=== PATIENT | female | born 1940 | race Caucasian/White ===

== ENCOUNTER 2019-11-13 06:34 | Outpatient (CLI) | payer MEDICARE, SELFPAY ==
[2019-11-13 07:29] LABS: Alanine Aminotransferase 13 U/L (4-35); Albumin Level 3.6 g/dL (3.5-5.1); Alkaline Phosphatase 154 U/L (38-126); Aspartate Amino Transferase 27 U/L (14-36); Bilirubin,Total 0.2 mg/dL (0.2-1.3); Blood Urea Nitrogen 11 mg/dL (7-17); Calcium 8.8 mg/dL (8.4-10.2); Carbon Dioxide 31 mmol/L (22-30); Chloride 101 mmol/L (98-107); Estimated Glomerular Filt Rate > 60; Glucose 96 mg/dL (65-105); Potassium 4.6 mmol/L (3.4-5.0); Sodium 137 mmol/L (137-145)
== END 2019-11-13 06:35 | disposition home or self-care (01) ==
PROVIDERS: PCP Family Medicine; Visit Provider Nurse Practitioner
DX: R82.90 Unspecified abnormal findings in urine (principal); E87.5 Hyperkalemia
CPT/HCPCS: 36415; 80053; 87077; 87086; 87088; 87186

== ENCOUNTER 2020-08-28 07:02 | Outpatient (NON) | payer MEDICARE, SELFPAY ==
[2020-08-28 23:00] LABS: SARS-CoV-2 RNA PCR Negative
== END 2020-08-28 07:03 ==
LOC: ANHCOVIDDT 07:05
PROVIDERS: Visit Provider Nurse Practitioner Family
DX: Z20.828 Contact with and (suspected) exposure to other viral communicable diseases (principal)
CPT/HCPCS: 87635; C9803; U0003

== ENCOUNTER 2020-10-13 07:32 | Outpatient (CLI) | payer MEDICARE, SELFPAY ==
--- NOTE | ~2020-10-13 | XR_ITS ---
EXAMINATION: XR chest 2V DATE: 10/13/2020 08:24 INDICATION: Acute upper respiratory tract infection. TECHNIQUE: PA and lateral views of the chest were obtained. COMPARISON: Chest radiograph dated 12/26/2017 FINDINGS: Hyperexpansion of lungs with increased lucency and architectural distortion in the upper lung zones c onsistent with emphysema better appreciated on CT dated 08/21/2017. Small nodular opacity in the left midlung zone in the region of prior more extensive airspace disease which could represent residual sc arring although differential includes malignancy. Mild increased interstitial pattern in the bilatera l lower lung zones with a few peripheral Joe B-lines consistent with minimal pulmonary edema. No p leural effusion or pneumothorax. The cardiomediastinal silhouette is normal. L1 vertebroplasty. IMPRESSION: 1. Increased interstitial pattern in the lower lung zones consistent with minimal pulmonary edema. 2. More discrete nodular opacity in the left midlung zone which could be related to scarring related to prior pneumonia although differential includes malignancy. Would recommend repeat chest CT for fur ther evaluation. Reviewed, dictated and finalized at location B. ET RUNNER IMPRESSION: 1. Increased interstitial pattern in the lower lung zones consistent with minim al pulmonary edema. 2. More discrete nodular opacity in the left midlung zone which could be relate d to scarring related to prior pneumonia although differential includes maligna ncy. Would recommend repeat chest CT for further evaluation.
[2020-10-13 08:24] LABS: Basophils Absolute Auto 0.1 K/mm3 (0.0-0.1); Basophils Percent Auto 0.6 % (0.2-1.2); Eosinophils Absolute Auto 0.3 K/mm3 (0-0.3); Eosinophils Percent Auto 3.3 % (0-4.4); Hematocrit 33.6 % (37.0-47.0); Hemoglobin 10.3 g/dL (12.0-15.0); Immature Granulocyte Absolute 0.02 K/mm3 (0.00-0.031); Immature Granulocyte Percent A 0.2 % (0-0.5); Lymphocytes Absolute Auto 2.15 K/mm3 (0.9-3.2); Lymphocytes Percent Auto 24.8 % (18.3-44.2); Mean Corpuscular HGB Conc 30.7 g/dl (32-36); Mean Corpuscular Volume 78.3 fl (80-100); Mean Platelet Volume 9.8 fl (7.4-10.4); Monocytes Absolute Auto 0.6 K/mm3 (0.1-0.6); Monocytes Percent Auto 6.9 % (2.6-8.5); Neutrophils Absolute Auto 5.6 K/mm3 (1.3-6.7); Neutrophils Percent Auto 64.2 % (45.5-73.1); Platelet Count Result 399 k/mm3 (150-375); Red Blood Count 4.29 M/mm3 (4.2-5.4); Red Cell Distribution Width 18.4 % (11.5-14.5); White Blood Count 8.7 K/mm3 (4.5-10.0)
[2020-10-13 08:34] LABS: Hemoglobin A1C 5.7 % (<5.7)
[2020-10-13 08:38] LABS: Alanine Aminotransferase 16 U/L (4-35); Albumin Level 3.4 g/dL (3.5-5.1); Alkaline Phosphatase 112 U/L (38-126); Anion Gap 2 mmol/L (8-16); Aspartate Amino Transferase 29 U/L (14-36); Bilirubin,Total 0.2 mg/dL (0.2-1.3); Blood Urea Nitrogen 16 mg/dL (7-17); Calcium 8.5 mg/dL (8.4-10.2); Carbon Dioxide 31 mmol/L (22-30); Chloride 103 mmol/L (98-107); Estimated Glomerular Filt Rate > 60; Glucose 108 mg/dL (65-105); Potassium 3.8 mmol/L (3.4-5.0); Sodium 136 mmol/L (137-145)
[2020-10-13 08:57] LABS: Creatinine Urine 63.2 mg/dL
[2020-10-13 09:01] LABS: MALB Creatinine Ratio 58.9 mg/g (0-30); Microalbumin Urine Random 37.2 mg/L (0-16.7)
== END 2020-10-13 07:33 | disposition home or self-care (01) ==
LOC: ANHLAB 07:34
PROVIDERS: PCP Nurse Practitioner Family; Visit Provider Nurse Practitioner Family
DX: J06.9 Acute upper respiratory infection, unspecified (principal); R05 Cough; J44.9 Chronic obstructive pulmonary disease, unspecified; E11.9 Type 2 diabetes mellitus without complications; F33.41 Major depressive disorder, recurrent, in partial remission; F51.01 Primary insomnia; I10 Essential (primary) hypertension
CPT/HCPCS: 36415; 71046; 80053; 82043; 83036; 84443; 85025

== ENCOUNTER 2020-11-09 09:14 | Outpatient (CLI) | payer MEDICARE, SELFPAY ==
--- NOTE | ~2020-11-09 | CT_ITS ---
EXAMINATION: CT chest abdomen pelvis w con EXAM DATE: 11/09/2020 10:00 INDICATION: Left lower lobe 9 mm nodule. Chest pain, shortness of breath, cough. Diffuse abdominal pa in. Weight loss. TECHNIQUE: Spiral CT of the chest, abdomen and pelvis was performed following intravenous injection o f 100 mL Omnipaque 350. Axial, coronal and sagittal images were reviewed. Coronal maximum intensity pixel images of chest reviewed. The dose-length product (DLP) for this examination was 271.63 mGy-c m. The exposure was tailored according to patient size (auto mA exposure control), and iterative rec onstruction (ASIR) was used as additional dose reduction technique. Comparison made to abdomen pelvi s CT 10/06/2018, chest CT 08/21/2017 FINDINGS: CHEST: There is moderate emphysema and moderate to severe hyperinflation. No interval change in the scattered spiculated perihilar opacities, consistent with postinfectious residua given long interval stability. Small amount of new postinfectious residua in the right middle lobe. There are no pleural or pericardial effusions. Tracheobronchial tree is patent. Precarinal 2.0 cm lymph node or nodes with calcifications, measured 1.8 cm in 2017. There is no pneumothorax. There is mild cardiomegal y. There is mild to moderate coronary arterial calcification, arterial sclerosis. ABDOMEN PELVIS: There is no change in the chronic left lower abdominal subcutaneous masslike density with region of calcification measuring 3 cm diameter by 1.2 cm in thickness, probably region of scarr ing, location of previous pain pump. The liver, spleen, adrenal glands and pancreas are unremarkable. Gallbladder not identified, patient likely has had cholecystectomy. There is mild biliary dilation, which is common finding following ch olecystectomy. There are small renal lesions in the left kidney consistent with cysts. Portal and sp lenic veins are patent. Kidneys enhance symmetrically. There is no hydronephrosis. The uterus is not identified and has likely been surgically resected. The bladder is unremarkable, although subopt imally evaluated due to metallic artifact from right hip replacement and left hip gamma nail.. There is no retroperitoneal or pelvic lymphadenopathy. There is extensive scattered arterial sclerotic d isease. The appendix is not positively visualized. There is no pericecal inflammatory change to suggest appe ndicitis. There is extensive sigmoid predominant colonic diverticulosis. There is no adjacent infla mmatory change to suggest diverticulitis. The stomach and small bowel are unremarkable. There is mod erate amount of colonic stool. No free intraperitoneal gas. There are no osteoblastic or osteolyt ic lesions identified. There are old right rib fractures. Mild thoracolumbar dextroscoliosis. Treated L1 vertebroplasty. Pain pump leads in the inferior aspect of the spinal canal. IMPRESSION: 1. Chronic spiculated lung opacities and mediastinal lymphadenopathy, likely prior granulomatous pro cess. 2. Chronic soft tissue density with calcification left lower anterior abdominal subcutaneous tissue, probably scarring. 3. Chronic emphysema and hyperinflation. 4. Colonic diverticulosis. Reviewed, dictated and finalized at location B. O STATION MANAGER IMPRESSION: 1. Chronic spiculated lung opacities and mediastinal lymphadenopathy, likely p rior granulomatous process. 2. Chronic soft tissue density with calcification left lower anterior abdomina l subcutaneous tissue, probably scarring. 3. Chronic emphysema and hyperinflation. 4. Colonic diverticulosis.
== END 2020-11-09 09:15 | disposition home or self-care (01) ==
PROVIDERS: PCP Nurse Practitioner Family; Visit Provider Nurse Practitioner Family
DX: R19.04 Left lower quadrant abdominal swelling, mass and lump (principal); K57.30 Diverticulosis of large intestine without perforation or abscess without bleeding; J43.9 Emphysema, unspecified
CPT/HCPCS: 71260; 74177; Q9967

== ENCOUNTER 2020-11-25 02:45 | Inpatient (IN) | payer MEDICARE, SELFPAY ==
[2020-11-25] VITALS (14 sets, daily range): BP systolic 100–149; BP diastolic 40–125; PULSE 58–79; RESP 16–28; TEMP 36.2–36.9; O2SAT 87–100; BMI 17.2
--- NOTE | ~2020-11-25 | XR_ITS ---
EXAMINATION: XR chest 1V portable DATE: 11/25/2020 03:08 INDICATION: Shortness of breath. Cough. TECHNIQUE: A single frontal view of the chest was obtained. COMPARISON: Chest 2 views 10/13/2020, chest CT 11/09/2020 FINDINGS: The lungs are hyperexpanded with lucencies, consistent with emphysema. There is a diffuse i nterstitial pattern in the lungs. There are patchy airspace opacities in the mid and lower lung zones . There is a small right pleural effusion. No pneumothorax. The heart size is normal. There are palma es of vertebroplasty in L1. IMPRESSION: 1. Diffuse lung disease, consistent with pulmonary edema versus pneumonia superimposed on emphysema. 2. Small right pleural effusion. Reviewed, dictated and finalized at location A. CULTURE FARMER IMPRESSION: 1. Diffuse lung disease, consistent with pulmonary edema versus pneumonia super imposed on emphysema. 2. Small right pleural effusion.
--- NOTE | ~2020-11-25 | XR_ITS ---
EXAMINATION: XR chest 2V DATE: 11/28/2020 12:51 INDICATION: Hypoxia. TECHNIQUE: Frontal and lateral views of the chest were obtained. COMPARISON: Chest single view 11/25/2020, chest CT 11/09/2020, chest 2 views 10/13/2020 FINDINGS: The lungs are hyperexpanded with lucencies, consistent with emphysema. There are mild airsp kieran opacities in right lower lung zone and left mid and lower lung zones. There are small pleural eff usions. No pneumothorax. The heart size is normal. There are changes of vertebroplasty at L1. There i s mild chronic anterior wedging of multiple thoracic vertebral bodies. IMPRESSION: 1. Mild airspace opacities in right lower lung zone and left mid and lower lung zones, consistent wit h pneumonia. 2. Emphysema. 3. Small pleural effusions. Reviewed, dictated and finalized at location A. IMPRESSION: 1. Mild airspace opacities in right lower lung zone and left mid and lower lung zones, consistent with pneumonia. 2. Emphysema. 3. Small pleural effusions.
--- NOTE | 2020-11-25 02:49 | ECG_ITS ---
Measurements Intervals [place] Rate: 72 P: 254 LA: 241 QRS: 30 QRSD: 98 T: 57 QT: 404 QTc: 444 Interpretive Statements SINUS RHYTHM BASELINE ARTIFACT- I, II, III, AVR, AVL, AVF, V1-V6 NORMAL ECG Electronically Signed On 11-25-2020 7:36:54 [employer]PUTY CITY CLERK by Buck Friend D.O.
[2020-11-25] MEDS: ALBUTEROL SULFATE (*SP) INHALER 2 PUFF INHALATION (03:07)
--- NOTE | 2020-11-25 03:09 | ED.GENADULT ---
HPI - General Adult General Chief complaint: Shortness of Breath/Dyspnea Stated complaint: DIFFICULTY BREATHING Time Seen by Provider: 11/25/20 02:51 History of Present Illness HPI narrative: Patient is a 80-year-old female that presents the emergency department with chief complaint of shortness of breath. Patient reports she has history of COPD and over the last several days she has been having increasing shortness of breath. The patient reports has been wheezing more at some tightness in her chest as well. Patient denies productive cough. Patient also incidentally reports that she has had some increasing swelling in her left lower extremity and right lower extremity. The patient does report that she is on chronic anticoagulation. Related Data Home Medications Medication Instructions Recorded Confirmed morphine 15 mg tablet,oral ONLY 15 mg PO Q8H tablet 10/20/19 10/12/20 (not feeding tubes) alendronate 70 mg tablet mg PO WEEKLY tablet 07/10/20 10/12/20 Allergies Allergy/AdvReac Type Severity Reaction Status Date / Time metoclopramide Allergy Severe TONGUE Verified 11/25/20 03:24 SWELLING Penicillins Allergy Mild Pruritic Verified 11/25/20 03:24 rash codeine Allergy Unknown Unknown Verified 11/25/20 03:24 duloxetine Allergy Unknown Unknown Verified 11/25/20 03:24 ibuprofen Allergy Unknown Unknown Verified 11/25/20 03:24 meperidine Allergy Unknown Unknown Verified 11/25/20 03:24 rosuvastatin Allergy Unknown Unknown Verified 11/25/20 03:24 Sulfa (Sulfonamide Allergy Unknown Unknown Verified 11/25/20 03:24 Antibiotics) sulfanilamide Allergy Unknown unknown Verified 11/25/20 03:24 Review of Systems Review of Systems: Narrative: A 10 system review of systems was completed on the patient and is negative except for what is stated in the HPI. Nursing and ancillary documentation was reviewed. 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) Essential hypertension History of cerebrovascular accident with current residual effects Multiple lung nodules Non-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 Other osteoporosis without current pathological fracture Other specified depressive episodes Peripheral artery disease Personal history of (healed) traumatic fracture Post traumatic stress disorder (PTSD) Post-traumatic stress disorder, chronic Presence of pancreatic duct stent (~1995) Primary insomnia Recurrent major depressive disorder, 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 Unspecified chronic gastritis without bleeding Upper respiratory infection, acute Surgical History Surgical History H/O: hysterectomy (~1970) Removal of tumors, cysts and adhesions History of angioplasty of peripheral vessel 01/31: stent left pop/SFA History of appendectomy (~1962) History of cholecystectomy (~1962) History of hip replacement 2017 - Right History of laparoscopy 1997 - for adhesionolysis History of laparotomy 1966, 1968 - tumor excision 1972 - hysterectomy History of lumbosacral spine surgery 1977, 1978, 1992, 1993, Hx of sinus surgery 1984, 1985 Family History Family History Father Hypertension Cerebrovascular accident Family history of diabetes mellitus in first degree relative Family history of coronary artery disease Patient's father is Mother Hypertension Cerebrovascular accident Family history of coronary artery disease Patient's mother is Sibling Hypertension Family history of coronary artery disease Grandparent Diabetes mellitus Other Family history of arthritis Family history of cardi
[2020-11-25] MEDS: MORPHINE SULFATE (*CRX) 4 MG/ML INJ IV PUSH (03:11)
[2020-11-25] MEDS: methylPREDNISolone SOD SUCC 125 MG VIAL IV PUSH (03:11)
[2020-11-25 03:20] LABS: Basophils Absolute Auto 0.1 K/mm3 (0.0-0.1); Basophils Percent Auto 0.3 % (0.2-1.2); Eosinophils Absolute Auto 0.2 K/mm3 (0-0.3); Eosinophils Percent Auto 1.1 % (0-4.4); Hematocrit 32.2 % (37.0-47.0); Hemoglobin 10.1 g/dL (12.0-15.0); Immature Granulocyte Absolute 0.09 K/mm3 (0.00-0.031); Immature Granulocyte Percent A 0.5 % (0-0.5); Lymphocytes Absolute Auto 1.24 K/mm3 (0.9-3.2); Lymphocytes Percent Auto 6.8 % (18.3-44.2); Mean Corpuscular HGB Conc 31.4 g/dl (32-36); Mean Corpuscular Hemoglobin 23.8 pg (26-34); Mean Corpuscular Volume 75.9 fl (80-100); Mean Platelet Volume 9.8 fl (7.4-10.4); Monocytes Absolute Auto 0.7 K/mm3 (0.1-0.6); Monocytes Percent Auto 3.9 % (2.6-8.5); Neutrophils Absolute Auto 15.9 K/mm3 (1.3-6.7); Neutrophils Percent Auto 87.4 % (45.5-73.1); Platelet Count Result 334 k/mm3 (150-375); Red Blood Count 4.24 M/mm3 (4.2-5.4); Red Cell Distribution Width 17.6 % (11.5-14.5); White Blood Count 18.2 K/mm3 (4.5-10.0)
[2020-11-25 03:31] LABS: Anion Gap 2 mmol/L (8-16); Blood Urea Nitrogen 17 mg/dL (7-17); Calcium 8.6 mg/dL (8.4-10.2); Carbon Dioxide 28 mmol/L (22-30); Chloride 104 mmol/L (98-107); Estimated Glomerular Filt Rate > 60; Glucose 110 mg/dL (65-105); Potassium 4.5 mmol/L (3.4-5.0); Prothrombin Time 13.9 Seconds (11.1-14.7); Sodium 134 mmol/L (137-145)
[2020-11-25 03:32] LABS: Alanine Aminotransferase 28 U/L (4-35); Albumin Level 3.6 g/dL (3.5-5.1); Alkaline Phosphatase 141 U/L (38-126); Aspartate Amino Transferase 56 U/L (14-36); Bilirubin,Total 0.2 mg/dL (0.2-1.3); Partial Thromboplastin Time 32.4 SECONDS (22.3-36.8)
[2020-11-25 03:43] LABS: NT Pro B Type Natriuretic Pept 5430 PG/ML (5-100); Troponin I 0.013 ng/mL (0.000-0.034)
[2020-11-25] MEDS: FUROSEMIDE INJ 40 MG/4 ML VIAL IV PUSH (04:33)
--- NOTE | 2020-11-25 05:15 | ADMGEN ---
This patient, Mariam Pérez, was admitted to [facility] Surg Room 316-01. Patient/family oriented to hospital policies and general routines including ID bracelet, bed and alarms, visiting hours, pain management, procedures, bathroom and other care routines, personal items, smoking policy, room service/diet, and visiting hours. Information on how to activate the Rapid Response Team has been discussed. Patient/Family are encouraged to report perceived risks to care and to ask questions if they do not understand what they are told or what they should do.
[2020-11-25] MEDS: IPRATROPIUM BR 0.02% INH SOLN 0.5 MG/2.5 ML VIAL INHALATION (08:41)
[2020-11-25] MEDS: ALBUTEROL SULFATE NEB 2.5 MG/0.5 ML INH 5 MG INHALATION (08:41)
[2020-11-25] MEDS: ACETAMINOPHEN 325 MG TABLET 650 MG PO ×2 (11:44→17:58)
[2020-11-25] MEDS: methylPREDNISolone SOD SUCC 125 MG VIAL 60 MG IV PUSH ×3 (11:45→21:10)
[2020-11-25 12:25] LABS: Glucose Point of Care 207 (65-105)
[2020-11-25] MEDS: MORPHINE SULFATE (*CRX) 15 MG TABCR PO ×2 (15:37→21:10)
[2020-11-25] MEDS: AMIODARONE HCL 200 MG TABLET BY MOUTH (15:38)
[2020-11-25] MEDS: METOPROLOL SUCCINATE EXT REL 50 MG TABCR BY MOUTH (15:38)
--- NOTE | 2020-11-25 16:31 | PM.IMHP ---
H&P: HPI History of Present Illness Date/Time: 11/25/20 16:31 Pt admitted with SOB Pt has history of hypertension, dyslipidemia, diabetes, COPD, atrial fibrillation, peripheral arterial disease, GERD, seizures, history of stroke, chronic back pain and osteoporosis he is here complaining of worsening shortness of breath with exertion with chest tightness and wheezing. Pt has known history of COPD but has symptoms of cough and wheeze so covid is being checked. pt has multiple medical problems listed above. And has not been well for few days. 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) Essential hypertension History of cerebrovascular accident with current residual effects Multiple lung nodules Non-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 Other osteoporosis without current pathological fracture Other specified depressive episodes Peripheral artery disease Personal history of (healed) traumatic fracture Post traumatic stress disorder (PTSD) Post-traumatic stress disorder, chronic Presence of pancreatic duct stent (~1995) Primary insomnia Recurrent major depressive disorder, 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 Unspecified chronic gastritis without bleeding Upper respiratory infection, acute Surgical History Surgical History H/O: hysterectomy (~1970) Removal of tumors, cysts and adhesions History of angioplasty of peripheral vessel 01/31: stent left pop/SFA History of appendectomy (~1962) History of cholecystectomy (~1962) History of hip replacement 2018 - Right History of laparoscopy 1997 - for adhesionolysis History of laparotomy 1966, 1968 - tumor excision 1972 - hysterectomy History of lumbosacral spine surgery 1977, 1978, 1992, 1994, Hx of sinus surgery 1984, 1986 Family History Family History Father Hypertension Cerebrovascular accident Family history of diabetes mellitus in first degree relative Family history of coronary artery disease Patient's father is Mother Hypertension Cerebrovascular accident Family history of coronary artery disease Patient's mother is Sibling Hypertension Family history of coronary artery disease Grandparent Diabetes mellitus Other Family history of arthritis Family history of cardiovascular disease Family history of lung cancer Family history of lupus erythematosus Social History Social History Years smoked: 50 Smoking status: Current some day smoker Tobacco type: cigarettes Second hand tobacco smoke exposure: No Smoking end date: 09/15/08 Alcohol intake: current Drinks per week: 1 Substance use: never Substance use type: does not use Gender identity (if verbalized by the patient): Female Sexual Orientation (if Verbalized by the Patient): Straight or Heterosexual Spiritual care concerns: Yes ( Praying to God that I wasn't going to . I have so much still to do. ) Meds Home Medications and Allergies Home Medications Medication Instructions Recorded Confirmed Type morphine 15 mg tablet,oral ONLY 15 mg PO Q8H tablet 10/20/19 11/25/20 History (not feeding tubes) gabapentin 600 mg tablet See Rx Instructions .ROUTE 03/20/20 11/25/20 Rx .COMPLEX #360 tablet atorvastatin 40 mg tablet See Rx Instructions .ROUTE 04/26/20 11/25/20 Rx .COMPLEX #90 tablet nitroglycerin 0.4 mg sublingual 0.4 mg SUBLINGUAL Q5M P
[2020-11-25 17:09] LABS: Glucose Point of Care 138 (65-105)
[2020-11-25] MEDS: APIXABAN 2.5 MG TABLET PO (17:59)
[2020-11-25] MEDS: FAMOTIDINE 20 MG TABLET PO (17:59)
[2020-11-25] MEDS: GABAPENTIN 300 MG CAPSULE BY MOUTH ×2 (17:59→21:10)
[2020-11-25 18:54] LABS: SARS-CoV-2 RNA PCR Negative
[2020-11-25] MEDS: levETIRAcetam 500 MG TABLET BY MOUTH (21:10)
[2020-11-25 22:17] LABS: Glucose Point of Care 153 (65-105)
[2020-11-26] VITALS (7 sets, daily range): BP systolic 142–158; BP diastolic 45–77; PULSE 56–68; RESP 18–20; TEMP 36.3–36.7; O2SAT 96–100
[2020-11-26] MEDS: ACETAMINOPHEN 325 MG TABLET 650 MG PO (03:40)
[2020-11-26] MEDS: methylPREDNISolone SOD SUCC 125 MG VIAL 60 MG IV PUSH ×4 (03:40→22:06)
--- NOTE | 2020-11-26 05:21 | PC.NURSE ---
Daylight Savings Time For Daylight Savings Time Ending in the Fall - Clocks are moved back. For Daylight Savings Time Beginning in the Spring - Clocks are moved ahead. For [facility], the time of change occurs at 0200 hrs. Time is taken from the buffet server. This entry on the patient's chart recognizes the change in time reflected during documentation. Example: 2 entries for vital signs may be charted for 0200 hrs.
[2020-11-26] MEDS: MORPHINE SULFATE (*CRX) 15 MG TABCR PO ×3 (06:08→23:53)
[2020-11-26 06:27] LABS: Anion Gap 2 mmol/L (8-16); Blood Urea Nitrogen 22 mg/dL (7-17); Calcium 8.7 mg/dL (8.4-10.2); Carbon Dioxide 33 mmol/L (22-30); Chloride 100 mmol/L (98-107); Estimated CRCL calculation 40 ml/min; Estimated Glomerular Filt Rate > 60; Glucose 134 mg/dL (65-105); Potassium 4.3 mmol/L (3.4-5.0); Sodium 135 mmol/L (137-145)
[2020-11-26 06:52] LABS: Hematocrit 32.2 % (37.0-47.0); Mean Corpuscular HGB Conc 31.1 g/dl (32-36); Mean Corpuscular Hemoglobin 23.3 pg (26-34); Mean Corpuscular Volume 75.1 fl (80-100); Mean Platelet Volume 10.5 fl (7.4-10.4); Platelet Count Result 330 k/mm3 (150-375); Red Blood Count 4.29 M/mm3 (4.2-5.4); Red Cell Distribution Width 17.3 % (11.5-14.5); White Blood Count 14.5 K/mm3 (4.5-10.0)
[2020-11-26 08:13] LABS: Glucose Point of Care 120 (65-105)
[2020-11-26] MEDS: GABAPENTIN 300 MG CAPSULE BY MOUTH ×3 (08:52→17:10)
[2020-11-26] MEDS: SOLIFENACIN 5 MG TABLET PO (08:52)
[2020-11-26] MEDS: FAMOTIDINE 20 MG TABLET PO ×2 (08:52→17:09)
[2020-11-26] MEDS: levETIRAcetam 500 MG TABLET BY MOUTH (08:52)
[2020-11-26] MEDS: metFORMIN HCL 500 MG TABLET PO (08:52)
[2020-11-26] MEDS: METOPROLOL SUCCINATE EXT REL 50 MG TABCR BY MOUTH (08:53)
[2020-11-26] MEDS: AMIODARONE HCL 200 MG TABLET BY MOUTH (08:53)
[2020-11-26] MEDS: APIXABAN 2.5 MG TABLET PO ×2 (08:53→17:10)
--- NOTE | 2020-11-26 12:18 | PM.IMPN ---
Progress Note: A&P Assessment and Plan (1) Acute exacerbation of chronic obstructive pulmonary disease: Code(s): J44.1 - Chronic obstructive pulmonary disease with (acute) exacerbation Status: Acute Assessment and Plan: Bronchodilators, steroid inhaler, iv steroids, oral levaquin D/w patient that she may need home oxygen at discharge (2) A-fib: Qualifiers: Atrial fibrillation type: unspecified Qualified Code(s): I48.91 - Unspecified atrial fibrillation Code(s): I48.91 - Unspecified atrial fibrillation Status: Chronic Assessment and Plan: Continue pts betablocker and amiodarone (3) Tobacco use: Code(s): Z72.0 - Tobacco use Status: Acute Assessment and Plan: Advised to quit (4) GERD (gastroesophageal reflux disease): Qualifiers: Esophagitis presence: esophagitis presence not specified Qualified Code(s): K21.9 - Gastro-esophageal reflux disease without esophagitis Code(s): K21.9 - Gastro-esophageal reflux disease without esophagitis Status: Acute Assessment and Plan: On pepcid (5) Type 2 diabetes mellitus with other circulatory complications: Code(s): E11.59 - Type 2 diabetes mellitus with other circulatory complications Status: Acute Assessment and Plan: Accuchecks, SSI, continue metformin (6) Peripheral artery disease: Code(s): I73.9 - Peripheral vascular disease, unspecified Status: Acute Assessment and Plan: On gabapentin and iv morphine for chronic pain Subjective Date/time seen: 11/26/20 12:18 Interval history: 11/26: Here for COPD exacerbation. Still sob with conversation. Does not wear home oxygen. C/o chronic LUQ to LLQ abdominal pain, moderate, aching/cramping, after eating. Persists for minutes to hours. No change in stool or urine. No n/v. No sure about weight change. Hx pain pump removed and pocket infection in past. CT Abd here 11/09 showed chronic scarring in suerficial LLQ, chronic lung granulomas, diverticulosis, COPD. Review of Systems Review of Systems: All systems reviewed & are unremarkable except as noted in HPI and below Exam Narrative: Exam Narrative: HEENT: PERRL, sclerae nonicteric, pharyngeal mucosa pink and intact NECK: No JVD, adenopathy, or thyromegaly CHEST: Mildly tachypneic. Increased APD. Coarse BS. HEART: NL S1/S2, regular, no murmur ABDOMEN: BS+, soft, nontender, no mass, no bruits EXTREMITIES: No cyanosis, edema, or clubbing NEUROLOGIC: CN intact and symmetric to inspection. MUSCULOSKELETAL: Tone and strength symmetric. PSYCH: Alert. Oriented to person, place, and time. Anxious. Objective Data Vital Signs Vital Signs: Vital Signs - 24 hr 11/25/20 12:00 11/25/20 16:00 11/25/20 20:22 Temperature 97.3 F L 97.5 F L Pulse Rate 59 L 62 Respiratory Rate 18 20 Blood Pressure 120/55 L 118/53 L Pulse Oximetry 99 98 96 11/25/20 21:20 11/25/20 21:24 11/26/20 06:00 Temperature 98.3 F 98.0 F Pulse Rate 62 58 L 59 L Respiratory Rate 20 20 18 Blood Pressure 125/40 L 158/53 H Pulse Oximetry 96 98 100 11/26/20 08:00 11/26/20 08:44 Temperature Pulse Rate Respiratory Rate Blood Pressure Pulse Oximetry 96 96 Intake/Output Intake/Output: Intake & Output 11/23/20 11/24/20 11/25/20 11/27/20 23:59 23:59 23:59 00:59 Intake Total 2760 570 Output Total 3750 800 Balance -990 -230 Meds/Results Medications: Active Medications Generic Name Dose Route Start Last Admin Trade Name Freq PRN Reason Stop Dose Admin Acetaminophen 650 mg 11/25/20 11:27 11/26/20 03:40 Acetaminophen 325 Mg Tablet PO 650 mg Q8H PRN Administration Mild Pain (1-3) or Fever Amiodarone HCl 200 mg 11/25/20 14:25 11/26/20 08:53 Amiodarone Hcl 200 Mg Tablet BY MOUTH 200 mg DAILY CHAY Administration Apixaban 2.5 mg 11/25/20 17:00 11/26/20 08:53 Apixaban 2.5 Mg Tablet PO 2.5 mg BID CHAY Admin
[2020-11-26 12:19] LABS: Glucose Point of Care 140 (65-105)
[2020-11-26] MEDS: LORazepam (*CRX) 0.5 MG TABLET PO (14:43)
[2020-11-26 17:13] LABS: Glucose Point of Care 136 (65-105)
[2020-11-26] MEDS: ONDANSETRON INJ 4 MG/2 ML VIAL IV PUSH (22:03)
[2020-11-26 22:45] LABS: Glucose Point of Care 126 (65-105)
[2020-11-27] VITALS (8 sets, daily range): BP systolic 131–161; BP diastolic 36–63; PULSE 66–109; RESP 18–20; TEMP 36.4–36.8; O2SAT 91–96; BMI 17.2
[2020-11-27] MEDS: LORazepam (*CRX) 0.5 MG TABLET PO ×2 (02:09→09:52)
[2020-11-27] MEDS: ACETAMINOPHEN 325 MG TABLET 650 MG PO ×2 (02:09→09:52)
[2020-11-27] MEDS: methylPREDNISolone SOD SUCC 125 MG VIAL 60 MG IV PUSH ×4 (02:09→23:18)
[2020-11-27] MEDS: MORPHINE SULFATE (*CRX) 15 MG TABCR PO ×2 (06:01→13:50)
[2020-11-27 06:02] LABS: Hematocrit 38.2 % (37.0-47.0); Hemoglobin 11.7 g/dL (12.0-15.0); Mean Corpuscular HGB Conc 30.6 g/dl (32-36); Mean Corpuscular Hemoglobin 23.5 pg (26-34); Mean Corpuscular Volume 76.9 fl (80-100); Mean Platelet Volume 10.2 fl (7.4-10.4); Platelet Count Result 523 k/mm3 (150-375); Red Blood Count 4.97 M/mm3 (4.2-5.4); Red Cell Distribution Width 17.7 % (11.5-14.5)
[2020-11-27 06:55] LABS: Anion Gap 4 mmol/L (8-16); Blood Urea Nitrogen 27 mg/dL (7-17); Calcium 8.8 mg/dL (8.4-10.2); Carbon Dioxide 31 mmol/L (22-30); Chloride 101 mmol/L (98-107); Estimated CRCL calculation 40 ml/min; Estimated Glomerular Filt Rate > 60; Glucose 133 mg/dL (65-105); Potassium 4.2 mmol/L (3.4-5.0); Sodium 136 mmol/L (137-145)
[2020-11-27 07:52] LABS: Glucose Point of Care 144 (65-105)
[2020-11-27] MEDS: metFORMIN HCL 500 MG TABLET PO (08:26)
[2020-11-27] MEDS: AMIODARONE HCL 200 MG TABLET BY MOUTH (08:27)
[2020-11-27] MEDS: levETIRAcetam 500 MG TABLET BY MOUTH (08:28)
[2020-11-27] MEDS: APIXABAN 2.5 MG TABLET PO ×2 (08:28→17:29)
[2020-11-27] MEDS: GABAPENTIN 300 MG CAPSULE BY MOUTH ×3 (08:28→17:30)
[2020-11-27] MEDS: FAMOTIDINE 20 MG TABLET PO ×2 (08:28→17:30)
[2020-11-27] MEDS: METOPROLOL SUCCINATE EXT REL 50 MG TABCR BY MOUTH (08:29)
[2020-11-27] MEDS: SOLIFENACIN 5 MG TABLET PO (08:29)
--- NOTE | 2020-11-27 11:39 | PCNSR ---
On 11/27/20, the student, Phuong Cam, provided care and completed [facility] documentation on this patient. I have reviewed the student's documentation and agree with the findings.
[2020-11-27 12:09] LABS: Glucose Point of Care 125 (65-105)
--- NOTE | 2020-11-27 13:57 | PM.IMPN ---
Progress Note: A&P Assessment and Plan (1) Acute exacerbation of chronic obstructive pulmonary disease: Code(s): J44.1 - Chronic obstructive pulmonary disease with (acute) exacerbation Status: Acute Assessment and Plan: Pt is on breathing treatment, steroid inhaler, iv steroids, oral levaquin, Cxr shows emphysema changes. (2) Cough: Code(s): R05 - Cough Status: Acute Assessment and Plan: Covid is negative, pt is a smoker (3) A-fib: Qualifiers: Atrial fibrillation type: unspecified Qualified Code(s): I48.91 - Unspecified atrial fibrillation Code(s): I48.91 - Unspecified atrial fibrillation Status: Chronic Assessment and Plan: Continue pts betablocker and amiodarone (4) Tobacco use: Code(s): Z72.0 - Tobacco use Status: Acute Assessment and Plan: Adviced to quit (5) GERD (gastroesophageal reflux disease): Qualifiers: Esophagitis presence: esophagitis presence not specified Qualified Code(s): K21.9 - Gastro-esophageal reflux disease without esophagitis Code(s): K21.9 - Gastro-esophageal reflux disease without esophagitis Status: Acute Assessment and Plan: On pepcid (6) Type 2 diabetes mellitus with other circulatory complications: Code(s): E11.59 - Type 2 diabetes mellitus with other circulatory complications Status: Acute Assessment and Plan: Accuchecks, SSI, continue metformin (7) Peripheral artery disease: Code(s): I73.9 - Peripheral vascular disease, unspecified Status: Acute Assessment and Plan: On gabapentin and iv morphine for severe pain Subjective Date/time seen: 11/27/20 13:57 Interval history: 11/26: Here for COPD exacerbation. Multiple medical problems, hypertension, dyslipidemia, diabetes, COPD, atrial fibrillation, peripheral arterial disease, GERD, seizures, history of stroke, chronic back pain and osteoporosis, has pain pump in situ complains of leg pains today. Review of Systems Review of Systems: All systems reviewed & are unremarkable except as noted in HPI and below Exam Narrative: Exam Narrative: Tired appearing HENMT: Head: other (frail elderly cachexic ) Eyes: Pupils: Equal, round and reactive pupils present Resp: Effort & Inspection: Actively coughing Auscultation: diminished lung sounds Cardio: Heart sounds: S1 normal heart sound present and S2 normal heart sound present GI: Inspection: normal to inspection Auscultation: normal bowel sounds Skin: General skin exam: normal color and dry skin Neuro: Cranial nerves: Yes CN's II-XII intact bilaterally and Yes Equal, round and reactive pupils present Cognition (Neuro): normal cognition Speech: normal speech Motor exam (neuro): 5/5 motor strength present throughout Extrem: General: normal to inspection and other (Pain in her bilateral feet ) Psych: Appearance: grossly normal Mental Status: mental status grossly normal Objective Data Vital Signs Vital Signs: Vital Signs - 24 hr 11/26/20 14:00 11/26/20 20:00 11/26/20 20:55 Temperature 36.7 C Pulse Rate 56 L 68 Respiratory Rate 20 20 Blood Pressure 142/45 H Pulse Oximetry 99 97 97 11/26/20 22:00 11/27/20 06:00 11/27/20 07:35 Temperature 36.3 C L 36.5 C Pulse Rate 68 71 Respiratory Rate 20 18 Blood Pressure 145/77 H 154/63 H Pulse Oximetry 97 94 96 11/27/20 08:27 11/27/20 08:29 11/27/20 08:56 Temperature Pulse Rate 68 68 Respiratory Rate Blood Pressure Pulse Oximetry 93 Intake/Output Intake/Output: Intake & Output 11/24/20 11/25/20 11/26/20 11/27/20 22:59 22:59 23:59 23:59 Intake Total 340 Output Total Balance 340 Meds/Results Medications: Active Medications Generic Name Dose Route Start Last Admin Trade Name Freq PRN Reason Stop Dose Admin Acetaminophen 650 mg 11/25/20 11:27 11/27/20 09:52 Acetaminophen 325 Mg Tablet PO 65
[2020-11-27 17:33] LABS: Glucose Point of Care 133 (65-105)
[2020-11-28] VITALS (7 sets, daily range): BP systolic 121–175; BP diastolic 46–54; PULSE 52–102; RESP 16–18; TEMP 36.2–36.4; O2SAT 95–100
[2020-11-28] MEDS: methylPREDNISolone SOD SUCC 125 MG VIAL 60 MG IV PUSH ×3 (04:00→13:33)
[2020-11-28 07:50] LABS: Glucose Point of Care 104 (65-105)
[2020-11-28] MEDS: MORPHINE SULFATE (*CRX) 15 MG TABCR PO ×3 (08:25→22:02)
[2020-11-28] MEDS: metFORMIN HCL 500 MG TABLET PO (08:26)
[2020-11-28] MEDS: FAMOTIDINE 20 MG TABLET PO ×2 (08:27→17:03)
[2020-11-28] MEDS: AMIODARONE HCL 200 MG TABLET BY MOUTH (08:27)
[2020-11-28] MEDS: APIXABAN 2.5 MG TABLET PO ×2 (08:27→17:03)
[2020-11-28] MEDS: levETIRAcetam 500 MG TABLET BY MOUTH ×2 (08:28→20:13)
[2020-11-28] MEDS: GABAPENTIN 300 MG CAPSULE BY MOUTH ×4 (08:28→20:12)
[2020-11-28] MEDS: METOPROLOL SUCCINATE EXT REL 50 MG TABCR BY MOUTH (08:28)
[2020-11-28] MEDS: SOLIFENACIN 5 MG TABLET PO (08:29)
[2020-11-28 11:56] LABS: Glucose Point of Care 182 (65-105)
[2020-11-28 17:35] LABS: Glucose Point of Care 144 (65-105)
--- NOTE | 2020-11-28 17:48 | PM.IMPN ---
Progress Note: A&P Assessment and Plan (1) Acute exacerbation of chronic obstructive pulmonary disease: Code(s): J44.1 - Chronic obstructive pulmonary disease with (acute) exacerbation Status: Acute Assessment and Plan: Patient having clinical improvement with Solu-Medrol. Minimal wheezing at this time. Continue Symbicort. She is not on inhalers but currently on room air so will hold off on adding this. Switch to prednisone. (2) Cough: Code(s): R05 - Cough Status: Acute Assessment and Plan: Chest x-ray on admission showing diffuse lung disease. Covid is negative. BNP was 5430. Echocardiogram in 2018 showing normal EF with grade 1 diastolic dysfunction. Repeat chest x-ray more consistent with pneumonia. Patietn with multiple allergies. Will give Lasix x 1 and start azithromycin. monitor QTc. (3) A-fib: Qualifiers: Atrial fibrillation type: unspecified Qualified Code(s): I48.91 - Unspecified atrial fibrillation Code(s): I48.91 - Unspecified atrial fibrillation Status: Chronic Assessment and Plan: Patient was in normal sinus rhythm on admission by EKG. Heart rate well controlled. Continue amiodarone and Toprol XL. Continue Eliquis. (4) Type 2 diabetes mellitus with other circulatory complications: Code(s): E11.59 - Type 2 diabetes mellitus with other circulatory complications Status: Acute Assessment and Plan: A1c 5.7 in September. The patient's blood glucose was reviewed on 11/28 Glucose remains well controlled. Continue AccuCheks covering with sliding scale. Hypoglycemia protocol available as needed. Continue current medications. (5) Tobacco use: Code(s): Z72.0 - Tobacco use Status: Acute Assessment and Plan: Patient has been educated about the benefits of smoking cessation. (6) DVT prophylaxis: Code(s): Z29.9 - Encounter for prophylactic measures, unspecified Status: Acute Assessment and Plan: Eliquis Subjective Date/time seen: 11/28/20 17:48 Interval history: 80yo female with pAFib, COPD and DM here for SOB. Patient eating well. Walking to the bathroom. Pedal edema is much better. Wheezing is improved. Still has a cough productive of yellowish sputum. Also complains of sinus drainage. No chest pain. No shortness of breath Exam Narrative: Exam Narrative: AF 97.5 121/50 102 16 100% ra Gen -thin female no acute distress. Chest -left lower lobe inspiratory crackles otherwise few scattered expiratory wheezes. Normal respiratory rate. No conversational dyspnea CV - RRR S1/S2. Abd - Soft, NT/ND, Positive BS. left mid-abd non tender mass (chronic without change) Ext - trace pedal edema Psych - Nml mood and affect Skin - Warm and dry Objective Data Vital Signs Vital Signs: Vital Signs - 24 hr 11/27/20 20:00 11/27/20 21:52 11/28/20 06:00 Temperature 98.3 F 97.6 F Pulse Rate 109 H 55 L Respiratory Rate 18 18 Blood Pressure 131/36 L 164/46 H Pulse Oximetry 94 96 99 11/28/20 07:35 11/28/20 08:27 11/28/20 08:28 Temperature Pulse Rate 60 60 Respiratory Rate Blood Pressure Pulse Oximetry 100 11/28/20 08:48 11/28/20 14:00 Temperature 97.5 F L Pulse Rate 52 L 102 H Respiratory Rate 16 16 Blood Pressure 121/50 L Pulse Oximetry 95 100 Intake/Output Intake/Output: Intake & Output 11/25/20 11/26/20 11/27/20 11/28/20 22:59 23:59 23:59 23:59 Intake Total 340 640 Output Total 0 400 Balance 340 240 Meds/Results Medications: Active Medications Generic Name Dose Route Start Last Admin Trade Name Freq PRN Reason Stop Dose Admin Acetaminophen 650 mg 11/25/20 11:27 11/27/20 09:52 Acetaminophen 325 Mg Tablet PO 650 mg Q8H PRN Administration Mild Pain (1-3) or Fever Amiodarone HCl 200 mg 11/25/20 14:25 11/28/20 08:27 Amiodarone Hcl 200 Mg Tablet BY MOUTH 200 mg DAILY [facility] Ad
[2020-11-28] MEDS: AZITHROMYCIN 250 MG TABLET 500 MG PO (18:48)
[2020-11-28] MEDS: ACETAMINOPHEN 325 MG TABLET 650 MG PO (20:20)
[2020-11-28] MEDS: LORazepam (*CRX) 0.5 MG TABLET PO (20:21)
[2020-11-29] MEDS: MORPHINE SULFATE (*CRX) 15 MG TABCR PO (05:18)
[2020-11-29 05:56] VITALS: BP 164/58; PULSE 50; RESP 18; TEMP 36.4; O2SAT 96
[2020-11-29 06:14] LABS: Hematocrit 32.6 % (37.0-47.0); Hemoglobin 9.8 g/dL (12.0-15.0); Mean Corpuscular HGB Conc 30.1 g/dl (32-36); Mean Corpuscular Hemoglobin 23.1 pg (26-34); Mean Corpuscular Volume 76.9 fl (80-100); Mean Platelet Volume 10.3 fl (7.4-10.4); Platelet Count Result 329 k/mm3 (150-375); Red Blood Count 4.24 M/mm3 (4.2-5.4); Red Cell Distribution Width 17.2 % (11.5-14.5); White Blood Count 10.2 K/mm3 (4.5-10.0)
[2020-11-29 06:24] LABS: Anion Gap 2 mmol/L (8-16); Blood Urea Nitrogen 22 mg/dL (7-17); Carbon Dioxide 30 mmol/L (22-30); Chloride 103 mmol/L (98-107); Estimated CRCL calculation 47 ml/min; Estimated Glomerular Filt Rate > 60; Glucose 98 mg/dL (65-105); Magnesium 1.8 mg/dL (1.6-2.3); Phosphorus 2.8 mg/dL (2.5-4.5); Potassium 4.4 mmol/L (3.4-5.0); Sodium 135 mmol/L (137-145)
--- NOTE | 2020-11-29 07:00 | ECG_ITS ---
Measurements Intervals [place] Rate: 55 P: 87 RI: 165 QRS: 6 QRSD: 96 T: 32 QT: 487 QTc: 470 Interpretive Statements SINUS BRADYCARDIA PROLONGED QT INTERVAL BASELINE ARTIFACT- I, II, III, AVR, AVL, AVF, V1 ABNORMAL ECG Electronically Signed On 11-29-2020 9:04:27 CDT by Buck Friend D.O.
--- NOTE | 2020-11-29 07:32 | PC.NURSE ---
Patient stated that she did not get a lorazepam as requested and that the white pill was a Eloquis. She was shown the pill with it's identifiers on [employer]. After taking her pills she appeared to rest quietly through the night and woke suddenly in the AM getting out of bed w/o assistance and running to the BR.
[2020-11-29] MEDS: predniSONE 20 MG TABLET 40 MG PO (07:50)
[2020-11-29] MEDS: GABAPENTIN 300 MG CAPSULE BY MOUTH ×2 (07:50→12:34)
[2020-11-29] MEDS: metFORMIN HCL 500 MG TABLET PO (07:50)
[2020-11-29] MEDS: AMIODARONE HCL 200 MG TABLET BY MOUTH (07:51)
[2020-11-29] MEDS: AZITHROMYCIN 250 MG TABLET PO (07:51)
[2020-11-29] MEDS: FAMOTIDINE 20 MG TABLET PO (07:51)
[2020-11-29] MEDS: APIXABAN 2.5 MG TABLET PO (07:51)
[2020-11-29 07:52] LABS: Glucose Point of Care 103 (65-105)
[2020-11-29] MEDS: FUROSEMIDE INJ 40 MG/4 ML VIAL 20 MG IV PUSH (07:52)
[2020-11-29] MEDS: METOPROLOL SUCCINATE EXT REL 50 MG TABCR BY MOUTH (07:53)
[2020-11-29] MEDS: SOLIFENACIN 5 MG TABLET PO (07:53)
[2020-11-29] MEDS: levETIRAcetam 500 MG TABLET BY MOUTH (07:55)
[2020-11-29 08:00] VITALS: PULSE 60; RESP 18; O2SAT 96
[2020-11-29 08:15] LABS: Iron 26 ug/dL (37-170)
[2020-11-29 08:27] LABS: Percent Iron Saturation 7 % (20-50)
[2020-11-29 12:12] LABS: Glucose Point of Care 227 (65-105)
[2020-11-29] MEDS: INSULIN ASPART (*BKC) 100 UNITS/ML SUB-Q (12:46)
[2020-11-29 14:00] VITALS: BP 138/47; PULSE 60; RESP 18; TEMP 36.3; O2SAT 94
--- NOTE | 2020-11-29 14:04 | PM.DS ---
DS: Admitting Diagnosis Admitting Diagnosis Admitting Diagnosis: SOB DS: Discharge Diagnosis Discharge Diagnosis (1) Acute exacerbation of chronic obstructive pulmonary disease: Code(s): J44.1 - Chronic obstructive pulmonary disease with (acute) exacerbation Status: Acute Assessment and Plan: Patient felt to have a COPD exacerbation. She was started on Solu-Medrol and had clinical improvement. Wheezing resolved. We continued her Symbicort. She was able to be transitioned to prednisone. She was able to be weaned to room air. (2) Cough: Code(s): R05 - Cough Status: Acute Assessment and Plan: Chest x-ray on admission showing diffuse lung disease. Covid is negative. BNP was 5430. Echocardiogram in 2018 showing normal EF with grade 1 diastolic dysfunction. Repeat chest x-ray showing mild airspace opacities in right lower lung zone and left mid and lower lung zones. Patient with multiple allergies. She was given Lasix x 1 and started on azithromycin. Her QTc increased to 470. Decided not to continue abx since no fever. WBC was elevated but on steroids on admission. And she had good results with the Lasix. (3) A-fib: Qualifiers: Atrial fibrillation type: unspecified Qualified Code(s): I48.91 - Unspecified atrial fibrillation Code(s): I48.91 - Unspecified atrial fibrillation Status: Chronic Assessment and Plan: Patient was in normal sinus rhythm on admission by EKG. Heart rate well controlled. We continued her amiodarone and Toprol XL. We continued her Eliquis. (4) Type 2 diabetes mellitus with other circulatory complications: Code(s): E11.59 - Type 2 diabetes mellitus with other circulatory complications Status: Acute Assessment and Plan: A1c 5.7 in September. The patient's blood glucose was monitored closely and it remained well controlled. Continue AccuCheks covering with sliding scale. Hypoglycemia protocol available as needed. (5) Tobacco use: Code(s): Z72.0 - Tobacco use Status: Acute Assessment and Plan: Patient was educated about the benefits of smoking cessation. DS: Summary Hospital Course Reason for hospitalization: 80yo female with pAFib, COPD and DM here for SOB. Please see H&P for details Hospital Course: Please see above for details of hospital course. Status at Discharge Cognitive/behavioral status at discharge: Stable Functional status at discharge: independent ambulation Overall status at discharge: patient is back to baseline Time Spent with Patient Time attestation: Total time spent providing and/or coordinating discharge services: 35 minutes Time spent: Greater than 30 minutes Exam Narrative: Exam Narrative: Cough is better. No chest pain or shortness of breath. Slight wheezing. She states ?I am 100% better compared to when I came in . AF 97.4 138/47 60 18 94% ra Gen -thin female no acute distress. Chest - CTA bilaterally, distant BS, nml air exchange, no wheezing CV - RRR S1/S2. Abd - Soft, NT/ND, Positive BS. Ext - no pedal edema Psych - Nml mood and affect Skin - Warm and dry DS: Data Data Completed and Pending Labs on day of discharge: Labs from last 24 hours 11/29/20 11/29/20 11/29/20 12:02 07:37 06:00 WBC RBC Hgb Hct MCV MCH MCHC RDW Plt Count MPV Sodium Potassium Chloride Carbon Dioxide Anion Gap BUN Creatinine Estim Creat Clear Calc Estimated GFR Glucose POC Capillary Glucose 227 H 103 Calcium Phosphorus Magnesium Iron 26 L TIBC 382 % Saturation 7 L Ferritin 21.80 Albumin 11/29/20 11/29/20 11/28/20 06:00 06:00 17:07 WBC 10.2 H RBC 4.24 Hgb 9.8 L Hct 32.6 L MCV 76.9 L MCH 23.1 L MCHC 30.1 L RDW 17.2 H Plt Count 329 MPV 10.3 Sodium 135 L Potassium 4.4 Chloride 103 Carbon Dioxide 30
== END 2020-11-29 15:40 | disposition home or self-care (01) | DRG 192 ==
LOC: ANHED 04:24 → ANH3MEDSUR 04:46
PROVIDERS: Family Medicine; Internal Medicine; Admitting Provider Family Medicine; Emergency Provider Emergency Medicine; PCP Family Medicine; Visit Provider Internal Medicine
DX: J44.1 Chronic obstructive pulmonary disease with (acute) exacerbation (principal); Z20.822 Contact with and (suspected) exposure to COVID-19; R05 Cough; F17.210 Nicotine dependence, cigarettes, uncomplicated; I10 Essential (primary) hypertension; I48.91 Unspecified atrial fibrillation; E11.51 Type 2 diabetes mellitus with diabetic peripheral angiopathy without gangrene; E78.5 Hyperlipidemia, unspecified; F43.12 Post-traumatic stress disorder, chronic; K21.9 Gastro-esophageal reflux disease without esophagitis; Z28.21 Immunization not carried out because of patient refusal; Z79.01 Long term (current) use of anticoagulants; Z79.84 Long term (current) use of oral hypoglycemic drugs; Z79.899 Other long term (current) drug therapy; Z86.73 Personal history of transient ischemic attack (TIA), and cerebral infarction without residual deficits
CPT/HCPCS: 36415; 71045; 71046; 80048; 80069; 80076; 82728; 82948; 83540; 83550; 83735; 83880; 84484; 85025; 85027; 85610; 85730; 87040; 93005; 94640; 96374; 96375; 96376; 99285; A9270; C9803; G0378; J1815; J1940; J2270; J2405; J2930; J7512; U0003; U0005

== ENCOUNTER 2020-12-19 15:06 | Emergency (ER) | payer MEDICARE, SELFPAY ==
--- NOTE | ~2020-12-19 | XR_ITS ---
EXAMINATION: XR foot LT min 3V, XR ankle LT min 3V EXAM DATE: 12/19/2020 15:58 (accession [id number]), 12/19/2020 15:59 (accession [id number]) INDICATION: Ulcerations lat Lt ankle, post Lt heel; type 2 diabetic. TECHNIQUE: Left foot dorsoplantar, lateral and oblique projections obtained and reviewed. Left ankle frontal, lateral and oblique projections obtained and reviewed. Comparison is made to prior examinat ion from 10/02/2018. FINDINGS: There is severe edema over the left ankle and foot. Some ulcerations identified along the l ateral aspect of the ankle. There are no bony erosions identified. There are no acute fractures ident ified. No radiopaque foreign bodies identified. IMPRESSION: 1. No acute osseous findings. 2. Severe subcutaneous edema with soft tissue ulceration. Reviewed, dictated and finalized at location A. IMPRESSION: 1. No acute osseous findings. 2. Severe subcutaneous edema with soft tissue ulceration.
[2020-12-19 15:14] VITALS: BP 137/70; PULSE 61; RESP 16; TEMP 36.9; O2SAT 98
--- NOTE | 2020-12-19 15:27 | ED.GENADULT ---
HPI - General Adult General Chief complaint: Wound/Laceration Stated complaint: L FOOT BED SORES Time Seen by Provider: 12/19/20 15:27 Source: patient and RN notes reviewed Mode of arrival: ambulatory (with walker) Limitations: no limitations History of Present Illness HPI narrative: 80-year-old female presents with wounds to left ankle, heel, with swelling to left lower extremity for 2.5-3 weeks. Mariam reports sores to LT ankle and heel with increasing redness and swelling for the past 7 days. Elevates leg no other treatment. History of LT ankle wound, swelling, and PAD. No drainage. Mild tenderness. No streaking. Denies fever or chills. Denies nausea, vomiting, and abdominal pain. Tolerating po intake well. Remains active. The patient reports she have not been diagnosed with COVID-19. The patient reports she received 2 Moderna COVID-19 vaccines. The patient reports she is not waiting for the results of a COVID-19 lab test. The patient reports she do not have weakness or fatigue. The patient reports she do not have a new or worsening cough or shortness of breath. Denies chest pain. The patient reports she do not have any rhinorrhea, congestion, sore throat, loss of taste or smell, and diarrhea. Denies recent traveling. Denies concerns for COVID-19 or exposures been home with limited outdoor exposure except for essential household needs and return home. At this time, patient is not suspected of having COVID-19. Some parts of this dictation were generated by voice recognition software and may contain typographical and/or grammatical inaccuracies. Related Data Home Medications Medication Instructions Recorded Confirmed morphine 15 mg tablet,oral ONLY 15 mg PO Q8H tablet 10/20/19 12/21/20 (not feeding tubes) Allergies Allergy/AdvReac Type Severity Reaction Status Date / Time metoclopramide Allergy Severe TONGUE Verified 12/21/20 15:07 SWELLING Penicillins Allergy Mild Pruritic Verified 12/21/20 15:07 rash codeine Allergy Unknown Unknown Verified 12/21/20 15:07 duloxetine Allergy Unknown Unknown Verified 12/21/20 15:07 ibuprofen Allergy Unknown Unknown Verified 12/21/20 15:07 meperidine Allergy Unknown Unknown Verified 12/21/20 15:07 rosuvastatin Allergy Unknown Unknown Verified 12/21/20 15:07 Sulfa (Sulfonamide Allergy Unknown Unknown Verified 12/21/20 15:07 Antibiotics) sulfanilamide Allergy Unknown unknown Verified 12/21/20 15:07 Review of Systems Review of Systems: Narrative: CONSTITUTIONAL: Denies fever, chills, sweats. EYES: Denies visual changes, redness, discharge. ENT: Denies rhinorrhea, congestion, sore throat, otalgia. CARDIOVASCULAR: Denies chest pain, palpitations, edema. RESPIRATORY: Denies dyspnea, wheezing, cough. GASTROINTESTINAL: Denies abdominal pain, nausea, vomiting, diarrhea. GENITOURINARY: Denies dysuria, hematuria, abnormal discharge. SKIN: Complains of wound to LT ankle and heel with swelling to LT lower extremity, erythema, and tenderness. Denies drainage. MUSCULOSKELETAL: Denies acute back pain, joint pain, or myalgia. NEUROLOGIC: Denies numbness or focal weakness. PSYCHIATRIC: Denies anxiety or depression. All other systems reviewed are negative, except as documented in HPI and below. 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
== END 2020-12-19 16:32 | disposition home or self-care (01) ==
PROVIDERS: Emergency Provider Nurse Practitioner Family; PCP Family Medicine
DX: L03.116 Cellulitis of left lower limb (principal); S91.302A Unspecified open wound, left foot, initial encounter; X58.XXXA Exposure to other specified factors, initial encounter; I48.91 Unspecified atrial fibrillation; J44.9 Chronic obstructive pulmonary disease, unspecified; E78.5 Hyperlipidemia, unspecified; G40.909 Epilepsy, unspecified, not intractable, without status epilepticus; I10 Essential (primary) hypertension; E11.51 Type 2 diabetes mellitus with diabetic peripheral angiopathy without gangrene; Z86.73 Personal history of transient ischemic attack (TIA), and cerebral infarction without residual deficits
CPT/HCPCS: 73610; 73630; 99213; G0463

== ENCOUNTER 2020-12-27 13:19 | Inpatient (IN) | payer MEDICARE, SELFPAY ==
[2020-12-27] VITALS (15 sets, daily range): BP systolic 141–180; BP diastolic 53–102; PULSE 58–84; RESP 16–22; TEMP 36.3–36.6; O2SAT 93–96; BMI 16.5
--- NOTE | ~2020-12-27 | US_ITS ---
EXAMINATION: US venous doppler [facility] DATE: 12/27/2020 14:21 INDICATION: Left lower limb swelling. TECHNIQUE: Grayscale ultrasound images without and with compression and Doppler ultrasound images of the left lower extremity veins were obtained. COMPARISON: Ultrasound 02/15/2015 FINDINGS: The visualized portions of left common femoral vein, profunda (deep) femoral vein, femoral vein, popl iteal vein, peroneal veins, posterior tibial veins, and greater saphenous vein outflow are patent. IMPRESSION: 1. No deep venous thrombosis. Reviewed, dictated and finalized at location A.
--- NOTE | ~2020-12-27 | XR_ITS ---
EXAMINATION: XR chest 1V portable DATE: 12/27/2020 14:17 INDICATION: Shortness of breath. TECHNIQUE: A single frontal view of the chest was obtained. COMPARISON: Chest 2 views 11/28/2020, chest CT 11/09/2020, chest CT 08/21/17 FINDINGS: There are lucencies in the lungs, consistent with emphysema. There are chronic mild airspac e opacities in right lower lung zone and left mid and lower lung zones. No pleural effusion or pneumo thorax. The heart size is normal. There are changes of vertebroplasty in lumbar spine. IMPRESSION: 1. Emphysema. 2. Chronic mild airspace opacities in right lower lung zone and left mid and lower lung zones, likely granulomatous disease. Reviewed, dictated and finalized at location A. IMPRESSION: 1. Emphysema. 2. Chronic mild airspace opacities in right lower lung zone and left mid and lo wer lung zones, likely granulomatous disease.
--- NOTE | ~2020-12-27 | XR_ITS ---
EXAMINATION: XR ankle LT min 3V DATE: 12/27/2020 14:18 INDICATION: Left ankle swelling TECHNIQUE: Anteroposterior, lateral, mortise, and additional oblique view of the ankle were obtained. COMPARISON: 12/19/2020 FINDINGS: Bone alignment is normal. There is no fracture. There soft tissue swelling surrounding the ankle persists but has improved. There is a questionable persistent soft tissue ulceration near the l ateral malleolus. IMPRESSION: 1. Persistent but improved soft tissue swelling surrounding the ankle without evidence of acute osseo us abnormality. Reviewed, dictated and finalized at location [facility]. IMPRESSION: 1. Persistent but improved soft tissue swelling surrounding the ankle without e vidence of acute osseous abnormality.
--- NOTE | ~2020-12-27 | CT_ITS ---
EXAMINATION: CT abdomen pelvis wo con DATE: 12/27/2020 18:10 INDICATION: Kidney stone TECHNIQUE: Computed tomography (CT) of the abdomen and pelvis was performed without intravenous contr ast. Automated exposure control and iterative reconstruction technique were employed. Exam dose: 167 .34 mGy-cm total exam DLP. COMPARISON: 11/09/2020 CT chest abdomen pelvis with IV contrast material FINDINGS: Emphysematous changes and scarring in the lung bases. Old pulmonary granulomatous disease i ncluding calcified right lower lobe pulmonary granulomas. No hepatic, splenic, pancreatic, adrenal space-occupying mass lesion is evident on this limited nonco ntrast examination. Approximately 1.3 cm left renal cyst. Smaller left renal cysts were demonstrated to better advantage on the CT examination with IV contrast material. No right renal mass lesion is evident. No urinary tract calculus or hydroureteronephrosis is evident. The urinary bladder and pelvic structures are extensively obscured by prominent streak artifact from bilateral hip hardware, including right total hip arthroplasty and left compression screw and gamma n ail.. There are numerous diverticula of the sigmoid and to a lesser extent descending colon; no CT evidence of diverticulitis. No bowel obstruction is evident. There is extensive calcification of the abdominal aorta but no aneurysm. No intraperitoneal or retroperitoneal or pelvic mass lesion or adenopathy or ascites. Stable focal soft tissue thickening with some calcification along the left lower anterior abdominal w all, unchanged since 11/09/2020. Diffuse osteopenia. Compression fracture and vertebroplasty at L1 again noted. Diffuse osteopenia. Grade 1 anterolisthesi s and prominent degenerative disease at L2-3 and severe degenerative disc disease at L3-4, L4-5, L5-S 1. Transitional fifth lumbar vertebra with sacralization pseudoarthrosis on the left. No suspicious osteolytic or osteoblastic lesions. IMPRESSION: No urinary tract stones or hydronephrosis are evident Left renal cysts Emphysema and scarring in the lower lung zones Diverticulosis of the left colon; no CT evidence of diverticulitis Reviewed, dictated and finalized at [facility]. Reviewed, dictated and finalized at location A.
--- NOTE | 2020-12-27 13:20 | ECG_ITS ---
Measurements Intervals [place] Rate: 58 P: 87 NC: 170 QRS: -23 QRSD: 93 T: 37 QT: 468 QTc: 461 Interpretive Statements SINUS BRADYCARDIA PEAKED T WAVEDS- CONSIDER HYPERKALEMIA OR ISCHEMIA BASELINE ARTIFACT- I, II, III, AVR, AVL, AVF, V1-V6 ABNORMAL ECG Electronically Signed On 12-27-2020 13:51:51 CDT by Buck Friend D.O.
--- NOTE | 2020-12-27 13:29 | ED.GENADULT ---
HPI - General Adult General Chief complaint: Upper Respiratory Infection Stated complaint: DIFFICULTY BREATHING Source: patient, EMS and old records reviewed Mode of arrival: EMS Limitations: no limitations History of Present Illness HPI narrative: Patient is a 80-year-old female who presents to emergency department noting cough productive of clear phlegm shortness of breath and dyspnea over the last 3 days patient had recent similar occurrence and was admitted for COPD exacerbation and pneumonia. . Patient also notes that she has developed a wound to the lateral aspect of the left ankle and just finished her last dose of doxycycline today which was prescribed by urgent care. Patient notes fatigue. Patient denies any fever chills nausea vomiting. Patient denies any current tobacco abuse or secondhand exposure. Patient has been using her breathing nebulizer and inhaler with minimal improvement. Patient had a breathing treatment in route with some improvement. Patient denies chest pain Related Data Home Medications Medication Instructions Recorded Confirmed morphine 15 mg tablet,oral ONLY 15 mg PO Q8H tablet 10/20/19 12/21/20 (not feeding tubes) Allergies Allergy/AdvReac Type Severity Reaction Status Date / Time metoclopramide Allergy Severe TONGUE Verified 12/21/20 15:07 SWELLING Penicillins Allergy Mild Pruritic Verified 12/21/20 15:07 rash codeine Allergy Unknown Unknown Verified 12/21/20 15:07 duloxetine Allergy Unknown Unknown Verified 12/21/20 15:07 ibuprofen Allergy Unknown Unknown Verified 12/21/20 15:07 meperidine Allergy Unknown Unknown Verified 12/21/20 15:07 rosuvastatin Allergy Unknown Unknown Verified 12/21/20 15:07 Sulfa (Sulfonamide Allergy Unknown Unknown Verified 12/21/20 15:07 Antibiotics) sulfanilamide Allergy Unknown unknown Verified 12/21/20 15:07 Review of Systems Review of Systems: All systems reviewed & are unremarkable except as noted in HPI and below PMFSH Past Medical History Medical History A-fib COPD (chronic obstructive pulmonary disease) Dyslipidemia 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) Essential hypertension History of cerebrovascular accident with current residual effects Multiple lung nodules Non-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 Other osteoporosis without current pathological fracture Other specified depressive episodes Peripheral artery disease Personal history of (healed) traumatic fracture Post traumatic stress disorder (PTSD) Post-traumatic stress disorder, chronic Presence of pancreatic duct stent (~1995) Primary insomnia Recurrent major depressive disorder, 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 Unspecified chronic gastritis without bleeding Upper respiratory infection, acute Surgical History Surgical History H/O: hysterectomy (~1970) Removal of tumors, cysts and adhesions History of angioplasty of peripheral vessel 01/31: stent left pop/SFA History of appendectomy (~1962) History of cholecystectomy (~1962) History of hip replacement 2017 - Right History of laparoscopy 1997 - for adhesionolysis History of laparotomy 1966, 1968 - tumor excision 1972 - hysterectomy History of lumbosacral spine surgery 1977, 1978, 1992, 1993, Hx of sinus surgery 1984, 1985 Family History Family History Father Hypertension Cerebrovascular accident Family history of diabetes mellitus in first degree relative Family history of coronary artery disease Patient's father is Mother Hypertension Cerebrovascular accident Family history of coronary artery disease Patient's mother is Sibling Hypertension Family history of coronary artery disease Grandpar
--- NOTE | 2020-12-27 13:35 | PC.NURSE ---
Respiratory at bedside
--- NOTE | 2020-12-27 13:45 | PC.NURSE ---
Radiology at bedside
[2020-12-27 13:47] LABS: Alveolar/Arterial O2 Gradient 35.9 mmHg; Base Excess ABG 0.4 mEq/l (+/-2.0); Fractional Inspired Oxygen 21 %; HCO3 ABG 25.2 mEq/l (22.0-26.0); Oxygen Content ABG 14.9 %vol (16.0-22.0); Oxygen Saturation ABG 92.6 % (95.0-100.0); Oxyhemoglobin 89.6 % THb (90.0-100.0); PCO2 ABG 41.4 mmHg (35.0-45.0); PO2 ABG 64.3 mmHg (80.0-100.0); PO2 FiO2 Ratio Arterial Blood 3.06 %; Total Hemoglobin 11.8 g/dL (12.0-18.0); pH ABG 7.403 (7.350-7.450)
[2020-12-27 13:48] LABS: Device ROOM AIR; Modified Allen's Test Pass; Site Drawn RIGHT RADIAL
--- NOTE | 2020-12-27 13:55 | PC.NURSE ---
Pt taken to US
--- NOTE | 2020-12-27 14:15 | PC.NURSE ---
Pt returned from US
[2020-12-27 14:46] LABS: Add Urine Microscopic? YES; Appearance Urine Clear (Clear); Bilirubin Urine Negative (Negative); Blood Urine Negative (Negative); Color Urine Yellow (Yellow); Glucose Urine UA Negative (Negative); Ketones Urine Negative (Negative); Leukocyte Esterase Ur Negative LEU/UL (Negative); Nitrate Urine Negative (Negative); Protein Urine 1+ mg/dL (Negative); RBC Urine 0-2 /hpf (0-2); Specific Grav Ur 1.012 (1.001-1.035); Urobilinogen Urine Negative mg/dL (<2.0); WBC Urine 0-3 /hpf
[2020-12-27 15:13] LABS: Basophils Percent Auto 0.6 % (0.2-1.2); Eosinophils Absolute Auto 0.1 K/mm3 (0-0.3); Eosinophils Percent Auto 1.7 % (0-4.4); Hematocrit 39.1 % (37.0-47.0); Hemoglobin 11.8 g/dL (12.0-15.0); Immature Granulocyte Absolute 0.02 K/mm3 (0.00-0.031); Immature Granulocyte Percent A 0.3 % (0-0.5); Lymphocytes Absolute Auto 1.29 K/mm3 (0.9-3.2); Lymphocytes Percent Auto 17.9 % (18.3-44.2); Mean Corpuscular HGB Conc 30.2 g/dl (32-36); Mean Corpuscular Hemoglobin 24.5 pg (26-34); Mean Corpuscular Volume 81.3 fl (80-100); Mean Platelet Volume 9.4 fl (7.4-10.4); Monocytes Absolute Auto 0.4 K/mm3 (0.1-0.6); Neutrophils Absolute Auto 5.3 K/mm3 (1.3-6.7); Neutrophils Percent Auto 73.5 % (45.5-73.1); Platelet Count Result 377 k/mm3 (150-375); Red Blood Count 4.81 M/mm3 (4.2-5.4); Red Cell Distribution Width 21.9 % (11.5-14.5); White Blood Count 7.2 K/mm3 (4.5-10.0)
[2020-12-27 15:23] LABS: Alanine Aminotransferase 19 U/L (4-35); Albumin Level 3.9 g/dL (3.5-5.1); Alkaline Phosphatase 139 U/L (38-126); Anion Gap 6 mmol/L (8-16); Aspartate Amino Transferase 34 U/L (14-36); Bilirubin,Total 0.3 mg/dL (0.2-1.3); Blood Urea Nitrogen 17 mg/dL (7-17); Calcium 8.6 mg/dL (8.4-10.2); Carbon Dioxide 27 mmol/L (22-30); Chloride 105 mmol/L (98-107); Estimated CRCL calculation 40 ml/min; Estimated Glomerular Filt Rate > 60; Glucose 84 mg/dL (65-105); Magnesium 1.7 mg/dL (1.6-2.3); Potassium 4.3 mmol/L (3.4-5.0); Sodium 138 mmol/L (137-145)
[2020-12-27 15:25] LABS: Partial Thromboplastin Time 38.2 SECONDS (22.3-36.8); Prothrombin Time 14.1 Seconds (11.1-14.7)
[2020-12-27 15:32] LABS: NT Pro B Type Natriuretic Pept 9050 PG/ML (5-100)
[2020-12-27 16:03] LABS: Lactic Acid Reflex 0.7 mmol/L (0.7-2.1)
[2020-12-27] MEDS: methylPREDNISolone SOD SUCC 125 MG VIAL 80 MG IV PUSH (16:20)
--- NOTE | 2020-12-27 16:30 | PC.NURSE ---
Pt states she did not bring her medication list with her. Pt unable to verify medication dosages at this time.
--- NOTE | 2020-12-27 17:20 | PC.NURSE ---
Report given to LUNA Boateng
--- NOTE | 2020-12-27 17:48 | PC.NURSE ---
Food tray ordered for pt.
--- NOTE | 2020-12-27 18:18 | ADMGEN ---
This patient, Mariam Pérez, was admitted to [facility] Surg Room 329-01 @ 1815. Patient/family oriented to hospital policies and general routines including ID bracelet, bed and alarms, visiting hours, pain management, procedures, bathroom and other care routines, personal items, smoking policy, room service/diet, and visiting hours. Information on how to activate the Rapid Response Team has been discussed. Patient/Family are encouraged to report perceived risks to care and to ask questions if they do not understand what they are told or what they should do.
[2020-12-27 18:36] LABS: Glucose Point of Care 102 (65-105)
[2020-12-27] MEDS: LACTATED RINGERS 1,000 ML 75 ML IV CONT (18:48)
[2020-12-27] MEDS: ALBUTEROL SULFATE NEB 2.5 MG/0.5 ML INH 5 MG INHALATION (21:12)
[2020-12-27] MEDS: IPRATROPIUM BR 0.02% INH SOLN 0.5 MG/2.5 ML VIAL INHALATION (21:12)
[2020-12-27] MEDS: FAMOTIDINE 20 MG/2 ML VIAL IV PUSH (22:42)
--- NOTE | 2020-12-27 23:51 | PM.IMHP ---
H&P: HPI History of Present Illness Date/Time: 12/27/20 23:51 this is a 80-year-old female patient who has a history of COPD. She also has a chronic wound to her left ankle. The patient came to the emergency room with a productive cough of clear sputum and dyspnea on exertion for the last 3 days. The patient stated that she quit smoking 1 year ago. She also has a lateral ankle wound that she was on doxycycline for the was prescribed an urgent care. The patient states she believes a took a wound culture at the time because a lady he took a long Q-tip and swollen around inside of that wound. The patient denies any fever chills. Patient has been using her nebulizer machine at home with minimal improvement. The patient had a breathing treatment EN route with some improvement. No chest pain or palpitations. She is afebrile. Heart rates in the 50s and 60s. Blood pressure was elevated to 161/60. Her white count was normal. Influenza was negative. BNP 9050 the left foot is swollen and a venous Doppler was performed it was read as no deep vein thrombosis. Ankle x-ray persistent but improved soft tissue swelling surrounding the ankle without evidence of acute osseous abnormality. The left ankle has green drainage. Chest x-ray was read as emphysema chronic mild airspace opacities and right lower lung zone and left mid and lower lung zones likely granulomatosis disease. On Primaxin and vancomycin. She was also started on Solu-Medrol. The patient has chronic back pain is on chronic pain medication and she is requesting her pain medications. Patient is being admitted to observation on the date of service of 12/27/2020. Chief Complaint: Shortness of breath Review of Systems Review of Systems: All systems reviewed & are unremarkable except as noted in HPI and below Constitutional: Constitutional: Reports as per HPI and Reports no additional constitutional complaints Eyes: Eyes: Reports as per HPI and Reports no additional eye complaints ENT: Reports system reviewed and no additional complaints, except as documented and Reports Normal hearing present Cardiovascular: Cardiovascular: Reports no additional cardiovascular complaints Respiratory: Respiratory: Reports no additional respiratory complaints and Reports no additional respiratory complaints Gastrointestinal: Gastrointestinal: Reports as per HPI and Reports no additional gastrointestinal complaints Musculoskeletal: Musculoskeletal: Reports no additional musculoskeletal complaints Integumentary/Breasts: Skin/Breast: Reports system reviewed and no additional complaints, except as docu and Reports as per HPI Neurologic: Reports system reviewed and no additional complaints, except as documented, Reports as per HPI and Reports Normal hearing present Psychiatric: Psychiatric: Reports no additional psychiatric complaints and Reports as per HPI Endocrine: Endocrine: Reports no additional endocrine complaints Hematologic/Lymphatic: Hematologic/Lymphatic: Reports no additional hematologic/lymphatic complaints Allergic/Immunologic: Allergic/Immunologic: Reports no additional allergic/immunologic complaints PMFSH Past Medical History Medical History A-fib COPD (chronic obstructive pulmonary disease) Dyslipidemia 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) Essential hypertension History of cerebrovascular accident with current residual effects Multiple lung nodules Non-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
[2020-12-28] VITALS (14 sets, daily range): BP systolic 132–168; BP diastolic 48–83; PULSE 57–72; RESP 16–20; TEMP 36.4–36.6; O2SAT 92–98; BMI 16.5
[2020-12-28] MEDS: GABAPENTIN 300 MG CAPSULE BY MOUTH ×5 (00:45→20:22)
[2020-12-28] MEDS: levETIRAcetam 500 MG TABLET BY MOUTH ×3 (00:45→20:22)
[2020-12-28] MEDS: MORPHINE SULFATE (*CRX) 15 MG TABCR PO ×2 (00:52→04:57)
[2020-12-28] MEDS: methylPREDNISolone SOD SUCC 40 MG VIAL IV PUSH ×4 (01:34→18:54)
[2020-12-28 01:48] LABS: Glucose Point of Care 172 (65-105)
[2020-12-28] MEDS: ALBUTEROL SULFATE NEB 2.5 MG/0.5 ML INH 5 MG INHALATION ×4 (02:41→22:15)
[2020-12-28] MEDS: IPRATROPIUM BR 0.02% INH SOLN 0.5 MG/2.5 ML VIAL INHALATION ×4 (02:42→22:15)
[2020-12-28 06:24] LABS: Basophils Percent Auto 0.2 % (0.2-1.2); Hematocrit 36.9 % (37.0-47.0); Hemoglobin 11.8 g/dL (12.0-15.0); Immature Granulocyte Absolute 0.02 K/mm3 (0.00-0.031); Immature Granulocyte Percent A 0.4 % (0-0.5); Lymphocytes Percent Auto 10.2 % (18.3-44.2); Mean Corpuscular Hemoglobin 25.2 pg (26-34); Mean Corpuscular Volume 78.7 fl (80-100); Mean Platelet Volume 9.7 fl (7.4-10.4); Monocytes Percent Auto 0.6 % (2.6-8.5); Neutrophils Absolute Auto 4.3 K/mm3 (1.3-6.7); Neutrophils Percent Auto 88.6 % (45.5-73.1); Platelet Count Result 396 k/mm3 (150-375); Red Blood Count 4.69 M/mm3 (4.2-5.4); Red Cell Distribution Width 21.5 % (11.5-14.5); White Blood Count 4.9 K/mm3 (4.5-10.0)
[2020-12-28 06:48] LABS: Anion Gap 4 mmol/L (8-16); Blood Urea Nitrogen 13 mg/dL (7-17); Calcium 8.3 mg/dL (8.4-10.2); Carbon Dioxide 27 mmol/L (22-30); Chloride 105 mmol/L (98-107); Estimated CRCL calculation 54 ml/min; Estimated Glomerular Filt Rate > 60; Glucose 151 mg/dL (65-105); Sodium 136 mmol/L (137-145)
[2020-12-28 08:14] LABS: Glucose Point of Care 129 (65-105)
[2020-12-28] MEDS: APIXABAN 2.5 MG TABLET PO ×2 (08:51→17:08)
[2020-12-28] MEDS: FERROUS SULFATE 324 MG TABLET PO ×2 (08:51→17:07)
[2020-12-28] MEDS: metFORMIN HCL 500 MG TABLET PO ×2 (08:51→17:07)
--- NOTE | 2020-12-28 10:00 | PC.NURSE ---
BP 132/48, HR 62. Attempted to contact provider and left a message to return my call.
[2020-12-28] MEDS: METOPROLOL SUCCINATE EXT REL 50 MG TABCR BY MOUTH (10:07)
[2020-12-28] MEDS: AMIODARONE HCL 200 MG TABLET BY MOUTH (10:08)
[2020-12-28] MEDS: FAMOTIDINE 20 MG/2 ML VIAL IV PUSH ×2 (10:08→20:22)
[2020-12-28 11:41] LABS: Glucose Point of Care 150 (65-105)
[2020-12-28] MEDS: ONDANSETRON INJ 4 MG/2 ML VIAL IV PUSH (14:03)
[2020-12-28] MEDS: SILVERGEL (ELTA) 45 ML 1 APPLIC TOPICAL (14:08)
--- NOTE | 2020-12-28 14:35 | PM.IMPN ---
Progress Note: A&P Assessment and Plan (1) Acute exacerbation of chronic obstructive pulmonary disease: Code(s): J44.1 - Chronic obstructive pulmonary disease with (acute) exacerbation Status: Acute Assessment and Plan: Diffuse wheezing noted on exam. Emphysema noted on CXR. She is maintaining adequate O2 saturations on room air. Continue IV Solu-Medrol q.6 hours with taper Albuterol and Atrovent nebs Q [address] evaluation Continue home Symbicort Supportive care to include expectorants, incentive spirometry, and PEP therapy (2) Diabetic foot ulcer: Code(s): E11.621 - Type 2 diabetes mellitus with foot ulcer; L97.509 - Non-pressure chronic ulcer of other part of unspecified foot with unspecified severity Status: Acute Assessment and Plan: Patient has a small, healing diabetic foot ulcer on left lateral malleolus. There is no signs or symptoms to suggest infection at this time. No purulence or drainage. She was evaluated at urgent care for this wound on 12/19/2020 with negative foot and ankle x-rays. She completed a course of doxycycline on 12/27. On 12/27 showed persistent but improved soft tissue swelling around the ankle with no osseous abnormality Blood cultures pending Wound culture pending Continue IV vancomycin and Primaxin at this time. Plan to discontinue if preliminary blood cultures and wound cultures are negative. Appreciate wound care evaluation. Continue daily silver gel and dressing. Monitor clinically (3) Type 2 diabetes mellitus with other circulatory complications: Code(s): E11.59 - Type 2 diabetes mellitus with other circulatory complications Status: Acute Assessment and Plan: Last A1c 10/13/2020 was 5.7. Blood sugars reviewed have been fairly well controlled. Last blood sugar 150. Accu-Cheks, sliding scale insulin, and hypoglycemic protocol Continue home metformin Check A1c Tight glycemic control is imperative for wound healing (4) A-fib: Qualifiers: Atrial fibrillation type: unspecified Qualified Code(s): I48.91 - Unspecified atrial fibrillation Code(s): I48.91 - Unspecified atrial fibrillation Status: Chronic Assessment and Plan: Rate is controlled. She is asymptomatic. Continue Eliquis and amiodarone (5) Protein calorie malnutrition: Code(s): E46 - Unspecified protein-calorie malnutrition Status: Acute Assessment and Plan: Patient is frail and malnourished. BMI is 16.6. She reports poor p.o. intake. Protein and albumin levels are within normal limits on CMP. Electrolytes are stable. Continue dietary supplements TID. Encourage p.o. intake Appreciate RD evaluation (6) Elevated blood pressure reading: Code(s): R03.0 - Elevated blood-pressure reading, without diagnosis of hypertension Status: Acute Assessment and Plan: Blood pressure reviewed and is elevated above target, mostly in the 160s-170 systolic. May be elevated due to pain. It is noted that she also had an elevated blood pressure reading at her visit to urgent care and was instructed to follow-up with PCP. Suspect patient has underlying essential hypertension. Last BP 168/50 Monitor BP daily and follow trends Will likely initiate her on an antihypertensive agent if BP remains elevated tomorrow Initiate p.r.n. hydralazine for SBP >170 Subjective Date/time seen: 12/28/20 14:35 Interval history: Date of service: 12/28/2020 Marima Pérez is a 80-year-old female with a history of COPD, atrial fibrillation, hyperlipidemia, CVA, osteoporosis, [id number] type 2 diabetes mellitus, and several other comorbidities who is seen in follow-up for COPD exacerbation. She is feeling better today. Her shortness of breath has improved significantly, although she still endorses mild shortness of breath at rest and dyspnea with exertion. She no longer fe
[2020-12-28 16:10] LABS: Glucose Point of Care 113 (65-105)
[2020-12-28] MEDS: guaiFENesin 12 HR 600 MG TABCR PO (20:22)
[2020-12-29] VITALS (13 sets, daily range): BP systolic 145–162; BP diastolic 54–60; PULSE 60–76; RESP 16–20; TEMP 36.3–36.9; O2SAT 94–97
[2020-12-29] MEDS: methylPREDNISolone SOD SUCC 40 MG VIAL IV PUSH ×4 (00:05→20:18)
[2020-12-29] MEDS: HYDROcodone/acetaminophen (*CRX) 5-325 MG TABLET 1 TAB PO ×2 (02:32→08:40)
[2020-12-29] MEDS: ACETAMINOPHEN 325 MG TABLET 650 MG PO ×3 (04:01→20:15)
[2020-12-29 06:29] LABS: Hematocrit 34.2 % (37.0-47.0); Hemoglobin 10.5 g/dL (12.0-15.0); Mean Corpuscular HGB Conc 30.7 g/dl (32-36); Mean Corpuscular Hemoglobin 24.6 pg (26-34); Mean Corpuscular Volume 80.3 fl (80-100); Mean Platelet Volume 9.3 fl (7.4-10.4); Platelet Count Result 343 k/mm3 (150-375); Red Blood Count 4.26 M/mm3 (4.2-5.4); Red Cell Distribution Width 21.7 % (11.5-14.5); White Blood Count 12.5 K/mm3 (4.5-10.0)
[2020-12-29 06:46] LABS: Anion Gap 5 mmol/L (8-16); Blood Urea Nitrogen 16 mg/dL (7-17); CRP < 0.5 mg/dL (<1.0); Calcium 7.9 mg/dL (8.4-10.2); Carbon Dioxide 25 mmol/L (22-30); Chloride 106 mmol/L (98-107); Estimated CRCL calculation 46 ml/min; Estimated Glomerular Filt Rate > 60; Glucose 128 mg/dL (65-105); Magnesium 1.8 mg/dL (1.6-2.3); Potassium 4.3 mmol/L (3.4-5.0); Sodium 136 mmol/L (137-145)
[2020-12-29 06:52] LABS: Hemoglobin A1C 5.5 % (<5.7)
[2020-12-29 08:26] LABS: Glucose Point of Care 129 (65-105)
[2020-12-29] MEDS: APIXABAN 2.5 MG TABLET PO ×2 (08:41→17:09)
[2020-12-29] MEDS: guaiFENesin 12 HR 600 MG TABCR PO ×2 (08:41→20:16)
[2020-12-29] MEDS: AMIODARONE HCL 200 MG TABLET BY MOUTH (08:41)
[2020-12-29] MEDS: levETIRAcetam 500 MG TABLET BY MOUTH ×2 (08:42→20:16)
[2020-12-29] MEDS: metFORMIN HCL 500 MG TABLET PO ×2 (08:42→17:10)
[2020-12-29] MEDS: FAMOTIDINE 20 MG/2 ML VIAL IV PUSH ×2 (08:42→20:17)
[2020-12-29] MEDS: FERROUS SULFATE 324 MG TABLET PO ×2 (08:42→17:09)
[2020-12-29] MEDS: GABAPENTIN 300 MG CAPSULE BY MOUTH ×4 (08:42→20:16)
[2020-12-29] MEDS: METOPROLOL SUCCINATE EXT REL 50 MG TABCR BY MOUTH (08:42)
[2020-12-29] MEDS: SILVERGEL (ELTA) 45 ML 1 APPLIC TOPICAL (08:45)
[2020-12-29] MEDS: ALBUTEROL SULFATE NEB 2.5 MG/0.5 ML INH 5 MG INHALATION ×3 (08:49→19:41)
[2020-12-29] MEDS: IPRATROPIUM BR 0.02% INH SOLN 0.5 MG/2.5 ML VIAL INHALATION ×3 (08:50→19:41)
[2020-12-29 11:59] LABS: Glucose Point of Care 108 (65-105)
--- NOTE | 2020-12-29 14:17 | PM.IMPN ---
Progress Note: A&P Assessment and Plan (1) Acute exacerbation of chronic obstructive pulmonary disease: Code(s): J44.1 - Chronic obstructive pulmonary disease with (acute) exacerbation Status: Acute Assessment and Plan: Diffuse wheezing noted on exam. Emphysema noted on CXR. She is maintaining adequate O2 saturations on room air. Continue IV Solu-Medrol q8 hours with taper Albuterol and Atrovent nebs q6h scheduled Appreciate RT evaluation Continue home Symbicort Supportive care to include expectorants, incentive spirometry, and PEP therapy (2) Diabetic foot ulcer: Code(s): E11.621 - Type 2 diabetes mellitus with foot ulcer; L97.509 - Non-pressure chronic ulcer of other part of unspecified foot with unspecified severity Status: Acute Assessment and Plan: Patient has a small diabetic foot ulcer on left lateral malleolus. Upon my initial eval the wound appeared dry without purulence, drainage, or other signs of infection. Today she has yellowish green purulent discharge. She was evaluated at urgent care for this wound on 12/19/2020 with negative foot and ankle x-rays. She completed a course of doxycycline on 12/27. Ankle x-ray 12/27 showed persistent but improved soft tissue swelling around the ankle with no osseous abnormality Wound culture shows scant growth of Staphylococcus aureus in the aerobic culture. Susceptibility test pending. Await results and tailor antibiotics accordingly. Preliminary blood cultures with no growth to date IV vancomycin and Primaxin discontinued as IV access was lost. Started on PO Levaquin today. Appreciate wound care evaluation. Continue daily silver gel and dressing. (3) Type 2 diabetes mellitus with other circulatory complications: Code(s): E11.59 - Type 2 diabetes mellitus with other circulatory complications Status: Acute Assessment and Plan: A1c is 5.5 (12/29/20). Blood sugars reviewed and have been fairly well controlled. Last blood sugar 108 Accu-Cheks, sliding scale insulin, and hypoglycemic protocol Continue home metformin Tight glycemic control is imperative for wound healing (4) A-fib: Qualifiers: Atrial fibrillation type: unspecified Qualified Code(s): I48.91 - Unspecified atrial fibrillation Code(s): I48.91 - Unspecified atrial fibrillation Status: Chronic Assessment and Plan: Rate is controlled. She is asymptomatic. Continue Eliquis and amiodarone (5) Protein calorie malnutrition: Code(s): E46 - Unspecified protein-calorie malnutrition Status: Acute Assessment and Plan: Patient is frail and malnourished. BMI is 16.6. She reports poor p.o. intake. Protein and albumin levels are within normal limits on CMP. Electrolytes are stable. Continue dietary supplements TID. Encourage p.o. intake Appreciate RD evaluation (6) Elevated blood pressure reading: Code(s): R03.0 - Elevated blood-pressure reading, without diagnosis of hypertension Status: Acute Assessment and Plan: Blood pressure reviewed and is elevated above target, mostly in the 160s-170 systolic. May be elevated due to pain. Improving today. Last BP 145/54. Monitor BP daily and follow trends PRN hydralazine for SBP >170 Subjective Date/time seen: 12/29/20 14:17 Interval history: Date of service: 12/29/2020 Mariam Pérez is a 80-year-old female with a history of COPD, atrial fibrillation, hyperlipidemia, CVA, osteoporosis, [id number] type 2 diabetes mellitus, and several other comorbidities who is seen in follow-up for COPD exacerbation. She is doing okay today. She does complain of a headache behind her eyes that has been ongoing for about 2 days. She thinks this is related to sinus congestion. She feels that her shortness of breath is better and she denies wheezing. She is coughing occasionally but she thinks this is due to postnasal drip.
[2020-12-29 17:04] LABS: Glucose Point of Care 116 (65-105)
[2020-12-29 20:15] LABS: Glucose Point of Care 144 (65-105)
[2020-12-29] MEDS: FLUTICASONE PROPIONATE 0.05% NA SPR 16 GM BTL (*BKC) 1 SPRAY NASAL (20:17)
[2020-12-29] MEDS: MELATONIN 3 MG TABLET PO (23:22)
[2020-12-30] VITALS (16 sets, daily range): BP systolic 150–189; BP diastolic 59–70; PULSE 70–83; RESP 18–20; TEMP 36.6–37.1; O2SAT 96–98
[2020-12-30] MEDS: IPRATROPIUM BR 0.02% INH SOLN 0.5 MG/2.5 ML VIAL INHALATION ×4 (01:35→21:43)
[2020-12-30] MEDS: ALBUTEROL SULFATE NEB 2.5 MG/0.5 ML INH 5 MG INHALATION ×4 (01:35→21:43)
[2020-12-30] MEDS: HYDROcodone/acetaminophen (*CRX) 5-325 MG TABLET 1 TAB PO ×4 (02:10→23:33)
[2020-12-30] MEDS: methylPREDNISolone SOD SUCC 40 MG VIAL IV PUSH ×3 (06:08→20:05)
[2020-12-30 06:28] LABS: Hematocrit 34.9 % (37.0-47.0); Hemoglobin 10.9 g/dL (12.0-15.0); Mean Corpuscular HGB Conc 31.2 g/dl (32-36); Mean Corpuscular Hemoglobin 24.9 pg (26-34); Mean Corpuscular Volume 79.9 fl (80-100); Mean Platelet Volume 9.4 fl (7.4-10.4); Platelet Count Result 357 k/mm3 (150-375); Red Blood Count 4.37 M/mm3 (4.2-5.4); Red Cell Distribution Width 21.9 % (11.5-14.5); White Blood Count 15.8 K/mm3 (4.5-10.0)
[2020-12-30 06:51] LABS: Alanine Aminotransferase 18 U/L (4-35); Albumin Level 3.4 g/dL (3.5-5.1); Alkaline Phosphatase 95 U/L (38-126); Anion Gap 1 mmol/L (8-16); Aspartate Amino Transferase 25 U/L (14-36); Bilirubin,Total 0.1 mg/dL (0.2-1.3); Blood Urea Nitrogen 15 mg/dL (7-17); Calcium 8.2 mg/dL (8.4-10.2); Carbon Dioxide 30 mmol/L (22-30); Chloride 105 mmol/L (98-107); Estimated CRCL calculation 46 ml/min; Estimated Glomerular Filt Rate > 60; Glucose 133 mg/dL (65-105); Potassium 4.2 mmol/L (3.4-5.0); Sodium 136 mmol/L (137-145)
[2020-12-30 08:08] LABS: Glucose Point of Care 141 (65-105)
[2020-12-30] MEDS: GABAPENTIN 300 MG CAPSULE BY MOUTH ×4 (08:26→20:03)
[2020-12-30] MEDS: metFORMIN HCL 500 MG TABLET PO ×2 (08:26→17:02)
[2020-12-30] MEDS: FAMOTIDINE 20 MG/2 ML VIAL IV PUSH ×2 (08:26→20:04)
[2020-12-30] MEDS: METOPROLOL SUCCINATE EXT REL 50 MG TABCR BY MOUTH (08:26)
[2020-12-30] MEDS: FERROUS SULFATE 324 MG TABLET PO ×2 (08:27→17:02)
[2020-12-30] MEDS: levETIRAcetam 500 MG TABLET BY MOUTH ×2 (08:27→20:03)
[2020-12-30] MEDS: AMIODARONE HCL 200 MG TABLET BY MOUTH (08:27)
[2020-12-30] MEDS: LORATADINE 5 MG TABLET PO (08:27)
[2020-12-30] MEDS: FLUTICASONE PROPIONATE 0.05% NA SPR 16 GM BTL (*BKC) 1 SPRAY NASAL ×2 (08:28→20:04)
[2020-12-30] MEDS: guaiFENesin 12 HR 600 MG TABCR PO ×2 (08:28→20:02)
[2020-12-30] MEDS: APIXABAN 2.5 MG TABLET PO ×2 (08:28→17:02)
[2020-12-30] MEDS: SILVERGEL (ELTA) 45 ML 1 APPLIC TOPICAL (08:28)
--- NOTE | 2020-12-30 11:26 | PM.IMPN ---
Progress Note: A&P Assessment and Plan (1) Acute exacerbation of chronic obstructive pulmonary disease: Code(s): J44.1 - Chronic obstructive pulmonary disease with (acute) exacerbation Status: Acute Assessment and Plan: Diffuse wheezing noted on exam. Emphysema noted on CXR. She is maintaining adequate O2 saturations on room air. Continue IV Solu-Medrol q8 hours with taper. Leukocytosis secondary to steroids noted. Albuterol and Atrovent nebs q6h scheduled Do not feel antibiotics are warranted at this time as she is not having sputum production. Appreciate RT evaluation Continue home Symbicort Supportive care to include expectorants, incentive spirometry, and PEP therapy (2) Diabetic foot ulcer: Code(s): E11.621 - Type 2 diabetes mellitus with foot ulcer; L97.509 - Non-pressure chronic ulcer of other part of unspecified foot with unspecified severity Status: Acute Assessment and Plan: Patient has a small diabetic foot ulcer on left lateral malleolus with yellowish green purulent discharge. She was evaluated at urgent care for this wound on 12/19/2020 with negative foot and ankle x-rays. She completed a course of doxycycline on 12/27. Ankle x-ray 12/27 showed persistent but improved soft tissue swelling around the ankle with no osseous abnormality Continue PO Levaquin. Aerobic wound culture shows scant growth of Staphylococcus aureus. Susceptibility test pending. Await results and tailor antibiotics accordingly. Preliminary blood cultures with no growth to date IV vancomycin and Primaxin discontinued on 12/28 as IV access was lost. Appreciate wound care evaluation. Continue daily silver gel and dressing. (3) Type 2 diabetes mellitus with other circulatory complications: Code(s): E11.59 - Type 2 diabetes mellitus with other circulatory complications Status: Acute Assessment and Plan: A1c is 5.5 (12/29/20). Blood sugars reviewed and have been fairly well controlled. Seem to be increasing slightly with steroids. Last blood sugar 141 Accu-Cheks, sliding scale insulin, and hypoglycemic protocol Continue home metformin Tight glycemic control is imperative for wound healing (4) A-fib: Qualifiers: Atrial fibrillation type: unspecified Qualified Code(s): I48.91 - Unspecified atrial fibrillation Code(s): I48.91 - Unspecified atrial fibrillation Status: Chronic Assessment and Plan: Rate is controlled. She is asymptomatic. Continue Eliquis and amiodarone (5) Protein calorie malnutrition: Code(s): E46 - Unspecified protein-calorie malnutrition Status: Acute Assessment and Plan: Patient is frail and malnourished. BMI is 16.6. She reports poor p.o. intake. Protein and albumin levels are slightly decreased. Electrolytes are stable. Continue dietary supplements TID. Encourage p.o. intake Appreciate RD evaluation (6) Elevated blood pressure reading: Code(s): R03.0 - Elevated blood-pressure reading, without diagnosis of hypertension Status: Acute Assessment and Plan: Blood pressure reviewed and is elevated above target, mostly in the 160s-170 systolic. Initially felt to be elevated due to pain, however pain has improved and blood pressure remains persistently elevated. Given persistently elevated readings, will start her on amlodipine 5 mg daily Monitor BP daily and follow trends PRN hydralazine for SBP >170 Subjective Date/time seen: 12/30/20 11:26 Interval history: Date of service: 12/30/2020 Mariam Pérez is a 80-year-old female with a history of COPD, atrial fibrillation, hyperlipidemia, CVA, osteoporosis, [id number] type 2 diabetes mellitus, and several other comorbidities who is seen in follow-up for COPD exacerbation and a left foot wound. She is feeling fairly well today. She still has a headache but thinks that it is improving a bit. She still h
[2020-12-30 12:19] LABS: Glucose Point of Care 129 (65-105)
[2020-12-30 17:23] LABS: Glucose Point of Care 118 (65-105)
[2020-12-30 20:50] LABS: Glucose Point of Care 133 (65-105)
[2020-12-30] MEDS: hydrALAZINE HCL 20 MG/ML VIAL 10 MG IV PUSH (21:00)
[2020-12-31] VITALS (13 sets, daily range): BP systolic 149–185; BP diastolic 51–90; PULSE 68–80; RESP 16–20; TEMP 36.4–36.9; O2SAT 96–98
[2020-12-31] MEDS: methylPREDNISolone SOD SUCC 40 MG VIAL IV PUSH ×2 (05:07→18:14)
[2020-12-31] MEDS: HYDROcodone/acetaminophen (*CRX) 5-325 MG TABLET 1 TAB PO ×3 (05:07→18:12)
[2020-12-31] MEDS: hydrALAZINE HCL 20 MG/ML VIAL 10 MG IV PUSH ×2 (05:08→20:59)
[2020-12-31 06:23] LABS: Hematocrit 37.1 % (37.0-47.0); Hemoglobin 11.6 g/dL (12.0-15.0); Mean Corpuscular HGB Conc 31.3 g/dl (32-36); Mean Corpuscular Hemoglobin 24.8 pg (26-34); Mean Corpuscular Volume 79.4 fl (80-100); Mean Platelet Volume 9.8 fl (7.4-10.4); Platelet Count Result 344 k/mm3 (150-375); Red Blood Count 4.67 M/mm3 (4.2-5.4); Red Cell Distribution Width 22.3 % (11.5-14.5); White Blood Count 12.2 K/mm3 (4.5-10.0)
[2020-12-31 06:37] LABS: Anion Gap 4 mmol/L (8-16); Blood Urea Nitrogen 14 mg/dL (7-17); Calcium 8.6 mg/dL (8.4-10.2); Carbon Dioxide 28 mmol/L (22-30); Chloride 103 mmol/L (98-107); Estimated CRCL calculation 54 ml/min; Estimated Glomerular Filt Rate > 60; Glucose 114 mg/dL (65-105); Potassium 4.2 mmol/L (3.4-5.0); Sodium 135 mmol/L (137-145)
[2020-12-31] MEDS: LORATADINE 5 MG TABLET PO (08:03)
[2020-12-31] MEDS: metFORMIN HCL 500 MG TABLET PO ×2 (08:03→18:11)
[2020-12-31] MEDS: FLUTICASONE PROPIONATE 0.05% NA SPR 16 GM BTL (*BKC) 1 SPRAY NASAL ×2 (08:03→20:08)
[2020-12-31] MEDS: guaiFENesin 12 HR 600 MG TABCR PO ×2 (08:04→20:08)
[2020-12-31] MEDS: GABAPENTIN 300 MG CAPSULE BY MOUTH ×4 (08:04→20:08)
[2020-12-31] MEDS: levETIRAcetam 500 MG TABLET BY MOUTH ×2 (08:05→20:08)
[2020-12-31] MEDS: METOPROLOL SUCCINATE EXT REL 50 MG TABCR BY MOUTH (08:05)
[2020-12-31] MEDS: AMIODARONE HCL 200 MG TABLET BY MOUTH (08:06)
[2020-12-31] MEDS: amLODIPine BESYLATE 5 MG TABLET PO (08:06)
[2020-12-31] MEDS: APIXABAN 2.5 MG TABLET PO ×2 (08:06→18:12)
[2020-12-31] MEDS: SILVERGEL (ELTA) 45 ML 1 APPLIC TOPICAL (08:07)
[2020-12-31] MEDS: FAMOTIDINE 20 MG/2 ML VIAL IV PUSH ×2 (08:07→20:07)
[2020-12-31 08:32] LABS: Glucose Point of Care 124 (65-105)
[2020-12-31] MEDS: ALBUTEROL SULFATE NEB 2.5 MG/0.5 ML INH 5 MG INHALATION ×3 (08:48→21:01)
[2020-12-31] MEDS: IPRATROPIUM BR 0.02% INH SOLN 0.5 MG/2.5 ML VIAL INHALATION ×3 (08:48→21:01)
[2020-12-31] MEDS: FERROUS SULFATE 324 MG TABLET PO ×2 (11:10→18:12)
--- NOTE | 2020-12-31 11:54 | PM.IMPN ---
Progress Note: A&P Assessment and Plan (1) Acute exacerbation of chronic obstructive pulmonary disease: Code(s): J44.1 - Chronic obstructive pulmonary disease with (acute) exacerbation Status: Acute Assessment and Plan: Diffuse wheezing noted on exam is slowly improving. Emphysema noted on CXR. She is maintaining adequate O2 saturations on room air. Continue IV Solu-Medrol. Decrease to q12H. Plan to transition to PO prednisone with taper tomorrow if continued improvement. Leukocytosis secondary to steroids noted. Albuterol and Atrovent nebs q6h scheduled Do not feel antibiotics are warranted at this time as she is not having sputum production, however she is on Levaquin for infected foot ulcer. Appreciate RT evaluation Continue home Symbicort Supportive care to include expectorants, incentive spirometry, and PEP therapy (2) Diabetic foot ulcer: Code(s): E11.621 - Type 2 diabetes mellitus with foot ulcer; L97.509 - Non-pressure chronic ulcer of other part of unspecified foot with unspecified severity Status: Acute Assessment and Plan: Patient has a small diabetic foot ulcer on left lateral malleolus with yellowish green purulent discharge. She was evaluated at urgent care for this wound on 12/19/2020 with negative foot and ankle x-rays. She completed a course of doxycycline on 12/27. Ankle x-ray 12/27 showed persistent but improved soft tissue swelling around the ankle with no osseous abnormality Continue PO Levaquin, started on 12/29. Aerobic wound culture shows scant growth of Staphylococcus aureus susceptible to Levaquin. Preliminary blood cultures with no growth to date IV vancomycin and Primaxin discontinued on 12/28 as IV access was lost. Appreciate wound care evaluation. Continue daily silver gel and dressing. She will need ongoing wound care following discharge. (3) Type 2 diabetes mellitus with other circulatory complications: Code(s): E11.59 - Type 2 diabetes mellitus with other circulatory complications Status: Acute Assessment and Plan: A1c is 5.5 (12/29/20). Blood sugars reviewed and have been fairly well controlled, especially given IV steroids. Fasting blood sugar this morning was 114. Accu-Cheks, sliding scale insulin, and hypoglycemic protocol Continue home metformin Tight glycemic control is imperative for wound healing (4) A-fib: Qualifiers: Atrial fibrillation type: unspecified Qualified Code(s): I48.91 - Unspecified atrial fibrillation Code(s): I48.91 - Unspecified atrial fibrillation Status: Chronic Assessment and Plan: Rate is controlled. She is asymptomatic. Continue Eliquis and amiodarone (5) Protein calorie malnutrition: Code(s): E46 - Unspecified protein-calorie malnutrition Status: Acute Assessment and Plan: Patient is frail and malnourished. BMI is 16.6. She reports poor p.o. intake. Protein and albumin levels are slightly decreased. Electrolytes are stable. Continue dietary supplements TID. Encourage p.o. intake Appreciate RD evaluation (6) Elevated blood pressure reading: Code(s): R03.0 - Elevated blood-pressure reading, without diagnosis of hypertension Status: Acute Assessment and Plan: Blood pressure reviewed and is elevated above target, mostly in the 160s-170 systolic. Initially felt to be elevated due to pain, however pain has improved and blood pressure remains persistently elevated. Last BP 185/64. Given persistently elevated readings she was initiated on amlodipine 5 mg daily Monitor BP daily and follow trends PRN hydralazine for SBP >170 Subjective Date/time seen: 12/31/20 11:54 Interval history: Date of service: 12/31/2020 Mariam Pérez is a 80-year-old female with a history of COPD, atrial fibrillation, hyperlipidemia, CVA, osteoporosis, [id number] type 2 diabetes mellitus, and several other re
[2020-12-31 12:13] LABS: Glucose Point of Care 117 (65-105)
[2020-12-31 18:08] LABS: Glucose Point of Care 106 (65-105)
[2020-12-31] MEDS: SACCHAROMYCES BOULARDII 250 MG CAPSULE PO (18:11)
[2020-12-31 19:51] LABS: Glucose Point of Care 111 (65-105)
[2021-01-01] VITALS (7 sets, daily range): BP systolic 146–155; BP diastolic 52–57; PULSE 68–82; RESP 16–20; TEMP 36.7–37.1; O2SAT 98
[2021-01-01] MEDS: HYDROcodone/acetaminophen (*CRX) 5-325 MG TABLET 1 TAB PO ×3 (00:08→12:17)
[2021-01-01] MEDS: ALBUTEROL SULFATE NEB 2.5 MG/0.5 ML INH 5 MG INHALATION ×2 (02:32→07:49)
[2021-01-01] MEDS: IPRATROPIUM BR 0.02% INH SOLN 0.5 MG/2.5 ML VIAL INHALATION ×2 (02:33→07:49)
[2021-01-01] MEDS: methylPREDNISolone SOD SUCC 40 MG VIAL IV PUSH (05:53)
[2021-01-01 06:52] LABS: Anion Gap 3 mmol/L (8-16); Blood Urea Nitrogen 16 mg/dL (7-17); Calcium 8.1 mg/dL (8.4-10.2); Carbon Dioxide 28 mmol/L (22-30); Chloride 102 mmol/L (98-107); Estimated CRCL calculation 46 ml/min; Estimated Glomerular Filt Rate > 60; Glucose 100 mg/dL (65-105); Potassium 4.1 mmol/L (3.4-5.0); Sodium 133 mmol/L (137-145)
[2021-01-01 07:13] LABS: Hemoglobin 11.6 g/dL (12.0-15.0); Mean Corpuscular HGB Conc 31.4 g/dl (32-36); Mean Corpuscular Hemoglobin 24.8 pg (26-34); Mean Corpuscular Volume 79.2 fl (80-100); Mean Platelet Volume 9.6 fl (7.4-10.4); Platelet Count Result 318 k/mm3 (150-375); Red Blood Count 4.67 M/mm3 (4.2-5.4); Red Cell Distribution Width 22.1 % (11.5-14.5)
[2021-01-01] MEDS: AMIODARONE HCL 200 MG TABLET BY MOUTH (08:26)
[2021-01-01] MEDS: FERROUS SULFATE 324 MG TABLET PO (08:26)
[2021-01-01] MEDS: levETIRAcetam 500 MG TABLET BY MOUTH (08:26)
[2021-01-01] MEDS: amLODIPine BESYLATE 5 MG TABLET PO (08:26)
[2021-01-01] MEDS: METOPROLOL SUCCINATE EXT REL 50 MG TABCR BY MOUTH (08:26)
[2021-01-01] MEDS: guaiFENesin 12 HR 600 MG TABCR PO (08:26)
[2021-01-01] MEDS: metFORMIN HCL 500 MG TABLET PO (08:26)
[2021-01-01] MEDS: FAMOTIDINE 20 MG/2 ML VIAL IV PUSH (08:26)
[2021-01-01] MEDS: GABAPENTIN 300 MG CAPSULE BY MOUTH ×2 (08:26→12:18)
[2021-01-01] MEDS: APIXABAN 2.5 MG TABLET PO (08:26)
[2021-01-01] MEDS: SACCHAROMYCES BOULARDII 250 MG CAPSULE PO (08:26)
[2021-01-01] MEDS: FLUTICASONE PROPIONATE 0.05% NA SPR 16 GM BTL (*BKC) 1 SPRAY NASAL (08:27)
[2021-01-01] MEDS: LORATADINE 5 MG TABLET PO (08:27)
[2021-01-01] MEDS: SILVERGEL (ELTA) 45 ML 1 APPLIC TOPICAL (08:27)
[2021-01-01 08:40] LABS: Glucose Point of Care 118 (65-105)
[2021-01-01 12:21] LABS: Glucose Point of Care 110 (65-105)
--- NOTE | 2021-01-01 13:05 | PM.DS ---
DS: Admitting Diagnosis Admitting Diagnosis Admitting Diagnosis: COPD exacerbation, diabetic foot wound DS: Discharge Diagnosis Discharge Diagnosis (1) Acute exacerbation of chronic obstructive pulmonary disease: Code(s): J44.1 - Chronic obstructive pulmonary disease with (acute) exacerbation Status: Acute Assessment and Plan: Diffuse wheezing noted on exam. Emphysema noted on CXR. She was not hypoxic and remained on room air. She was treated with IV Solu-Medrol which was slowly weaned. Her wheezing resolved. She will continue a p.o. prednisone taper as an outpatient. She developed mild leukocytosis secondary to steroids which slowly improved. Supportive care provided including schedule albuterol and Atrovent nebs, expectorants, incentive spirometry, and PEP therapy. Antibiotics not felt to be warranted given lack of sputum production, however she was on Levaquin for infected foot ulcer as below. Continue Symbicort and albuterol at home. (2) Diabetic foot ulcer: Code(s): E11.621 - Type 2 diabetes mellitus with foot ulcer; L97.509 - Non-pressure chronic ulcer of other part of unspecified foot with unspecified severity Status: Acute Assessment and Plan: She has a small diabetic foot ulcer on left lateral malleolus with yellowish green purulent discharge. She was evaluated at urgent care for this wound on 12/19/2020 with negative foot and ankle x-rays. She completed a course of doxycycline on 12/27. Ankle x-ray 12/27 showed persistent but improved soft tissue swelling around the ankle with no osseous abnormality. Wound culture demonstrated scant growth of oxacillin susceptible Staphylococcus aureus. She was started on IV vancomycin and Primaxin which was discontinued on 12/28 given loss of IV access. She was transitioned to p.o. Levaquin which she will continue at home for 10 more days. Probiotic prescribed. Blood cultures negative. She was evaluated by wound care nurse. Silver gel and dressing changes daily. Home health was arranged for follow-up wound care. (3) Type 2 diabetes mellitus with other circulatory complications: Code(s): E11.59 - Type 2 diabetes mellitus with other circulatory complications Status: Acute Assessment and Plan: A1c is 5.5 (12/29/20). Blood sugars reviewed and were fairly well controlled, especially given IV steroids. Covered with sliding scale insulin during stay and home metformin. Tight glycemic control is imperative for wound healing. Educated her on importance of routine glucose monitoring, especially while on steroids (4) A-fib: Qualifiers: Atrial fibrillation type: unspecified Qualified Code(s): I48.91 - Unspecified atrial fibrillation Code(s): I48.91 - Unspecified atrial fibrillation Status: Chronic Assessment and Plan: Rate was controlled. She remained asymptomatic. Continue Eliquis and amiodarone (5) Protein calorie malnutrition: Code(s): E46 - Unspecified protein-calorie malnutrition Status: Acute Assessment and Plan: Patient is frail and malnourished. BMI is 16.6. She reports poor p.o. intake. Protein and albumin levels were slightly decreased. Electrolytes remained stable. Dietary supplements provided and she was seen by RD. Continue dietary supplements at home. Adequate p.o. intake encouraged. (6) Elevated blood pressure reading: Code(s): R03.0 - Elevated blood-pressure reading, without diagnosis of hypertension Status: Acute Assessment and Plan: Blood pressure reviewed and was elevated above target, mostly in the 160s-170 systolic. Initially felt to be elevated due to pain, however remained persistently elevated, therefore initiated her on 5 mg amlodipine daily. Encouraged her to monitor blood pressures at home 3-4 times per week and record for review and further medication adjustment by PCP. DS: Summary Hospital Course Reason for hosp
== END 2021-01-01 16:50 | disposition home health service (06) | DRG 191 ==
LOC: ANHED 16:17 → ANH3MEDSUR 17:17
PROVIDERS: Emergency Medicine Emergency Medical Services; Physician Assistant; Admitting Provider Internal Medicine; Emergency Provider Emergency Medicine; PCP Family Medicine; Visit Provider Internal Medicine
DX: J43.9 Emphysema, unspecified (principal); I48.20 Chronic atrial fibrillation, unspecified; E46 Unspecified protein-calorie malnutrition; Z68.1 Body mass index [BMI] 19.9 or less, adult; E11.621 Type 2 diabetes mellitus with foot ulcer; L97.529 Non-pressure chronic ulcer of other part of left foot with unspecified severity; E11.59 Type 2 diabetes mellitus with other circulatory complications; M81.0 Age-related osteoporosis without current pathological fracture; I69.398 Other sequelae of cerebral infarction; E78.5 Hyperlipidemia, unspecified; I10 Essential (primary) hypertension; M54.5 Low back pain; R56.9 Unspecified convulsions; R91.8 Other nonspecific abnormal finding of lung field; F43.12 Post-traumatic stress disorder, chronic; I73.9 Peripheral vascular disease, unspecified; F17.210 Nicotine dependence, cigarettes, uncomplicated; Z96.641 Presence of right artificial hip joint; Z90.710 Acquired absence of both cervix and uterus; Z95.5 Presence of coronary angioplasty implant and graft; Z90.49 Acquired absence of other specified parts of digestive tract
CPT/HCPCS: 36415; 36600; 51701; 71045; 73610; 74176; 80048; 80053; 81001; 82805; 82948; 83036; 83605; 83735; 83880; 85025; 85027; 85610; 85730; 86140; 87040; 87070; 87075; 87077; 87186; 87205; 87804; 93005; 93971; 94640; 96365; 96366; 96367; 96375; 96376; 99285; A9270; G0378; J0131; J0360; J0743; J2405; J2920; J2930; J3370; J7120

== ENCOUNTER 2021-02-27 21:04 | Observation (INO) | payer MEDICARE, SELFPAY ==
[2021-02-27] VITALS (9 sets, daily range): BP systolic 127–134; BP diastolic 51–74; PULSE 72–80; RESP 11–18; TEMP 36.7; O2SAT 94–100
--- NOTE | ~2021-02-27 | XR_ITS ---
EXAMINATION: XR shoulder RT min 2V DATE: 02/28/2021 13:46 INDICATION: Right upper arm pain with movement TECHNIQUE: AP internally and externally rotated, AP oblique externally rotated and transscapular Y vi ews of the right shoulder were obtained. COMPARISON: None FINDINGS: Normal alignment. No fracture.Glenohumeral and acromioclavicular osteoarthritis. Prominent anterior subacromial spur. Soft tissues are unremarkable. Slice portions of the lungs are clear. Cervical spon dylosis with bilateral severe lower lumbar facet osteoarthritis. IMPRESSION: Mild right acromioclavicular and glenohumeral osteoarthritis. Reviewed, dictated and finalized at location A.
--- NOTE | ~2021-02-27 | XR_ITS ---
EXAMINATION: XR elbow RT 2V DATE: 02/28/2021 13:46 INDICATION: Right upper arm pain with movement TECHNIQUE: Anteroposterior and lateral views of the right elbow were obtained. COMPARISON: None. FINDINGS: Alignment is normal. No fracture or joint effusion. Joint spaces are normal. Small calcified nodule i n the soft tissues at the ulnar side of the midforearm. Soft tissues are otherwise unremarkable. IMPRESSION: 1. No right elbow joint effusion or osseous abnormality. Reviewed, dictated and finalized at location A.
--- NOTE | ~2021-02-27 | CT_ITS ---
EXAMINATION: CTA chest PE protocol DATE: 02/28/2021 00:43 INDICATION: Shortness of breath. Elevated troponin. TECHNIQUE: Computed tomography angiography (CTA) of the chest was performed with 100 mL Omnipaque-350 intravenous contrast timed to evaluate the pulmonary arteries. Coronal maximum intensity projection 3D-reconstructions were created by the technologist. Automated exposure control and iterative reconst ruction technique were employed. Exam dose: 159.16 mGy-cm total exam DLP. COMPARISON: 02/27/[address] portable [address] chest abdomen pelvis FINDINGS: There is diagnostic contrast enhancement of the pulmonary arteries and no evidence of pulmo nary embolism. There is thoracic aortic and coronary artery calcification. No thoracic aortic aneurysm or dissection is evident. Cardiomegaly. No pericardial effusion or pleural effusion. Stable mild bilateral hilar lymph node prominence since . Prominent emphysematous changes of the lungs. There are scattered bilateral spiculated appearing opac ities which appears stable compared to 11/09/2020, reported as stable at that time, consistent with po stinfectious residua considering the long-term stability. No interval pulmonary consolidation or sign ificant new or developing pulmonary opacity is appreciated. Some vertebral body hemangiomas are noted as well as diffuse osteopenia. Status post vertebroplasty a t compression fracture deformity of L1.. IMPRESSION: No evidence of pulmonary embolism Prominent emphysematous changes and chronic bilateral spiculated pulmonary opacities, likely postinfe ctious residua Cardiomegaly Reviewed, dictated and finalized at Location A. Reviewed, dictated and finalized at location A. IMPRESSION: No evidence of pulmonary embolism Prominent emphysematous changes and chronic bilateral spiculated pulmonary opac ities, likely postinfectious residua Cardiomegaly
--- NOTE | ~2021-02-27 | CT_ITS ---
EXAMINATION: CT brain wo con EXAM DATE: 03/01/2021 11:31 INDICATION: headaches since a fall 02/24, hit her head. TECHNIQUE: Spiral CT of the head was performed without contrast. Axial, coronal and sagittal images were reviewed. The dose-length product (DLP) for this examination was 605.33 mGy-cm. The exposure w as tailored according to patient size, and iterative reconstruction (ASIR) was used as additional dos e reduction technique. Comparison is made to prior examination from 12/26/2017. FINDINGS: There is an old small to moderate-sized right-sided subinsular cortical infarction unchange d. There is no acute intraparenchymal hemorrhage. No evidence of intraparenchymal brain mass lesion. No evidence of acute infarction. Please note that initial head CT has limited sensitivity for smal l or acute infarctions. There is moderate periventricular and subcortical hypodensity, nonspecific bu t probably related to small vessel ischemic disease. There is moderate prominence of the sulci and ventricles related to cerebral atrophy. There is intracranial carotid arteriosclerosis. There are no extra-axial collections. There is no mass effect or midline shift. Patient has had bilateral ocu lar lens surgery. Soft tissue is unremarkable. Right maxillary sinus wall thickening, evidence of h istory chronic sinusitis. IMPRESSION: 1. No acute intracranial findings. 2. Chronic age related findings. 3. Old right subinsular cortical infarction. Reviewed, dictated and finalized at location B.
--- NOTE | ~2021-02-27 | CT_ITS ---
EXAMINATION: CT abdomen pelvis wo con DATE: 02/28/2021 13:57 INDICATION: Abdominal pain with defecation. Anorexia. TECHNIQUE: Computed tomography (CT) of the abdomen and pelvis was performed without intravenous contr ast. Automated exposure control and iterative reconstruction technique were employed. The dose-length product was 261.75 mGy-cm. COMPARISON: 12/27/2020 FINDINGS: Mild emphysema at the lower lungs. Tiny bilateral pleural effusions with mild dependent atelectasis i n the bilateral lower lobes. A few calcified pulmonary nodules at the posterior sulcus of the right l ower lobe along with a few splenic calcific lesions consistent with old granulomatous disease. Heart size is normal. No pericardial effusion. There is diffuse increased attenuation of the hepatic parenchyma which could be seen with either vero chromatosis or chronic amiodarone use. Gallbladder is again not visualized and likely surgically abse nt. Pancreas and bilateral adrenal glands are normal. 1.1 cm left renal cyst. There is small amount o f residual excreted contrast within the bilateral renal collecting systems, ureters and in the partia lly obscured bladder likely related to earlier contrast-enhanced chest CT. Portions of the pelvis inc luding the bladder are obscured by dense metallic streak artifact resulting from a bipolar type right hip hemiarthroplasty and antegrade intramedullary abdoulaye and dynamic femoral neck compression screw fix ation at the proximal left femur. The uterus is not identified and has likely been surgically resected. Large amount of fluid and debri s within the stomach. The duodenal jejunal junction expected location of the ligament of Treitz is si gnificantly more caudal than the gastric pylorus consistent with a developmental bowel malrotation. T he colon however remains in normal position there is no evident volvulus or obstruction. There is mod erate colonic diverticulosis with a sigmoid predominance. There is no adjacent inflammatory change to suggest diverticulitis. There is wall thickening at the sigmoid colon and rectum consistent with a d istal colitis which could be infectious, inflammatory or ischemic in etiology. The appendix is not vi sualized. No pericecal inflammatory change to suggest acute appendicitis. No free intraperitoneal gas or fluid. No pathologically enlarged abdominal or pelvic lymphadenopathy. There is calcified atherosclerosis of the aorta and severe lumbar and lower thoracic spondylosis. Ch ronic L1 compression fracture with change of prior vertebroplasty. There is also intrathecal pain pum p with 2 catheters extending cephalad along the central canal the lumbar spine with distal tips posit ioned at the level of L1-L2 and T11-T12. Again seen is a nodular region of scarring along the subcuta neous fat at the anterior left pelvis at the site of a previously explanted pain pump which can be se en on CT dated 03/23/2009. IMPRESSION: 1. Wall thickening at the sigmoid colon and rectum consistent with a distal colitis which could be in fectious, inflammatory or ischemic in etiology. 2. Moderate diverticulosis. 3. Emphysema. 4. Diffuse increased attenuation of the hepatic parenchyma which could be seen with hemachromatosis o r chronic amiodarone use. Reviewed, dictated and finalized at location A. IMPRESSION: 1. Wall thickening at the sigmoid colon and rectum consistent with a distal col itis which could be infectious, inflammatory or ischemic in etiology. 2. Moderate diverticulosis. 3. Emphysema. 4. Diffuse increased attenuation of the hepatic parenchyma which could be seen with hemachromatosis or chronic amiodarone use.
--- NOTE | ~2021-02-27 | XR_ITS ---
EXAMINATION: XR chest 1V portable EXAM DATE: 02/27/2021 22:07 INDICATION: Dyspnea, COPD, asthma. Productive cough and chest pain. TECHNIQUE: Portable AP frontal chest x-ray was obtained. Comparison is made to prior examination from 12/27/2020. FINDINGS: The lungs are hyperinflated which can be seen with chronic obstructive pulmonary disease (a clinical diagnosis of functional impairment), but is not diagnostic of it. There is indistinct retic ulation with a bibasal predominance which may indicate pulmonary edema. Borderline heart size. No con fluent consolidation, pneumothorax or pleural effusion suspected. There are bony degenerative changes . There is vertebroplasty, probably L1 level. There is aortic arteriosclerosis. IMPRESSION: Indistinct reticulation without confluent consolidation, appearance most consistent with mild pulmonary edema. Chronic hyperinflation. Reviewed, dictated and finalized at location .
--- NOTE | 2021-02-27 21:08 | ECG_ITS ---
Measurements Intervals [place] Rate: 74 P: 92 [place]: 186 QRS: -11 QRSD: 107 T: 64 QT: 419 QTc: 467 Interpretive Statements SINUS RHYTHM BORDERLINE ST-T WAVE ABNORMALITY- HIGH LATERAL LEADS BASELINE ARTIFACT- I, II, III, AVR, AVL, AVF, V1-V6 BORDERLINE ECG Electronically Signed On 02-28-2021 7:50:25 CDT by Buck Friend D.O.
[2021-02-27] MEDS: ALBUTEROL SULFATE NEB 2.5 MG/0.5 ML INH 5 MG INHALATION ×3 (21:26→22:05)
[2021-02-27] MEDS: IPRATROPIUM BR 0.02% INH SOLN 0.5 MG/2.5 ML VIAL INHALATION ×3 (21:26→22:05)
[2021-02-27 21:58] LABS: Oxygen Saturation ABG 99.5 % (95.0-100.0); PO2 ABG 240.9 mmHg (80.0-100.0)
[2021-02-27 22:01] LABS: Modified Allen's Test Pass; Site Drawn RIGHT RADIAL
[2021-02-27 22:02] LABS: Device OTHER DEVICE
[2021-02-27 22:05] LABS: Base Excess ABG -1.4 mEq/l (+/-2.0); HCO3 ABG 24.8 mEq/l (22.0-26.0); Oxygen Content ABG 16.8 %vol (16.0-22.0); Oxyhemoglobin 97.2 % THb (90.0-100.0); PCO2 ABG 48.1 mmHg (35.0-45.0); PO2 FiO2 Ratio Arterial Blood 4.63 %; Total Hemoglobin 11.9 g/dL (12.0-18.0)
[2021-02-27 22:06] LABS: Fractional Inspired Oxygen 52 %
--- NOTE | 2021-02-27 22:10 | PC.NURSE ---
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
[2021-02-27 22:48] LABS: Basophils Percent Auto 0.3 % (0.2-1.2); Eosinophils Absolute Auto 0.2 K/mm3 (0-0.3); Eosinophils Percent Auto 1.4 % (0-4.4); Hematocrit 39.1 % (37.0-47.0); Hemoglobin 11.4 g/dL (12.0-15.0); Immature Granulocyte Absolute 0.05 K/mm3 (0.00-0.031); Immature Granulocyte Percent A 0.4 % (0-0.5); Lymphocytes Percent Auto 11.8 % (18.3-44.2); Mean Corpuscular HGB Conc 29.2 g/dl (32-36); Mean Corpuscular Hemoglobin 24.8 pg (26-34); Mean Corpuscular Volume 85.2 fl (80-100); Mean Platelet Volume 9.7 fl (7.4-10.4); Monocytes Absolute Auto 0.4 K/mm3 (0.1-0.6); Monocytes Percent Auto 3.1 % (2.6-8.5); Neutrophils Absolute Auto 9.8 K/mm3 (1.3-6.7); Platelet Count Result 302 k/mm3 (150-375); Red Blood Count 4.59 M/mm3 (4.2-5.4); Red Cell Distribution Width 19.9 % (11.5-14.5); White Blood Count 11.8 K/mm3 (4.5-10.0)
[2021-02-27 22:57] LABS: Hypochromasia 1+ (NORMAL); Platelet Estimate Adequate (Adequate)
[2021-02-27 22:58] LABS: Anisocytosis 1+ (NORMAL); Lactic Acid Reflex 2.4 mmol/L (0.7-2.1)
[2021-02-27 23:07] LABS: Alanine Aminotransferase 17 U/L (4-35); Albumin Level 3.9 g/dL (3.5-5.1); Alkaline Phosphatase 114 U/L (38-126); Anion Gap 7 mmol/L (8-16); Aspartate Amino Transferase 37 U/L (14-36); Bilirubin,Total 0.2 mg/dL (0.2-1.3); Blood Urea Nitrogen 13 mg/dL (7-17); Calcium 9.1 mg/dL (8.4-10.2); Carbon Dioxide 28 mmol/L (22-30); Chloride 105 mmol/L (98-107); Estimated Glomerular Filt Rate > 60; Glucose 119 mg/dL (65-105); Magnesium 1.6 mg/dL (1.6-2.3); Potassium 4.8 mmol/L (3.4-5.0); Sodium 140 mmol/L (137-145)
[2021-02-27 23:18] LABS: NT Pro B Type Natriuretic Pept 2710 pg/mL (5-100); Troponin I 0.068 ng/mL (0.000-0.034)
[2021-02-27] MEDS: ASPIRIN 81 MG CHEWABLE TABLET 324 MG PO (23:52)
--- NOTE | 2021-02-27 23:59 | ED.GENADULT ---
HPI - General Adult General Chief complaint: Shortness of Breath/Dyspnea Stated complaint: sob x 24 hours on 15lnrb Time Seen by Provider: 02/27/21 21:05 History of Present Illness HPI narrative: Patient 80-year-old female presents to emergency room with chief complaint of of cough and shortness of breath. The patient reports that she has been coughing and is been coughing up sputum and reports that she has had shortness of breath. The patient is not on home oxygen and when EMS arrived she had a room air saturation in the 80s. The patient states a little bit of tightness in her chest denies fever the patient reports that she felt a little better after EMS gave her a breathing treatment in route to the emergency department. Patient reports she has history of atrial fibrillation and also history of COPD. Related Data Home Medications Medication Instructions Recorded Confirmed alendronate 70 mg tablet 70 mg PO WEEKLY tablet 01/17/21 01/17/21 amiodarone 200 mg tablet 200 mg PO DAILY tablet 01/17/21 01/17/21 amlodipine 5 mg tablet 5 mg PO QAM tablet 01/17/21 01/17/21 atorvastatin 40 mg tablet 40 mg PO QHS tablet 01/17/21 01/17/21 metoprolol succinate 50 mg 50 mg PO DAILY tablet 01/17/21 01/17/21 tablet,extended release 24 hr nitroglycerin 0.4 mg sublingual 0.4 mg SUBLINGUAL Q5M PRN tablet 01/17/21 01/17/21 tablet Allergies Allergy/AdvReac Type Severity Reaction Status Date / Time metoclopramide Allergy Severe TONGUE Verified 02/27/21 21:30 SWELLING Penicillins Allergy Mild Pruritic Verified 02/27/21 21:30 rash codeine Allergy Unknown Unknown Verified 02/27/21 21:30 duloxetine Allergy Unknown Unknown Verified 02/27/21 21:30 ibuprofen Allergy Unknown Unknown Verified 02/27/21 21:30 meperidine Allergy Unknown Unknown Verified 02/27/21 21:30 rosuvastatin Allergy Unknown Unknown Verified 02/27/21 21:30 Sulfa (Sulfonamide Allergy Unknown Unknown Verified 02/27/21 21:30 Antibiotics) sulfanilamide Allergy Unknown unknown Verified 02/27/21 21:30 Review of Systems Review of Systems: Narrative: A 10 system review of systems was completed on the patient and is negative except for what is stated in the HPI. Nursing and ancillary documentation was reviewed. 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) Essential hypertension History of cerebrovascular accident with current residual effects Multiple lung nodules Non-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 Other osteoporosis without current pathological fracture Other specified depressive episodes Peripheral artery disease Personal history of (healed) traumatic fracture Post traumatic stress disorder (PTSD) Post-traumatic stress disorder, chronic Presence of pancreatic duct stent (~1995) Primary insomnia Recurrent major depressive disorder, 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 Unspecified chronic gastritis without bleeding Surgical History Surgical History H/O: hysterectomy (~1970) Removal of tumors, cysts and adhesions History of angioplasty of peripheral vessel 01/31: stent left pop/SFA History of appendectomy (~1962) History of cholecystectomy (~1962) History of hip replacement 2017 - Right History of laparoscopy 1997 - for adhesionolysis History of laparotomy 1966, 1968 - tumor excision 1972 - hysterectomy History of lumbosacral spine surgery 1977, 1978, 1992, 1994, Hx of sinus surgery 1984, 1985 Family History Family History Father Family history of diabetes mellitus in first degree relative Patient's father is Family history of coronar
[2021-02-28] VITALS (19 sets, daily range): BP systolic 115–137; BP diastolic 41–71; PULSE 63–83; RESP 14–20; TEMP 36.1–36.7; O2SAT 91–100; BMI 15.9
--- NOTE | 2021-02-28 00:30 | PC.NURSE ---
Pt to CT via stretcher at this time. Transported on 2L NC, alert and upright on stretcher.
[2021-02-28 01:22] LABS: Add Urine Microscopic? YES; Appearance Urine Cloudy (Clear); Bacteria Urine Trace /hpf; Bilirubin Urine Negative (Negative); Blood Urine Negative (Negative); Color Urine Yellow (Yellow); Glucose Urine UA Negative (Negative); Ketones Urine Negative (Negative); Leukocyte Esterase Ur Trace LEU/UL (Negative); Mucus Urine Rare /lpf; Nitrate Urine Negative (Negative); Protein Urine 2+ mg/dL (Negative); RBC Urine 0-2 /hpf (0-2); Specific Grav Ur 1.026 (1.001-1.035); Squamous Epithelial Cell Urine Rare /hpf (Few); Urobilinogen Urine Negative mg/dL (<2.0); WBC Urine 21-30 /hpf
[2021-02-28 01:45] LABS: Reflex Lactic Acid Yes or No Add Lactic
--- NOTE | 2021-02-28 03:06 | PC.NURSE ---
Attmepted to call report to 3rd Med/Surg. Spoke to Davonte and was informed that the receiving nurse is rearranging the pts room and would call for report when she is available.
--- NOTE | 2021-02-28 03:42 | ADMGEN ---
This patient, Mariam Pérez, was admitted to [facility] Surg Room 316-01. Patient/family oriented to hospital policies and general routines including ID bracelet, bed and alarms, visiting hours, pain management, procedures, bathroom and other care routines, personal items, smoking policy, room service/diet, and visiting hours. Information on how to activate the Rapid Response Team has been discussed. Patient/Family are encouraged to report perceived risks to care and to ask questions if they do not understand what they are told or what they should do.
[2021-02-28 03:44] LABS: Troponin I 0.136 ng/mL (0.000-0.034)
[2021-02-28] MEDS: methylPREDNISolone SOD SUCC 40 MG VIAL IV PUSH ×4 (07:02→23:26)
[2021-02-28 07:07] LABS: Lactic Acid 2.5 mmol/L (0.7-2.1)
[2021-02-28 07:34] LABS: Troponin I 0.119 ng/mL (0.000-0.034)
[2021-02-28] MEDS: ALBUTEROL SULFATE NEB 2.5 MG/0.5 ML INH 5 MG INHALATION ×3 (08:15→20:07)
[2021-02-28] MEDS: IPRATROPIUM BR 0.02% INH SOLN 0.5 MG/2.5 ML VIAL INHALATION ×3 (08:16→20:06)
[2021-02-28 09:04] LABS: Basophils Percent Auto 0.2 % (0.2-1.2); Hematocrit 38.1 % (37.0-47.0); Hemoglobin 11.3 g/dL (12.0-15.0); Immature Granulocyte Absolute 0.02 K/mm3 (0.00-0.031); Immature Granulocyte Percent A 0.3 % (0-0.5); Lymphocytes Absolute Auto 0.41 K/mm3 (0.9-3.2); Lymphocytes Percent Auto 6.7 % (18.3-44.2); Mean Corpuscular HGB Conc 29.7 g/dl (32-36); Mean Corpuscular Hemoglobin 25.1 pg (26-34); Mean Corpuscular Volume 84.7 fl (80-100); Mean Platelet Volume 9.6 fl (7.4-10.4); Monocytes Percent Auto 0.7 % (2.6-8.5); Neutrophils Absolute Auto 5.6 K/mm3 (1.3-6.7); Neutrophils Percent Auto 92.1 % (45.5-73.1); Platelet Count Result 308 k/mm3 (150-375); Red Cell Distribution Width 19.9 % (11.5-14.5); White Blood Count 6.1 K/mm3 (4.5-10.0)
[2021-02-28 09:33] LABS: Platelet Estimate Adequate (Adequate); Poikilocytosis 1+ (NORMAL)
[2021-02-28 09:34] LABS: Anisocytosis 1+ (NORMAL); Ovalocytes 1+ (NORMAL)
[2021-02-28] MEDS: LATANOPROST 0.005% OP SOLN 2.5 ML BTL 1 DROP EACH EYE ×2 (09:48→21:04)
[2021-02-28] MEDS: BRIMONIDINE TARTRATE 0.1% 5 ML OPHTH DROPS 1 DROP EACH EYE ×2 (09:48→17:24)
[2021-02-28] MEDS: APIXABAN 2.5 MG TABLET PO ×2 (09:49→17:24)
[2021-02-28] MEDS: levETIRAcetam 500 MG TABLET PO ×2 (09:49→21:03)
[2021-02-28] MEDS: FAMOTIDINE 20 MG TABLET PO (09:49)
[2021-02-28] MEDS: SACCHAROMYCES BOULARDII 250 MG CAPSULE PO ×2 (09:49→17:24)
[2021-02-28] MEDS: SERTRALINE HCL 25 MG TABLET PO (09:49)
[2021-02-28] MEDS: FERROUS SULFATE 324 MG TABLET PO ×2 (09:49→17:24)
[2021-02-28] MEDS: METOPROLOL SUCCINATE EXT REL 50 MG TABCR PO (09:51)
[2021-02-28] MEDS: AMIODARONE HCL 200 MG TABLET PO (09:51)
[2021-02-28 09:55] LABS: Anion Gap 9 mmol/L (8-16); Blood Urea Nitrogen 11 mg/dL (7-17); Calcium 8.9 mg/dL (8.4-10.2); Carbon Dioxide 23 mmol/L (22-30); Chloride 105 mmol/L (98-107); Estimated CRCL calculation 52 ml/min; Estimated Glomerular Filt Rate > 60; Glucose 128 mg/dL (65-105); Magnesium 1.5 mg/dL (1.6-2.3); Potassium 4.6 mmol/L (3.4-5.0); Sodium 137 mmol/L (137-145)
--- NOTE | 2021-02-28 11:00 | PM.IMHP ---
H&P: HPI History of Present Illness Date/Time: 02/28/21 1030 Chief Complaint: Shortness of breath Narrative: 02/28/21 1030 The supervising physician for this history and physical is Dr Hua. Ms. Pérez is a 80yo F with history of Paroxysmal atrial fibrillation, COPD, peripheral arterial disease, [id number] type 2 diabetes mellitus and several other comorbidities who presented to the ED for evaluation of shortness of breath and cough worsening over the last 3 days. She describes that she was hospitalized here 2 other times in the last 3 months for similar issues dating back to November when she was treated here for pneumonia. She describes over the last couple days, feeling more short of breath with less or loss or activity. She also describes a productive cough with yellowish sputum. She denies any chest pain or palpitations. She denies any fever or chills at home. No known sick contacts. She describes a multitude of other complaints at this time. She describes an unintentional 50 lb weight loss over the last 1 year. She describes after she eats, her abdomen feels bloated and she develops abdominal cramping when she is attempting to have a bowel movement and this has been ongoing over the last 6 months. This abdominal cramping occurs to her left mid-abdomen over a site of old scarring that has developed after she had a pain pump removed that subsequently became infected in 2014. She also describes a wound to her left heel that is having trouble healing despite multiple rounds of antibiotics. She is known to have peripheral vascular disease s/p a left lower extremity bypass, followed by vascular surgery. She reports increased aching to the toes on her left foot at rest and with walking. She feels weak and has had multiple falls lately. She also describes right upper extremity pain with any active or passive range of motion. It is reported on EMS arrival, she had notable increased work of breathing with O2 saturations 81% on room air. She was given breathing treatments and route which she felt helped. She was initially still hypoxic on arrival to the ED and has been on low-flow supplemental oxygen overnight. CTA chest demonstrated no evidence of PE but shows cardiomegaly and prominent emphysematous changes and chronic bilateral opacities, likely post infectious residual. Labs demonstrate a mild leukocytosis that is resolved this morning, stable chronic normocytic anemia, low magnesium, mildly elevated troponins that have plateaued. At time of my exam she is saturating 94% on room air at rest. She was started on IV steroids, nebulized bronchodilator therapy and admitted to the hospitalist service under observation status for management of suspected COPD exacerbation. Review of Systems Review of Systems: Narrative: She presents with worsening shortness of breath with less or lesser activity and a productive cough with yellow sputum over the last 3 days. Has been hospitalized recently for similar symptoms. She reports her shortness of breath is improved after steroids and breathing treatments. She has a multitude of other complaints to include weight loss, right upper extremity pain, nonhealing ulcer to left ankle, sore toes to left foot as described above. She denies chest pain or palpitations. Describes abdominal bloating after eating, abdominal cramping with defecation and it has been many years since she had a colonoscopy. Denies dizziness or syncope. She reports generalized weakness with multiple falls recently. Twelve systems were reviewed with pertinent positives and negatives as per HPI. Except as documented, all other systems were reviewed and are negative. 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
[2021-02-28] MEDS: MAGNESIUM SULFATE 3GM/D5W100ML 3 GM/100 ML BAG IVPB (11:03)
[2021-02-28] MEDS: MORPHINE SULFATE (*CRX) 15 MG TABCR PO ×2 (13:06→21:03)
[2021-02-28] MEDS: GABAPENTIN 300 MG CAPSULE 600 MG PO ×3 (13:07→21:03)
[2021-02-28 13:23] LABS: Lactic Acid Reflex 2.1 mmol/L (0.7-2.1)
[2021-02-28 13:48] LABS: Magnesium 2.8 mg/dL (1.6-2.3)
--- NOTE | 2021-02-28 13:56 | PCOTNOTE ---
Attempted OT evaluation, Patient is currently off the unit for testing. Will follow and attempt at later time.
[2021-02-28] MEDS: metroNIDAZOLE 500 MG/ISO 100ML 500 MG/100 ML BAG 100 MG IVPB ×2 (15:33→21:04)
[2021-02-28] MEDS: SILVERGEL (ELTA) 45 ML 1 APPLIC TOPICAL (15:33)
[2021-02-28] MEDS: CIPROFLOXACIN 400 MG/D5W 200ML 200 ML 200 MG IVPB ×2 (15:33→23:23)
[2021-02-28 16:06] LABS: Reflex Lactic Acid Yes or No Add Lactic
[2021-02-28 17:01] LABS: Lactic Acid 3.2 mmol/L (0.7-2.1)
[2021-02-28 17:30] LABS: Glucose Point of Care 166 mg/dl (65-105)
[2021-02-28] MEDS: MELATONIN 3 MG TABLET PO (21:03)
[2021-02-28] MEDS: ATORVASTATIN 40 MG TABLET PO (21:04)
[2021-03-01] VITALS (10 sets, daily range): BP systolic 129–146; BP diastolic 43–60; PULSE 60–88; RESP 16–20; TEMP 36.2–36.6; O2SAT 93–96
--- NOTE | 2021-03-01 | ECHO_ITS ---
Patient Info Name: Mariam Pérez Age: 80 years : 1940 Gender: Female Ht: 65 in Wt: 95 lbs BSA: 1.39 m2 HR: 63 bpm BP: 146 / 60 mmHg Heart Rhythm: Sinus Rhythm Technical Quality: Good Exam Date: 03/01/2021 9:28 AM Exam Location: [facility] Pulmonary Exam Room: [facility] Patient Status: Inpatient Admit Date: 02/28/2021 Staff Ordering Physician: Kirsten Colvin PA-C Prism Inspector: Renetta Slaughter RDCS Attending Provider: Kirsten Colvin PA-C Exam Type: CA echo doppler color flow Study Info Indications - sob elevated troponins Complete two-dimensional, color flow and Doppler transthoracic echocardiogram is performed. Summary 1. Complete two-dimensional, color flow and Doppler transthoracic echocardiogram is performed. 2. Normal left ventricular size and thickness. The left ventricular systolic function is at the lower end of normal, EF estimated to be 55-60%. No focal wall motion abnormalities. Grade 2 diastolic dysfunction is present. 3. Left atrial chamber dimension is very severely enlarged. 4. There is mild aortic valve regurgitation. 5. There is moderate mitral valve regurgitation. 6. There is mild tricuspid valve regurgitation. 7. Moderate pulmonary hypertension, estimated pulmonary arterial systolic pressure is 53 mmHg. 8. There is moderate aortic atherosclerosis of the abdominal aorta. 9. Normal sinus rhythm. Left Ventricle Left ventricular chamber dimension is normal. Left ventricular systolic function is normal, estimated at 55-60%. There is no increased left ventricular wall thickness. Left ventricular septal wall motion is normal. The left ventricular diastolic function is grade II diastolic dysfunction. Right Ventricle Right ventricular chamber dimension is normal. Right ventricular systolic function is normal. Left Atria Left atrial chamber dimension is very severely enlarged. Right Atria Right atrial chamber dimension is normal. Aortic Valve The aortic valve is trileaflet. There is no aortic valve sclerosis. There is no aortic valve stenosis. There is mild aortic valve regurgitation. Pulmonic Valve The pulmonic valve is normal. There is no pulmonic valve stenosis. There is trace pulmonic regurgitation. Mitral Valve The mitral valve has normal leaflets. There is no mitral valve stenosis. There is moderate mitral valve regurgitation. Tricuspid Valve The tricuspid valve leaflets are normal. There is no significant tricuspid valve stenosis. There is mild tricuspid valve regurgitation. Moderate pulmonary hypertension, estimated pulmonary arterial systolic pressure is 53 mmHg. Pericardium/Pleural The pericardium appears normal. There is no pericardial effusion. Inferior Vena Cava Normal inferior vena cava with >50% collapse upon inspiration consistent with Empty right atrial pressure, 10 mmHg. Aorta The aortic root size at the sinus of Valsalva is normal. The prox ascending aorta size is normal. There is moderate aortic atherosclerosis of the abdominal aorta. Left Ventricular Outflow Tract Name Value Normal LVOT 2D LVOT Diameter 2.0 cm LVOT Doppler
[2021-03-01] MEDS: ALBUTEROL SULFATE NEB 2.5 MG/0.5 ML INH 5 MG INHALATION ×2 (01:40→20:16)
[2021-03-01] MEDS: IPRATROPIUM BR 0.02% INH SOLN 0.5 MG/2.5 ML VIAL INHALATION ×2 (01:41→20:16)
[2021-03-01] MEDS: methylPREDNISolone SOD SUCC 40 MG VIAL IV PUSH ×2 (05:00→21:28)
[2021-03-01] MEDS: MORPHINE SULFATE (*CRX) 15 MG TABCR PO ×3 (05:00→21:28)
[2021-03-01] MEDS: metroNIDAZOLE 500 MG/ISO 100ML 500 MG/100 ML BAG 100 MG IVPB ×3 (05:00→21:28)
[2021-03-01 06:09] LABS: Hematocrit 34.1 % (37.0-47.0); Hemoglobin 10.3 g/dL (12.0-15.0); Immature Granulocyte Absolute 0.04 K/mm3 (0.00-0.031); Immature Granulocyte Percent A 0.4 % (0-0.5); Lymphocytes Absolute Auto 0.55 K/mm3 (0.9-3.2); Lymphocytes Percent Auto 4.9 % (18.3-44.2); Mean Corpuscular HGB Conc 30.2 g/dl (32-36); Mean Corpuscular Hemoglobin 25.1 pg (26-34); Mean Platelet Volume 9.8 fl (7.4-10.4); Monocytes Absolute Auto 0.3 K/mm3 (0.1-0.6); Monocytes Percent Auto 2.4 % (2.6-8.5); Neutrophils Absolute Auto 10.3 K/mm3 (1.3-6.7); Neutrophils Percent Auto 92.3 % (45.5-73.1); Platelet Count Result 306 k/mm3 (150-375); Red Blood Count 4.11 M/mm3 (4.2-5.4); Red Cell Distribution Width 19.6 % (11.5-14.5); White Blood Count 11.1 K/mm3 (4.5-10.0)
[2021-03-01 06:17] LABS: Prothrombin Time 14.1 Seconds (11.1-14.7)
[2021-03-01 06:25] LABS: Alanine Aminotransferase 16 U/L (4-35); Albumin Level 3.3 g/dL (3.5-5.1); Alkaline Phosphatase 94 U/L (38-126); Anion Gap 5 mmol/L (8-16); Aspartate Amino Transferase 33 U/L (14-36); Bilirubin,Total 0.1 mg/dL (0.2-1.3); Blood Urea Nitrogen 12 mg/dL (7-17); Calcium 8.4 mg/dL (8.4-10.2); Carbon Dioxide 25 mmol/L (22-30); Chloride 108 mmol/L (98-107); Estimated CRCL calculation 52 ml/min; Estimated Glomerular Filt Rate > 60; Glucose 139 mg/dL (65-105); Magnesium 1.9 mg/dL (1.6-2.3); Potassium 4.1 mmol/L (3.4-5.0); Sodium 138 mmol/L (137-145)
[2021-03-01 06:49] LABS: Platelet Estimate Adequate (Adequate); Poikilocytosis 1+ (NORMAL)
[2021-03-01 06:50] LABS: Ovalocytes 1+ (NORMAL)
[2021-03-01 07:10] LABS: Hemoglobin A1C 5.7 % (<5.7)
[2021-03-01 08:16] LABS: Glucose Point of Care 139 mg/dl (65-105)
[2021-03-01] MEDS: GABAPENTIN 300 MG CAPSULE 600 MG PO ×4 (09:40→21:28)
[2021-03-01] MEDS: SERTRALINE HCL 25 MG TABLET PO (09:40)
[2021-03-01] MEDS: SILVERGEL (ELTA) 45 ML 1 APPLIC TOPICAL (09:41)
[2021-03-01] MEDS: AMIODARONE HCL 200 MG TABLET PO (09:41)
[2021-03-01] MEDS: SACCHAROMYCES BOULARDII 250 MG CAPSULE PO ×2 (09:41→17:23)
[2021-03-01] MEDS: BRIMONIDINE TARTRATE 0.1% 5 ML OPHTH DROPS 1 DROP EACH EYE ×2 (09:41→17:22)
[2021-03-01] MEDS: FERROUS SULFATE 324 MG TABLET PO ×2 (09:41→17:22)
[2021-03-01] MEDS: FAMOTIDINE 20 MG TABLET PO (09:41)
[2021-03-01] MEDS: CIPROFLOXACIN 400 MG/D5W 200ML 200 ML 200 MG IVPB ×2 (09:41→21:28)
[2021-03-01] MEDS: METOPROLOL SUCCINATE EXT REL 50 MG TABCR PO (09:41)
[2021-03-01] MEDS: levETIRAcetam 500 MG TABLET PO ×2 (09:41→21:28)
[2021-03-01] MEDS: APIXABAN 2.5 MG TABLET PO ×2 (09:41→17:22)
--- NOTE | 2021-03-01 10:28 | PM.IMPN ---
Progress Note: A&P Assessment and Plan (1) Acute exacerbation of chronic obstructive pulmonary disease (COPD): Code(s): J44.1 - Chronic obstructive pulmonary disease with (acute) exacerbation Status: Acute Assessment and Plan: This is her primary reason for admission. CTA demonstrates prominent emphysematous changes and findings consistent with post infection residual without evidence of PE. Wheezing on exam but improved. Continue IV soul-medrol, wean dose today and nebulized bronchodilator therapy. Monitor oxygenation. Collect sputum culture if she can produce one. Start mucinex. (2) Colitis: Code(s): K52.9 - Noninfective gastroenteritis and colitis, unspecified Status: Acute Assessment and Plan: Patient describes abdominal bloating after eating and vague abdominal pain. CT abd/pel shows evidence of colitis. Continue empiric IV antibiotic therapy with Cipro and Flagyl (day 2). Tolerating a low fiber diet. (3) UTI (urinary tract infection): Qualifiers: Urinary tract infection type: acute cystitis Hematuria presence: without hematuria Qualified Code(s): N30.00 - Acute cystitis without hematuria Code(s): N39.0 - Urinary tract infection, site not specified Status: Acute Assessment and Plan: Urine culture grew > 100,000 Klebsiella aerogenes. Sensitive to the Cipro she is getting for colitis. Blood cultures pending with no growth to date. (4) A-fib: Qualifiers: Atrial fibrillation type: unspecified Qualified Code(s): I48.91 - Unspecified atrial fibrillation Code(s): I48.91 - Unspecified atrial fibrillation Status: Chronic Assessment and Plan: In sinus rhythm on arrival, rate remains regular on exam today. Continue her home amiodarone, metoprolol. Maintained on long-term anticoagulation with Eliquis. (5) Elevated troponin: Code(s): R77.8 - Other specified abnormalities of plasma proteins Status: Acute Assessment and Plan: 0.068/ 0.136/ 0.119. Patient denies chest pain. EKG without ST elevation or depression. Suspect may be related to demand ischemia from above. Continue to monitor for chest pain. Echocardiogram pending. She may benefit from outpatient cardiology referral and/or stress testing. (6) Wound of left foot: Code(s): S91.302A - Unspecified open wound, left foot, initial encounter Status: Chronic Assessment and Plan: Small wounds to lateral left ankle and left heel long-standing and poor wound healing due to peripheral vascular disease, ongoing tobacco use, and diabetes. Continue local wound care with dressing changes. (7) Peripheral artery disease: Code(s): I73.9 - Peripheral vascular disease, unspecified Status: Chronic Assessment and Plan: Patient has significant peripheral arterial disease with previous left lower extremity bypass by Dr. Olmstead in [place] a few years ago per patient. She has claudication and decreased flow to the left foot. Able to Doppler a posterior tibial pulse to left foot. Reiterated the importance of following up with her vascular surgeon. (8) Essential hypertension: Code(s): I10 - Essential (primary) hypertension Status: Chronic Assessment and Plan: Blood pressures reviewed; stable, on the lower end. Hold her Norvasc. Continue metoprolol. Monitor BP and adjust treatment as needed. (9) Type 2 diabetes mellitus with other circulatory complications: Code(s): E11.59 - Type 2 diabetes mellitus with other circulatory complications Status: Chronic Asses
[2021-03-01 12:13] LABS: Glucose Point of Care 213 mg/dl (65-105)
[2021-03-01] MEDS: INSULIN ASPART (*BKC) 100 UNITS/ML SUB-Q (12:55)
--- NOTE | 2021-03-01 14:05 | PCRCNOTE ---
Pt ref neb tx
[2021-03-01] MEDS: ACETAMINOPHEN 325 MG TABLET 650 MG PO (17:21)
[2021-03-01 17:52] LABS: Glucose Point of Care 85 mg/dl (65-105)
[2021-03-01] MEDS: guaiFENesin 12 HR 600 MG TABCR PO (21:28)
[2021-03-01] MEDS: MELATONIN 3 MG TABLET PO (21:28)
[2021-03-01] MEDS: ATORVASTATIN 40 MG TABLET PO (21:28)
[2021-03-01 22:06] LABS: Glucose Point of Care 120 mg/dl (65-105)
[2021-03-01] MEDS: LATANOPROST 0.005% OP SOLN 2.5 ML BTL 1 DROP EACH EYE (23:38)
[2021-03-02] VITALS (7 sets, daily range): BP systolic 131–132; BP diastolic 57–60; PULSE 61–89; RESP 16–18; TEMP 36.2–36.4; O2SAT 94
[2021-03-02] MEDS: IPRATROPIUM BR 0.02% INH SOLN 0.5 MG/2.5 ML VIAL INHALATION ×2 (01:54→15:14)
[2021-03-02] MEDS: ALBUTEROL SULFATE NEB 2.5 MG/0.5 ML INH 5 MG INHALATION ×2 (01:54→15:14)
[2021-03-02] MEDS: MORPHINE SULFATE (*CRX) 15 MG TABCR PO ×2 (05:08→15:55)
[2021-03-02] MEDS: metroNIDAZOLE 500 MG/ISO 100ML 500 MG/100 ML BAG 100 MG IVPB ×2 (05:10→15:55)
[2021-03-02 06:41] LABS: Basophils Percent Auto 0.1 % (0.2-1.2); Hematocrit 34.2 % (37.0-47.0); Hemoglobin 10.3 g/dL (12.0-15.0); Immature Granulocyte Absolute 0.11 K/mm3 (0.00-0.031); Immature Granulocyte Percent A 0.8 % (0-0.5); Lymphocytes Absolute Auto 0.36 K/mm3 (0.9-3.2); Lymphocytes Percent Auto 2.7 % (18.3-44.2); Mean Corpuscular HGB Conc 30.1 g/dl (32-36); Mean Platelet Volume 9.7 fl (7.4-10.4); Monocytes Absolute Auto 0.3 K/mm3 (0.1-0.6); Monocytes Percent Auto 2.1 % (2.6-8.5); Neutrophils Absolute Auto 12.8 K/mm3 (1.3-6.7); Neutrophils Percent Auto 94.3 % (45.5-73.1); Platelet Count Result 331 k/mm3 (150-375); Red Blood Count 4.12 M/mm3 (4.2-5.4); Red Cell Distribution Width 19.9 % (11.5-14.5); White Blood Count 13.6 K/mm3 (4.5-10.0)
[2021-03-02 06:51] LABS: Lactic Acid Reflex 1.8 mmol/L (0.7-2.1)
[2021-03-02 06:53] LABS: Alanine Aminotransferase 17 U/L (4-35); Albumin Level 3.1 g/dL (3.5-5.1); Alkaline Phosphatase 86 U/L (38-126); Anion Gap 5 mmol/L (8-16); Aspartate Amino Transferase 27 U/L (14-36); Bilirubin,Total 0.1 mg/dL (0.2-1.3); Blood Urea Nitrogen 15 mg/dL (7-17); Calcium 8.2 mg/dL (8.4-10.2); Carbon Dioxide 26 mmol/L (22-30); Chloride 108 mmol/L (98-107); Estimated CRCL calculation 52 ml/min; Estimated Glomerular Filt Rate > 60; Glucose 127 mg/dL (65-105); Magnesium 1.7 mg/dL (1.6-2.3); Potassium 4.3 mmol/L (3.4-5.0); Sodium 139 mmol/L (137-145)
[2021-03-02 07:09] LABS: Platelet Estimate Adequate (Adequate)
[2021-03-02 07:10] LABS: Ovalocytes 1+ (NORMAL); Poikilocytosis 1+ (NORMAL)
--- NOTE | 2021-03-02 07:42 | PCRCNOTE ---
pt ref neb but took MDI
[2021-03-02 08:13] LABS: Glucose Point of Care 119 mg/dl (65-105)
[2021-03-02] MEDS: levETIRAcetam 500 MG TABLET PO (09:44)
[2021-03-02] MEDS: BRIMONIDINE TARTRATE 0.1% 5 ML OPHTH DROPS 1 DROP EACH EYE (09:44)
[2021-03-02] MEDS: GABAPENTIN 300 MG CAPSULE 600 MG PO ×2 (09:44→12:12)
[2021-03-02] MEDS: SACCHAROMYCES BOULARDII 250 MG CAPSULE PO (09:44)
[2021-03-02] MEDS: guaiFENesin 12 HR 600 MG TABCR PO (09:44)
[2021-03-02] MEDS: AMIODARONE HCL 200 MG TABLET PO (09:44)
[2021-03-02] MEDS: SERTRALINE HCL 25 MG TABLET PO (09:44)
[2021-03-02] MEDS: SILVERGEL (ELTA) 45 ML 1 APPLIC TOPICAL (09:44)
[2021-03-02] MEDS: FERROUS SULFATE 324 MG TABLET PO (09:44)
[2021-03-02] MEDS: METOPROLOL SUCCINATE EXT REL 50 MG TABCR PO (09:45)
[2021-03-02] MEDS: methylPREDNISolone SOD SUCC 40 MG VIAL IV PUSH (09:46)
[2021-03-02] MEDS: APIXABAN 2.5 MG TABLET PO (09:46)
[2021-03-02] MEDS: FAMOTIDINE 20 MG TABLET PO (09:46)
[2021-03-02] MEDS: ACETAMINOPHEN 325 MG TABLET 650 MG PO (10:00)
[2021-03-02] MEDS: CIPROFLOXACIN 400 MG/D5W 200ML 200 ML 200 MG IVPB (10:01)
[2021-03-02 11:44] LABS: Glucose Point of Care 152 mg/dl (65-105)
[2021-03-02] MEDS: MAGNESIUM OXIDE 400 MG TABLET PO (12:12)
--- NOTE | 2021-03-02 15:13 | PCRCNOTE ---
Home neb setup with [facility]. Nebulizer in room and instruct done with pt on use. Pt aware she will need to go to pharmacy for neb medications to be filled.
--- NOTE | 2021-03-02 16:59 | PM.DS ---
DS: Admitting Diagnosis Admitting Diagnosis Admitting Diagnosis: COPD exacerbation DS: Discharge Diagnosis Discharge Diagnosis (1) Acute exacerbation of chronic obstructive pulmonary disease (COPD): Code(s): J44.1 - Chronic obstructive pulmonary disease with (acute) exacerbation Status: Acute Assessment and Plan: Date of Admission 02/28/21 Date of Discharge 03/02/21 Ms. Pérez is a 80yo F with history of Paroxysmal atrial fibrillation, COPD, peripheral arterial disease, [id number] type 2 diabetes mellitus and several other comorbidities who presented to the ED for evaluation of shortness of breath and cough worsening over the last 3 days. She also described multiple other complaints, see H&P for full details. She was treated for COPD exacerbation with IV solu-medrol and nebulized bronchodilator therapy, transitioned to a tapered prednisone dose at discharge. She was also found to have colitis and was empirically treated with flagyl and ciprofloxacin. She was also found to have UTI and urine culture grew Klebsiella susceptible to cipro. Overall her shortness of breath improved with the therapy outlined above and she was hemodynamically stable for discharge 03/02/21. She is recommended to follow up with the pulmonology referral as provided to her by her PCP as well as seeing her vascular surgeon regarding her peripheral vascular disease. COPD exacerbation was her primary reason for admission. CTA demonstrates prominent emphysematous changes and findings consistent with post infection residual without evidence of PE. Treated with IV steroids transitioned to oral prednisone taper at discharge. Prescribed nebulizer with albuterol at discharge as this seems to be helping and given her multiple recent hospitalizations. (2) Colitis: Code(s): K52.9 - Noninfective gastroenteritis and colitis, unspecified Status: Acute Assessment and Plan: Patient describes abdominal bloating after eating and vague abdominal pain. CT abd/pel shows evidence of colitis. Treated with 3 days IV ciprofloxacin and flagyl, transitioned to oral abx at discharge to complete the course. Tolerating a low fiber diet. GI follow up recommended as mentioned below. (3) UTI (urinary tract infection): Qualifiers: Urinary tract infection type: acute cystitis Hematuria presence: without hematuria Qualified Code(s): N30.00 - Acute cystitis without hematuria Code(s): N39.0 - Urinary tract infection, site not specified Status: Acute Assessment and Plan: Urine culture grew > 100,000 Klebsiella aerogenes. Sensitive to the Cipro she is getting for colitis. Blood cultures pending with no growth to date. (4) A-fib: Qualifiers: Atrial fibrillation type: unspecified Qualified Code(s): I48.91 - Unspecified atrial fibrillation Code(s): I48.91 - Unspecified atrial fibrillation Status: Chronic Assessment and Plan: In sinus rhythm on arrival, rate remains regular on exam today. Continue her home amiodarone, metoprolol. Maintained on long-term anticoagulation with Eliquis. (5) Elevated troponin: Code(s): R77.8 - Other specified abnormalities of plasma proteins Status: Acute Assessment and Plan: 0.068/ 0.136/ 0.119. Patient denies chest pain. EKG without ST elevation or depression. Suspect may be related to demand ischemia from above. Continue to monitor for chest pain. Echocardiogram detailed below. She may benefit from outpatient cardiology referral and/or stress testing. (6) Wound of left foot: Code(s): S91.302A - Unspecified open wound, left foot, initial encounter Status: Chronic Asse
== END 2021-03-02 17:25 | disposition home health service (06) ==
LOC: ANHED 02-28 02:36 → ANH3MEDSUR 02-28 03:14
PROVIDERS: Physician Assistant; Admitting Provider Internal Medicine; Emergency Provider Emergency Medicine; PCP Family Medicine; Visit Provider Internal Medicine
DX: J44.1 Chronic obstructive pulmonary disease with (acute) exacerbation (principal); K52.9 Noninfective gastroenteritis and colitis, unspecified; N39.0 Urinary tract infection, site not specified; B96.1 Klebsiella pneumoniae [K. pneumoniae] as the cause of diseases classified elsewhere; L97.529 Non-pressure chronic ulcer of other part of left foot with unspecified severity; E46 Unspecified protein-calorie malnutrition; E11.51 Type 2 diabetes mellitus with diabetic peripheral angiopathy without gangrene; E11.621 Type 2 diabetes mellitus with foot ulcer; F17.210 Nicotine dependence, cigarettes, uncomplicated; F41.9 Anxiety disorder, unspecified; I48.91 Unspecified atrial fibrillation; I10 Essential (primary) hypertension; M54.5 Low back pain; M19.011 Primary osteoarthritis, right shoulder; R77.8 Other specified abnormalities of plasma proteins; Z96.641 Presence of right artificial hip joint; Z79.4 Long term (current) use of insulin
CPT/HCPCS: 36415; 36600; 51701; 70450; 71045; 71275; 73030; 73070; 74176; 80048; 80053; 81001; 82805; 82948; 83036; 83605; 83735; 83880; 84443; 84484; 85025; 85610; 87040; 87077; 87086; 87186; 93005; 93306; 94640; 96365; 96366; 96367; 96368; 96375; 96376; 97116; 97161; 97165; 99285; A9270; G0378; J0696; J0744; J1815; J2920; J3475; Q9967

== ENCOUNTER 2021-04-19 15:32 | Outpatient (CLI) | payer MEDICARE, SELFPAY ==
--- NOTE | ~2021-04-19 | US_ITS ---
EXAMINATION: US venous doppler [facility] DATE: 04/19/2021 16:01 INDICATION: Left lower limb edema and pain. TECHNIQUE: Grayscale ultrasound images without and with compression and Doppler ultrasound images of the left lower extremity veins were obtained. COMPARISON: Ultrasound 12/27/2020 FINDINGS: The visualized portions of left common femoral vein, profunda (deep) femoral vein, femoral vein, popl iteal vein, peroneal veins, posterior tibial veins, and greater saphenous vein outflow are patent. IMPRESSION: 1. No deep venous thrombosis. Reviewed, dictated and finalized at location A.
[2021-04-19 16:42] LABS: Cholesterol 136 mg/dL (0-200); HDL Direct 60 mg/dL; Triglycerides 87 mg/dL (<150)
[2021-04-19 16:54] LABS: LDL Cholesterol Direct 55 mg/dL
== END 2021-04-19 15:33 | disposition home or self-care (01) ==
PROVIDERS: PCP Family Medicine; Visit Provider Internal Medicine Cardiovascular Disease
DX: R60.0 Localized edema (principal); E78.5 Hyperlipidemia, unspecified
CPT/HCPCS: 36415; 80061; 93971

== ENCOUNTER 2021-05-18 19:48 | Inpatient (IN) | payer MEDICARE, SELFPAY ==
[2021-05-18] VITALS (12 sets, daily range): BP systolic 109–169; BP diastolic 44–130; PULSE 87–115; RESP 15–24; TEMP 37.2; O2SAT 89–100
--- NOTE | ~2021-05-18 | XR_ITS ---
XR chest 1V portable 05/22/2021 19:26 Indication: Shortness of breath Procedure: AP portable chest Comparison: Comparison to multiple prior studies sequentially, with oldest reviewed study dated 11/28. Findings: Bilateral airspace disease, right greater than left, compatible with pneumonia. Possible sm all effusion. No pneumothorax. The lungs are hyperinflated which is consistent with, but not diagnost ic of chronic obstructive pulmonary disease. Impression: 1: Bilateral airspace disease, consistent with pneumonia. Reviewed, dictated and finalized at location A. Impression: 1: Bilateral airspace disease, consistent with pneumonia.
--- NOTE | ~2021-05-18 | XR_ITS ---
EXAMINATION: XR chest 1V portable EXAM DATE: 05/28/2021 08:25 INDICATION: effusion TECHNIQUE: Portable AP frontal chest x-ray was obtained. Comparison is made to prior examination from 05/23/2021. FINDINGS: Small to moderate bilateral pleural effusions. Cardiomediastinal silhouette is normal (ther e is bilateral airspace disease compatible with pneumonia and edema. There is no pneumothorax suspect ed. There is aortic arteriosclerosis. There is pulmonary vascular congestion. Lumbar vertebroplasty. IMPRESSION: 1. Bilateral pneumonia and edema, mild interval improvement. 2. Small to moderate pleural effusions. Reviewed, dictated and finalized at location B.
--- NOTE | ~2021-05-18 | US_ITS ---
EXAMINATION: US thoracentesis DATE: 05/28/2021 16:05 INDICATION: Right pleural effusion TECHNIQUE: The procedure and its risks and benefits were discussed with the patient. Potential risks discussed included bleeding, infection, and pneumothorax. The patient understood the risks and agreed to proceed. The skin was prepped and draped in sterile fashion. 1% lidocaine was used for local anes thesia. Under ultrasound guidance, a 5 Fr catheter with trochar was advanced into the right pleural e ffusion. Fluid was aspirated. The catheter was removed, and a dressing was applied. There were no imm ediate complications. FINDINGS: Ultrasound images demonstrate a small complex right pleural effusion with multiple thin internal sept ations. Subsequent images demonstrate the drainage catheter within one of the larger anechoic loculat ions. IMPRESSION: 1. Small complex right pleural effusion with successful ultrasound-guided thoracentesis yielding 50 m L of turbid light yellow fluid with scattered internal debris. Reviewed, dictated and finalized at location A. IMPRESSION: 1. Small complex right pleural effusion with successful ultrasound-guided thora centesis yielding 50 mL of turbid light yellow fluid with scattered internal de bris.
--- NOTE | ~2021-05-18 | XR_ITS ---
EXAMINATION: [id number] DATE: 05/28/2021 13:40 INDICATION: Right pleural effusion TECHNIQUE: frontal view of the chest was obtained. COMPARISON: Chest radiograph dated 05/28/2021 FINDINGS: Persistent opacities in the right mid to lower and left lower lung zones with blunting at the costoph renic angles consistent with small bilateral pleural effusions and associated atelectasis and/or pneu monia. No pneumothorax. The cardiomediastinal silhouette is normal. Left upper extremity peripherally inserted central venous catheter (PICC) tip at the left axillary vein. L1 vertebroplasty. IMPRESSION: 1. Persistent opacities in the right mid to lower and left lower lung zones consistent with small luke ateral pleural effusions and associated atelectasis and/or pneumonia. Reviewed, dictated and finalized at location A. IMPRESSION: 1. Persistent opacities in the right mid to lower and left lower lung zones con sistent with small bilateral pleural effusions and associated atelectasis and/o r pneumonia.
--- NOTE | ~2021-05-18 | CT_ITS ---
EXAMINATION: CT diagnostic chest w con EXAM DATE: 05/30/2021 10:49 INDICATION: Emphysema. TECHNIQUE: Spiral CT of the chest following intravenous injection of 75 mL Omnipaque 350. Axial, cor onal and sagittal images of the chest were reviewed. Coronal maximum intensity pixel images of chest reviewed. The dose-length product (DLP) for this examination was 115.79 mGy-cm. The exposure was t ailored according to patient size (auto mA exposure control), and iterative reconstruction (ASIR) was used as additional dose reduction technique. Comparison is made to prior examination from 05/20/2021. FINDINGS: There is moderate right pleural effusion, with loculations and adjacent atelectasis. There is also small amount of gas within the right pleural cavity, a hydropneumothorax. The air component d oes not appear to be contributing to the amount of right lung atelectasis and could be iatrogenic fro m thoracentesis performed yesterday. Diffuse mild right pleural thickening, consistent with empyema o r chronic effusion. There is right middle lobe bronchiectasis and atelectasis. Previously seen right lower lobe predominant pneumonia has improved. There are chronic spiculated left lung and right lower lobe opacities unchanged. Moderate emphysema. Tracheobronchial tree is patent. No central pulmonary emboli. Mildly enlarged precarinal lymph node u nchanged, with calcification. Mild cardiomegaly There is mild to moderate coronary arterial calcifi cation, arterial sclerosis. Upper abdomen is unremarkable. There is moderate thoracic spondylosis without osteoblastic or osteolytic lesions identified. There is pain pump catheter tip at T11-12 leve l. There is L1 vertebroplasty. IMPRESSION: 1. Moderate sized right pleural effusion with loculations, small amount of gas (hydropneumothorax). Pleural thickening suggests this is chronic or empyema. 2. Improvement in pneumonia. 3. Right middle lobe bronchiectasis, collapse. 4. Multifocal atelectasis. 5. Small left pleural effusion. 6. Moderate emphysema. 7. Chronic spiculated opacities. 8. Cardiomegaly. 9. Mediastinal lymphadenopathy, probably reactive. Reviewed, dictated and finalized at location B.
--- NOTE | ~2021-05-18 | XR_ITS ---
MODIFIED ESOPHAGRAM HISTORY: Choking TECHNIQUE: Modified barium esophagram was performed on 05/21/2021. I administered fluoroscopy and perfo rmed the exam with speech pathologist. Patient was seated for lateral fluoroscopic imaging for inges tion of thin liquids, pudding, solids and quantified amounts, followed by thin liquids in uncontrolle d amounts. This was recorded on tape. A single fluoroscopic spot image was also recorded. The DAP for this procedure was 2.465 Gycm2. The amount of fluoroscopy time used during this procedure was 3.2 mi nutes. FINDINGS: Oral stage: Adequate function. Pharyngeal stage: One episode of silent trace aspiration with thin liquids presented with a straw. Cervical/esophageal stage: Adequate function. IMPRESSION: Single episode of silent trace aspiration with thin liquids during swallow with a straw. Please correlate with speech pathologist findings and specific feeding recommendations. Reviewed, dictated and finalized at location A. IMPRESSION: Single episode of silent trace aspiration with thin liquids during swallow with a straw. Please correlate with speech pathologist findings and sp ecific feeding recommendations.
--- NOTE | ~2021-05-18 | XR_ITS ---
EXAMINATION: XR chest 1V portable DATE: 05/23/2021 05:40 INDICATION: Shortness of breath. TECHNIQUE: A single frontal view of the chest was obtained. COMPARISON: Chest single view 05/22/2021, chest CT 05/20/2021 FINDINGS: There are lucencies in the lungs, consistent with emphysema. There is a moderate-sized locu lated right pleural effusion. There is a small left pleural effusion. There is mild scarring at the l alfredo apices. There are patchy airspace opacities in right lung and left mid and lower lung zones. No p neumothorax. The heart size is normal. There are changes of vertebroplasty in lumbar spine. IMPRESSION: 1. Stable moderate-sized loculated right pleural effusion and small left pleural effusion. 2. Airspace opacities in right lung and left mid and lower lung zones with worsening at left lung bas e, consistent with pneumonia and atelectasis. 3. Emphysema. Reviewed, dictated and finalized at location A. IMPRESSION: 1. Stable moderate-sized loculated right pleural effusion and small left pleura l effusion. 2. Airspace opacities in right lung and left mid and lower lung zones with wors ening at left lung base, consistent with pneumonia and atelectasis. 3. Emphysema.
--- NOTE | ~2021-05-18 | XR_ITS ---
EXAMINATION: XR chest 1V portable DATE: 05/18/2021 20:09 INDICATION: Shortness of breath. TECHNIQUE: A single frontal view of the chest was obtained. COMPARISON: Chest single view 02/27/2021, chest CT 02/28/2021 FINDINGS: There are lucencies in the lungs, consistent with emphysema. There are airspace opacities i n the mid and lower lung zones, worst in right lower lung zone. No pleural effusion or pneumothorax. The heart size is normal. There are changes of vertebroplasty in lumbar spine. IMPRESSION: 1. Airspace opacities in the mid and lower lung zones, right worse than left with interval worsening on the right, consistent with pneumonia. 2. Emphysema. Reviewed, dictated and finalized at location A. IMPRESSION: 1. Airspace opacities in the mid and lower lung zones, right worse than left wi th interval worsening on the right, consistent with pneumonia. 2. Emphysema.
--- NOTE | ~2021-05-18 | CT_ITS ---
EXAMINATION:CT chest high resolution wo co DATE: 05/20/2021 09:21 INDICATION: Lung opacity. Abnormal chest radiograph. TECHNIQUE: Computed tomography (CT) of the chest was performed without intravenous contrast. Automate d exposure control and iterative reconstruction technique were employed. The dose-length product (DLP ) was 124.34 mGy-cm. COMPARISON: Chest CT 02/28/2021, 11/09/20, 08/21/17, chest single view 05/18/2021 FINDINGS: There is moderate emphysema. Calcified right lung nodules and calcified right hilar and med iastinal lymph nodes are consistent with old granulomatous disease. There is a small left pleural eff usion. There is a moderate-sized loculated right pleural effusion. There are airspace opacities throu ghout right middle lobe. There are airspace opacities in posterior segment right upper lobe. There ar e peripheral airspace opacities in right lower lobe. There are chronic nodules and small airspace opa cities in left upper lobe and left lower lobe. Cardiomegaly is noted. There are coronary artery calci fications. No pericardial effusion. There is mild bilateral hilar lymphadenopathy, likely reactive. C alcifications in the spleen are consistent with old granulomatous disease. An intrathecal catheter is noted. There is severe thoracic spondylosis. There is mild chronic height loss of multiple vertebral bodies. There are changes of vertebroplasty at L1. IMPRESSION: 1. Right-sided pneumonia, worst in right middle lobe. 2. Chronic nodules and small airspace opacities in left lung, consistent with chronic infection. 3. Moderate-sized loculated right pleural effusion. Small left pleural effusion. 4. Moderate emphysema. 5. Mild bilateral hilar lymphadenopathy, likely reactive. Reviewed, dictated and finalized at location A. IMPRESSION: 1. Right-sided pneumonia, worst in right middle lobe. 2. Chronic nodules and small airspace opacities in left lung, consistent with c hronic infection. 3. Moderate-sized loculated right pleural effusion. Small left pleural effusion . 4. Moderate emphysema. 5. Mild bilateral hilar lymphadenopathy, likely reactive.
--- NOTE | 2021-05-18 20:14 | ED.SOB ---
HPI - SOB/Dyspnea General Chief Complaint: Shortness of Breath/Dyspnea Stated Complaint: SOB X 2-3 DAYS, COUGH, [id number] Time Seen by Provider: 05/18/21 19:55 History of Present Illness HPI Narrative: Patient presents with shortness of breath and chest pain. Reports a history of COPD and reports multiple prior hospitalizations for COPD exacerbations. She reports her symptoms feel similar to prior episodes have been getting worse over the past couple weeks. She reports increasing cough again worsening shortness of breath and diffuse chest pain. Pain is burning and crushing worse with deep inspiration no radiation and constant. She denies fevers she has no known sick contacts reports she was vaccinated against Covid. Related Data Home Medications Medication Instructions Recorded Confirmed amiodarone 200 mg tablet 200 mg PO DAILY tablet 01/17/21 05/19/21 Alphagan P 1 drp EACH EYE BID 02/28/21 05/19/21 latanoprost 1 drp EACH EYE BID 02/28/21 05/19/21 morphine 15 mg PO Q8H 02/28/21 05/19/21 metformin 500 mg PO DAILY 05/19/21 05/19/21 metoprolol succinate 50 mg PO DAILY 05/19/21 05/19/21 solifenacin [Vesicare] 5 mg PO DAILY 05/19/21 05/19/21 Allergies Allergy/AdvReac Type Severity Reaction Status Date / Time metoclopramide Allergy Severe TONGUE Verified 04/19/21 14:13 SWELLING Penicillins Allergy Mild Pruritic Verified 04/19/21 14:13 rash meperidine Allergy Unknown Unknown Verified 04/19/21 14:13 Sulfa (Sulfonamide Allergy Unknown Unknown Verified 04/19/21 14:13 Antibiotics) sulfanilamide Allergy Unknown unknown Verified 04/19/21 14:13 Review of Systems Review of Systems: CONSTITUTIONAL: Denies fever, chills, or sweats. EYES: Denies visual changes, redness, or discharge. ENT: Denies rhinorrhea, congestion, sore throat, or otalgia. CARDIOVASCULAR: Reports chest pain denies palpitations. RESPIRATORY: Reports cough and shortness of breath GASTROINTESTINAL: Denies abdominal pain, nausea, vomiting, or diarrhea. GENITOURINARY: Denies dysuria or hematuria. SKIN: Denies rash or itching. MUSCULOSKELETAL: Denies back pain, joint pain, or myalgia. NEUROLOGIC: Denies headache, numbness, dizziness, or weakness. PSYCHIATRIC: Denies anxiety or depression. 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) Essential hypertension History of cerebrovascular accident with current residual effects Multiple lung nodules Non-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 Other osteoporosis without current pathological fracture Other specified depressive episodes Peripheral artery disease Personal history of (healed) traumatic fracture Post traumatic stress disorder (PTSD) Post-traumatic stress disorder, chronic Presence of pancreatic duct stent (~1995) Primary insomnia Recurrent major depressive disorder, 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 Unspecified chronic gastritis without bleeding Surgical History Surgical History H/O: hysterectomy (~1970) Removal of tumors, cysts and adhesions History of angioplasty of peripheral vessel 01/31: stent left pop/SFA History of appendectomy (~1962) History of cholecystectomy (~1962) History of hip replacement 2017 - Right History of laparoscopy 1997 - for adhesionolysis History of laparotomy 1966, 1968 - tumor excision 1972 - hysterectomy History of lumbosacral spine surgery 1977, 1978, 1992, 1993, Hx of sinus surgery 1984, 1985 Family History Family History Father Family history of diabetes mellitus in first degree relative Patient's father is Family history of coronary artery disease Hypertension
[2021-05-18 20:22] LABS: Alveolar/Arterial O2 Gradient 233.6 mmHg; Base Excess ABG -0.9 mEq/l (+/-2.0); Fractional Inspired Oxygen 44 %; HCO3 ABG 23.3 mEq/l (22.0-26.0); Oxygen Content ABG 11.6 %vol (16.0-22.0); Oxyhemoglobin 70.4 % THb (90.0-100.0); PCO2 ABG 36.9 mmHg (35.0-45.0); PO2 FiO2 Ratio Arterial Blood 0.87 %; Total Hemoglobin 11.7 g/dL (12.0-18.0); pH ABG 7.418 (7.350-7.450)
[2021-05-18 20:24] LABS: PO2 ABG 38.1 mmHg (80.0-100.0)
[2021-05-18 20:25] LABS: Modified Allen's Test Pass; Oxygen Saturation ABG 73.6 % (95.0-100.0); Site Drawn RIGHT RADIAL
[2021-05-18 20:26] LABS: Device NASAL CANNULA
[2021-05-18] MEDS: ALBUTEROL SULFATE NEB 2.5 MG/0.5 ML INH 5 MG INHALATION ×3 (20:30→21:44)
[2021-05-18 20:45] LABS: Basophils Percent Auto 0.1 % (0.2-1.2); Eosinophils Absolute Auto 1.5 K/mm3 (0-0.3); Eosinophils Percent Auto 3.3 % (0-4.4); Hematocrit 35.2 % (37.0-47.0); Hemoglobin 11.1 g/dL (12.0-15.0); Immature Granulocyte Absolute 0.98 K/mm3 (0.00-0.031); Immature Granulocyte Percent A 2.2 % (0-0.5); Lymphocytes Absolute Auto 1.04 K/mm3 (0.9-3.2); Lymphocytes Percent Auto 2.4 % (18.3-44.2); Mean Corpuscular HGB Conc 31.5 g/dl (32-36); Mean Corpuscular Hemoglobin 25.5 pg (26-34); Mean Corpuscular Volume 80.7 fl (80-100); Mean Platelet Volume 8.8 fl (7.4-10.4); Monocytes Absolute Auto 1.6 K/mm3 (0.1-0.6); Monocytes Percent Auto 3.6 % (2.6-8.5); Neutrophils Absolute Auto 39.2 K/mm3 (1.3-6.7); Neutrophils Percent Auto 88.4 % (45.5-73.1); Platelet Count Result 717 k/mm3 (150-375); Red Blood Count 4.36 M/mm3 (4.2-5.4); White Blood Count 44.2 K/mm3 (4.5-10.0)
[2021-05-18 20:56] LABS: Anion Gap 4 mmol/L (8-16); Blood Urea Nitrogen 17 mg/dL (7-17); Calcium 7.9 mg/dL (8.4-10.2); Carbon Dioxide 30 mmol/L (22-30); Chloride 91 mmol/L (98-107); Estimated CRCL calculation 37 ml/min; Estimated Glomerular Filt Rate > 60; Glucose 129 mg/dL (65-110); Potassium 4.2 mmol/L (3.4-5.0); Sodium 125 mmol/L (137-145)
[2021-05-18 21:02] LABS: Alanine Aminotransferase 28 U/L (4-35); Albumin Level 2.7 g/dL (3.5-5.1); Alkaline Phosphatase 226 U/L (38-126); Aspartate Amino Transferase 75 U/L (14-36); Bilirubin,Total 0.6 mg/dL (0.2-1.3)
[2021-05-18] MEDS: IPRATROPIUM BR 0.02% INH SOLN 0.5 MG/2.5 ML VIAL INHALATION ×2 (21:07→21:44)
[2021-05-18] MEDS: SODIUM CHLORIDE 0.9% IV 1,000 ML 999 ML (21:11)
[2021-05-18] MEDS: methylPREDNISolone SOD SUCC 125 MG VIAL IV PUSH (21:12)
--- NOTE | 2021-05-18 21:59 | ECG_ITS ---
Measurements Intervals [place] Rate: 111 P: [place]: 0 QRS: -15 QRSD: 129 T: 109 QT: 305 QTc: 415 Interpretive Statements SINUS TACHYCARDIA BORDERLINE ST-T WAVE ABNORMALITY- HIGH LATERAL LEADS BASELINE ARTIFACT- I, II, III, AVR, AVL, AVF, V1-V6 ABNORMAL ECG Electronically Signed On 05-19-2021 17:06:17 CDT by Buck Friend D.O.
[2021-05-18 22:42] LABS: EDCOVIDSCREEN Negative (Negative)
[2021-05-18 22:58] LABS: PCO2 ABG 44.4 mmHg (35.0-45.0); pH ABG 7.403 (7.350-7.450)
[2021-05-18 22:59] LABS: HCO3 ABG 27.1 mEq/l (22.0-26.0); PO2 ABG 48.6 mmHg (80.0-100.0)
[2021-05-18 23:00] LABS: Alveolar/Arterial O2 Gradient 214.5 mmHg; Oxygen Saturation ABG 84.2 % (95.0-100.0)
[2021-05-18 23:02] LABS: Oxygen Content ABG 84.2 %vol (16.0-22.0); Oxyhemoglobin 81.1 % THb (90.0-100.0); Total Hemoglobin 10.6 g/dL (12.0-18.0)
[2021-05-18 23:03] LABS: Device NASAL CANNULA; Modified Allen's Test Pass; Site Drawn RIGHT RADIAL
--- NOTE | 2021-05-18 23:16 | PM.IMHP ---
H&P: HPI History of Present Illness Date/Time: 05/18/21 23:16 Chief Complaint: SHORTNESS OF BREATH Narrative: THIS IS AN 81-YEAR-OLD FEMALE WITH PAST MEDICAL HISTORY SIGNIFICANT FOR HYPERTENSION, DYSLIPIDEMIA PERIPHERAL NEUROPATHY, COPD, TYPE 2 DIABETES MELLITUS, DEPRESSION, CORONARY ARTERY DISEASE, CHRONIC PAIN, ATRIAL FIBRILLATION RATE CONTROLLED AND ANTICOAGULATED. HISTORY TAKING IS LIMITED DUE TO PATIENT'S MEDICAL CONDITION SHE IS CURRENTLY ON BIPAP. MOST OF THE HISTORY HAS BEEN OBTAINED UPON REVIEWING MEDICAL RECORDS AND SPEAKING TO EMERGENCY ROOM DOCTOR. PATIENT PRESENTED TO EMERGENCY ROOM IN SEVERE RESPIRATORY DISTRESS AND WAS PLACED IMMEDIATELY ON BIPAP. PRELIMINARY WORKUP WAS SIGNIFICANT FOR CHEST X-RAY WITH LUNG INFILTRATE. A CBC SHOWED A WBC COUNT OF 44,000 A PLATELET COUNT OF 700,000 A BLOOD GAS SHOWED A PO2 OF 48. DECISION HAS BEEN MADE TO ADMIT THE PATIENT FOR FURTHER MANAGEMENT AND TREATMENT. 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) Essential hypertension History of cerebrovascular accident with current residual effects Multiple lung nodules Non-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 Other osteoporosis without current pathological fracture Other specified depressive episodes Peripheral artery disease Personal history of (healed) traumatic fracture Post traumatic stress disorder (PTSD) Post-traumatic stress disorder, chronic Presence of pancreatic duct stent (~1995) Primary insomnia Recurrent major depressive disorder, 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 Unspecified chronic gastritis without bleeding Surgical History Surgical History H/O: hysterectomy (~1970) Removal of tumors, cysts and adhesions History of angioplasty of peripheral vessel 01/31: stent left pop/SFA History of appendectomy (~1962) History of cholecystectomy (~1962) History of hip replacement 2017 - Right History of laparoscopy 1997 - for adhesionolysis History of laparotomy 1966, 1968 - tumor excision 1972 - hysterectomy History of lumbosacral spine surgery 1977, 1978, 1992, 1993, Hx of sinus surgery 1984, 1985 Family History Family History Father Family history of diabetes mellitus in first degree relative Patient's father is Family history of coronary artery disease Hypertension Cerebrovascular accident Heart disease Mother Patient's mother is Family history of coronary artery disease Hypertension Cerebrovascular accident Heart disease Sibling Family history of coronary artery disease Hypertension Grandparent Diabetes mellitus Daughter Heart disease Other Family history of arthritis Family history of cardiovascular disease Family history of lung cancer Family history of lupus erythematosus Social History Social History Social History: Ms. Pérez is retired and lives at home in [place] with her , Hans. Tells me she gets around using a walker but has had multiple falls recently. She has smoked cigarettes for over 50 years and has been attempting to quit smoking on and off for the last 5 years but admits still smoking up to 4 cigarettes per day. Drinks about 1 glass of wine per month, denies other substance use. She would like to be full code status but would not like to remain on life support for a long period of time. She designates her daughter, Bettye Maynard, as her surrogate decision maker. PCP: Dr Almanza
[2021-05-19] VITALS (26 sets, daily range): BP systolic 95–126; BP diastolic 37–97; PULSE 76–116; RESP 16–22; TEMP 36.1–36.6; O2SAT 91–100; BMI 16.9
--- NOTE | 2021-05-19 01:12 | PC.NURSE ---
This patient, Mariam Pérez, was admitted to IMU Room 207-01. Patient/family oriented to hospital policies and general routines including ID bracelet, bed and alarms, visiting hours, pain management, procedures, bathroom and other care routines, personal items, smoking policy, room service/diet, and visiting hours. Information on how to activate the Rapid Response Team has been discussed. Patient/Family are encouraged to report perceived risks to care and to ask questions if they do not understand what they are told or what they should do.
[2021-05-19 06:12] LABS: Anion Gap 4 mmol/L (8-16); Blood Urea Nitrogen 18 mg/dL (7-17); Calcium 7.1 mg/dL (8.4-10.2); Carbon Dioxide 27 mmol/L (22-30); Chloride 95 mmol/L (98-107); Estimated CRCL calculation 42 ml/min; Estimated Glomerular Filt Rate > 60; Glucose 148 mg/dL (65-110); Potassium 4.1 mmol/L (3.4-5.0); Sodium 126 mmol/L (137-145)
[2021-05-19 06:23] LABS: Basophils Absolute Auto 0.2 K/mm3 (0.0-0.1); Basophils Percent Auto 0.6 % (0.2-1.2); Hematocrit 31.2 % (37.0-47.0); Hemoglobin 9.4 g/dL (12.0-15.0); Immature Granulocyte Absolute 0.37 K/mm3 (0.00-0.031); Immature Granulocyte Percent A 1.1 % (0-0.5); Immature Platelet Fraction Pct 1.9 % (0.9-11.2); Lymphocytes Absolute Auto 0.76 K/mm3 (0.9-3.2); Lymphocytes Percent Auto 2.3 % (18.3-44.2); Mean Corpuscular HGB Conc 30.1 g/dl (32-36); Mean Corpuscular Hemoglobin 25.2 pg (26-34); Mean Corpuscular Volume 83.6 fl (80-100); Mean Platelet Volume 9.2 fl (7.4-10.4); Monocytes Absolute Auto 0.5 K/mm3 (0.1-0.6); Monocytes Percent Auto 1.4 % (2.6-8.5); Neutrophils Absolute Auto 30.9 K/mm3 (1.3-6.7); Neutrophils Percent Auto 94.6 % (45.5-73.1); Nucleated Red Blood Cells Perc 0.1 % (0.0-0.2); Platelet Count Result 709 k/mm3 (150-375); Red Blood Count 3.73 M/mm3 (4.2-5.4); Red Cell Distribution Width 18.5 % (11.5-14.5); White Blood Count 32.7 K/mm3 (4.5-10.0)
--- NOTE | 2021-05-19 10:10 | PM.IMPN ---
Progress Note: A&P Assessment and Plan (1) Pneumonia: Qualifiers: Laterality: right Lung location: unspecified part of lung Pneumonia type: due to unspecified organism Qualified Code(s): J18.9 - Pneumonia, unspecified organism Code(s): J18.9 - Pneumonia, unspecified organism Status: Acute Assessment and Plan: Admission chest x-ray bilateral infiltrates, right more than left Ceftriaxone and azithromycin initiated 05/18 Obtained blood cultures Sputum culture Urinary antigens CT chest to better define infiltrates BiPAP support and wean to oxygen as tolerated (2) Acute hypoxemic respiratory failure: Code(s): J96.01 - Acute respiratory failure with hypoxia Status: Acute Assessment and Plan: In the setting of bilateral pneumonia, management as above (3) Leukocytosis: Qualifiers: Leukocytosis type: unspecified Qualified Code(s): D72.829 - Elevated white blood cell count, unspecified Code(s): D72.829 - Elevated white blood cell count, unspecified Status: Acute Assessment and Plan: WBC on presentation 44K, in the setting of severe infection and respiratory failure, improving with antibiotic treatment (4) Elevated platelet count: Code(s): R79.89 - Other specified abnormal findings of blood chemistry Status: Acute Assessment and Plan: Possibly reactive secondary to infection Monitor (5) Tobacco abuse: Code(s): Z72.0 - Tobacco use Status: Acute Assessment and Plan: She reports she quit 2 months ago (6) PAF (paroxysmal atrial fibrillation): Code(s): I48.0 - Paroxysmal atrial fibrillation Status: Acute Assessment and Plan: Continue metoprolol Continue anticoagulation with apixaban (7) Protein calorie malnutrition: Qualifiers: Protein-calorie malnutrition severity: unspecified severity Qualified Code(s): E46 - Unspecified protein-calorie malnutrition Code(s): E46 - Unspecified protein-calorie malnutrition Status: Chronic Assessment and Plan: Dietitian evaluation Chronic issue for her likely in the setting of significant comorbid disease (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): Code(s): G40.909 - Epilepsy, unspecified, not intractable, without status epilepticus; I63.9 - Cerebral infarction, unspecified Status: Acute Assessment and Plan: Continue on gabapentin Monitor (9) COPD (chronic obstructive pulmonary disease): Qualifiers: COPD type: unspecified COPD Qualified Code(s): J44.9 - Chronic obstructive pulmonary disease, unspecified Code(s): J44.9 - Chronic obstructive pulmonary disease, unspecified Status: Chronic Assessment and Plan: Continue home inhalers (10) Type 2 diabetes mellitus: Code(s): E11.9 - Type 2 diabetes mellitus without complications Status: Acute Assessment and Plan: Will hold home metformin, resume when stable Accu-Cheks (11) Normocytic anemia: Code(s): D64.9 - Anemia, unspecified Status: Acute Assessment and Plan: Chronic, stable, will check basic indices and repalace as needed. Additional Plan DVT prophylaxis: Apixaban COVID status: Full code Subjective Date/time seen: 05/19/21 10:10 Stable overnight. On BiPAP this morning. She reports her breathing is improved. Denies any new symptoms. Hemodynamically stable. Afebrile. Review of Systems Review of Systems: All systems reviewed & are unremarkable except as noted in HPI and below Exam Narrative: Gen: Alert, NAD, on CPAP Abd: Soft, NT, ND Heart: RRR Lungs: CTAB Ext: No lower extremity edema Objective Data Vital Signs Vital Signs: Vital Signs - 24 hr 05/18/21 19:50 05/18/21 20:30 05/18/21 20:37 Temperature 98.9 F Pulse Rate 115 H 107 H Respiratory Rate 15 22 H 19 Blood Pressure 169/130 H Pulse Oximetry 93 05/18/21 20:46 05/18/21 21:09
[2021-05-19 13:52] LABS: Glucose Point of Care 172 mg/dl (65-105)
[2021-05-19] MEDS: MORPHINE SULFATE (*CRX) 15 MG TABCR PO ×2 (15:07→21:09)
[2021-05-19] MEDS: APIXABAN 2.5 MG TABLET PO (15:38)
[2021-05-19] MEDS: GABAPENTIN 300 MG CAPSULE 600 MG PO ×2 (15:38→21:08)
[2021-05-19] MEDS: FERROUS SULFATE 324 MG TABLET PO (15:38)
[2021-05-19] MEDS: AMIODARONE HCL 200 MG TABLET PO (15:38)
[2021-05-19 16:57] LABS: Glucose Point of Care 146 mg/dl (65-105)
[2021-05-19 20:50] LABS: Glucose Point of Care 150 mg/dl (65-105)
[2021-05-19] MEDS: LATANOPROST 0.005% OP SOLN 2.5 ML BTL 1 DROP EACH EYE (21:06)
[2021-05-19] MEDS: BRIMONIDINE TARTRATE 0.1% 5 ML OPHTH DROPS 1 DROP EACH EYE (21:07)
[2021-05-19] MEDS: ATORVASTATIN 40 MG TABLET PO (21:09)
[2021-05-20] VITALS (24 sets, daily range): BP systolic 108–149; BP diastolic 44–80; PULSE 64–114; RESP 15–26; TEMP 36.4–37.1; O2SAT 85–99
[2021-05-20 05:37] LABS: Basophils Absolute Auto 0.1 K/mm3 (0.0-0.1); Basophils Percent Auto 0.4 % (0.2-1.2); Hematocrit 34.2 % (37.0-47.0); Hemoglobin 9.6 g/dL (12.0-15.0); Immature Granulocyte Absolute 0.25 K/mm3 (0.00-0.031); Immature Reticulocyte Fraction 23.9 % (3.0-15.9); Lymphocytes Absolute Auto 0.99 K/mm3 (0.9-3.2); Mean Corpuscular HGB Conc 28.1 g/dl (32-36); Mean Corpuscular Hemoglobin 25.1 pg (26-34); Mean Corpuscular Volume 89.5 fl (80-100); Mean Platelet Volume 8.9 fl (7.4-10.4); Monocytes Percent Auto 3.9 % (2.6-8.5); Neutrophils Absolute Auto 22.5 K/mm3 (1.3-6.7); Neutrophils Percent Auto 90.7 % (45.5-73.1); Platelet Count Result 636 k/mm3 (150-375); Red Blood Count 3.82 M/mm3 (4.2-5.4); Red Cell Distribution Width 18.8 % (11.5-14.5); Reticulocyte Hemoglobin Conten 26.4 pg (28.2-35.7); Reticulocyte Percent 2.46 % (0.7-4.3); Reticulocytes Absolute 0.09 B/L (32.2-175.7); White Blood Count 24.8 K/mm3 (4.5-10.0)
[2021-05-20] MEDS: MORPHINE SULFATE (*CRX) 15 MG TABCR PO ×3 (05:58→21:01)
[2021-05-20 06:00] LABS: Iron < 10 ug/dL (37-170)
[2021-05-20 06:05] LABS: Anion Gap 5 mmol/L (8-16); Blood Urea Nitrogen 16 mg/dL (7-17); Calcium 7.6 mg/dL (8.4-10.2); Carbon Dioxide 27 mmol/L (22-30); Chloride 100 mmol/L (98-107); Estimated CRCL calculation 50 ml/min; Estimated Glomerular Filt Rate > 60; Glucose 107 mg/dL (65-110); Potassium 4.1 mmol/L (3.4-5.0); Sodium 132 mmol/L (137-145)
[2021-05-20 06:17] LABS: Percent Iron Saturation < 6 % (20-50)
[2021-05-20 07:11] LABS: Folic Acid 7.9 ng/mL (2.76->20)
[2021-05-20 07:47] LABS: Glucose Point of Care 126 mg/dl (65-105)
[2021-05-20] MEDS: FERROUS SULFATE 324 MG TABLET PO ×2 (08:11→18:06)
[2021-05-20] MEDS: METOPROLOL SUCCINATE EXT REL 50 MG TABCR PO (08:12)
[2021-05-20] MEDS: GABAPENTIN 300 MG CAPSULE 600 MG PO ×4 (08:12→20:50)
[2021-05-20] MEDS: MAGNESIUM OXIDE 400 MG TABLET PO (08:14)
[2021-05-20] MEDS: SOLIFENACIN 5 MG TABLET PO (08:14)
[2021-05-20] MEDS: BRIMONIDINE TARTRATE 0.1% 5 ML OPHTH DROPS 1 DROP EACH EYE ×2 (08:15→20:50)
[2021-05-20] MEDS: APIXABAN 2.5 MG TABLET PO ×2 (08:15→18:06)
[2021-05-20] MEDS: AMIODARONE HCL 200 MG TABLET PO (08:15)
[2021-05-20] MEDS: SERTRALINE HCL 25 MG TABLET PO (08:25)
--- NOTE | 2021-05-20 08:46 | PM.IMPN ---
Progress Note: A&P Assessment and Plan (1) Pneumonia: Qualifiers: Laterality: right Lung location: unspecified part of lung Pneumonia type: due to unspecified organism Qualified Code(s): J18.9 - Pneumonia, unspecified organism Code(s): J18.9 - Pneumonia, unspecified organism Status: Acute Assessment and Plan: Admission chest x-ray bilateral infiltrates, right more than left Ceftriaxone and azithromycin initiated 05/18 Obtained blood cultures Sputum culture Urinary antigens CT chest to better define infiltrates BiPAP support and wean to oxygen as tolerated (2) Acute hypoxemic respiratory failure: Code(s): J96.01 - Acute respiratory failure with hypoxia Status: Acute Assessment and Plan: In the setting of bilateral pneumonia, management as above (3) Leukocytosis: Qualifiers: Leukocytosis type: unspecified Qualified Code(s): D72.829 - Elevated white blood cell count, unspecified Code(s): D72.829 - Elevated white blood cell count, unspecified Status: Acute Assessment and Plan: WBC on presentation 44K, in the setting of severe infection and respiratory failure, improving with antibiotic treatment (4) Elevated platelet count: Code(s): R79.89 - Other specified abnormal findings of blood chemistry Status: Acute Assessment and Plan: Possibly reactive secondary to infection, improved Monitor (5) Tobacco abuse: Code(s): Z72.0 - Tobacco use Status: Acute Assessment and Plan: She reports she quit 2 months ago (6) PAF (paroxysmal atrial fibrillation): Code(s): I48.0 - Paroxysmal atrial fibrillation Status: Acute Assessment and Plan: Continue metoprolol, titrate dose for better rate control Continue amiodarone Continue anticoagulation with apixaban (7) Protein calorie malnutrition: Qualifiers: Protein-calorie malnutrition severity: unspecified severity Qualified Code(s): E46 - Unspecified protein-calorie malnutrition Code(s): E46 - Unspecified protein-calorie malnutrition Status: Chronic Assessment and Plan: Dietitian evaluation Chronic issue for her likely in the setting of significant comorbid disease (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): Code(s): G40.909 - Epilepsy, unspecified, not intractable, without status epilepticus; I63.9 - Cerebral infarction, unspecified Status: Acute Assessment and Plan: Continue on gabapentin Monitor (9) COPD (chronic obstructive pulmonary disease): Qualifiers: COPD type: unspecified COPD Qualified Code(s): J44.9 - Chronic obstructive pulmonary disease, unspecified Code(s): J44.9 - Chronic obstructive pulmonary disease, unspecified Status: Chronic Assessment and Plan: Continue home inhalers Given her wheezing and productive cough, possible superimposed COPD exacerbation, will give a course of prednisone along with neb treatments with close monitoring. (10) Type 2 diabetes mellitus: Code(s): E11.9 - Type 2 diabetes mellitus without complications Status: Acute Assessment and Plan: Will hold home metformin, resume when stable Accu-Cheks (11) Normocytic anemia: Code(s): D64.9 - Anemia, unspecified Status: Acute Assessment and Plan: Chronic, stable, anemia indices indicate iron deficiency. Continue iron supplementation. (12) Hypertension: Code(s): I10 - Essential (primary) hypertension Status: Acute Assessment and Plan: Hold amlodipine to allow for titration of metoprolol for rate control. Subjective Date/time seen: 05/20/21 08:46 On BiPAP through the night. This morning alert and seems to be somewhat better than yesterday. She feels her breathing is about the same. Hemodynamically stable. Heart rate at times up to 110s in atrial fibrillation. Review of Systems Review of Systems: All systems
[2021-05-20] MEDS: METOPROLOL SUCCINATE EXT REL 25 MG TABCR PO (10:54)
[2021-05-20 11:42] LABS: Glucose Point of Care 147 mg/dl (65-105)
[2021-05-20] MEDS: WATER FOR IRRIGATION, STERILE 1,000 ML BOTTLE 1000 ML (12:14)
[2021-05-20 16:34] LABS: Glucose Point of Care 149 mg/dl (65-105)
[2021-05-20] MEDS: methylPREDNISolone SOD SUCC 125 MG VIAL 60 MG IV PUSH (18:50)
[2021-05-20 20:07] LABS: Glucose Point of Care 154 mg/dl (65-105)
[2021-05-20] MEDS: ALBUTEROL SULFATE NEB 2.5 MG/0.5 ML INH INHALATION (20:36)
[2021-05-20] MEDS: IPRATROPIUM BR 0.02% INH SOLN 0.5 MG/2.5 ML VIAL INHALATION (20:36)
[2021-05-20] MEDS: LATANOPROST 0.005% OP SOLN 2.5 ML BTL 1 DROP EACH EYE (20:50)
[2021-05-20] MEDS: ATORVASTATIN 40 MG TABLET PO (20:50)
[2021-05-21] VITALS (27 sets, daily range): BP systolic 91–179; BP diastolic 55–85; PULSE 61–82; RESP 16–28; TEMP 36.1–36.8; O2SAT 85–97
[2021-05-21] MEDS: ALBUTEROL SULFATE NEB 2.5 MG/0.5 ML INH INHALATION ×4 (02:45→20:28)
[2021-05-21] MEDS: IPRATROPIUM BR 0.02% INH SOLN 0.5 MG/2.5 ML VIAL INHALATION ×4 (02:45→20:28)
[2021-05-21] MEDS: MORPHINE SULFATE (*CRX) 15 MG TABCR PO ×3 (05:29→21:20)
[2021-05-21 05:34] LABS: Basophils Absolute Auto 0.1 K/mm3 (0.0-0.1); Basophils Percent Auto 0.3 % (0.2-1.2); Eosinophils Percent Auto 0.1 % (0-4.4); Hematocrit 31.9 % (37.0-47.0); Hemoglobin 9.9 g/dL (12.0-15.0); Immature Granulocyte Absolute 0.23 K/mm3 (0.00-0.031); Immature Granulocyte Percent A 0.8 % (0-0.5); Lymphocytes Absolute Auto 0.88 K/mm3 (0.9-3.2); Lymphocytes Percent Auto 3.1 % (18.3-44.2); Mean Corpuscular Hemoglobin 25.3 pg (26-34); Mean Corpuscular Volume 81.4 fl (80-100); Mean Platelet Volume 9.1 fl (7.4-10.4); Monocytes Absolute Auto 0.4 K/mm3 (0.1-0.6); Monocytes Percent Auto 1.5 % (2.6-8.5); Neutrophils Absolute Auto 26.5 K/mm3 (1.3-6.7); Neutrophils Percent Auto 94.2 % (45.5-73.1); Platelet Count Result 573 k/mm3 (150-375); Red Blood Count 3.92 M/mm3 (4.2-5.4); Red Cell Distribution Width 18.3 % (11.5-14.5); White Blood Count 28.1 K/mm3 (4.5-10.0)
[2021-05-21 05:48] LABS: Anion Gap 3 mmol/L (8-16); Blood Urea Nitrogen 15 mg/dL (7-17); Calcium 7.6 mg/dL (8.4-10.2); Carbon Dioxide 30 mmol/L (22-30); Chloride 98 mmol/L (98-107); Estimated CRCL calculation 50 ml/min; Estimated Glomerular Filt Rate > 60; Glucose 145 mg/dL (65-110); Potassium 4.7 mmol/L (3.4-5.0); Sodium 131 mmol/L (137-145)
[2021-05-21 06:57] LABS: Platelet Estimate Adequate (Adequate); Poikilocytosis 1+ (NORMAL); Schistocytes 1+ (NORMAL)
[2021-05-21 08:53] LABS: Glucose Point of Care 130 mg/dl (65-105)
--- NOTE | 2021-05-21 08:55 | PM.IMPN ---
Progress Note: A&P Assessment and Plan (1) Pneumonia: Qualifiers: Laterality: right Lung location: unspecified part of lung Pneumonia type: due to unspecified organism Qualified Code(s): J18.9 - Pneumonia, unspecified organism Code(s): J18.9 - Pneumonia, unspecified organism Status: Acute Assessment and Plan: Admission chest x-ray bilateral infiltrates, right more than left Ceftriaxone and azithromycin initiated 05/18 Blood cultures NTD Sputum culture GPCs Urinary antigens pending CT chest to better define infiltrates BiPAP support and wean to oxygen as tolerated She did have some coughing with oral intake, swallow eval and assess for aspiration (2) Acute hypoxemic respiratory failure: Code(s): J96.01 - Acute respiratory failure with hypoxia Status: Acute Assessment and Plan: In the setting of bilateral pneumonia, management as above (3) Leukocytosis: Qualifiers: Leukocytosis type: unspecified Qualified Code(s): D72.829 - Elevated white blood cell count, unspecified Code(s): D72.829 - Elevated white blood cell count, unspecified Status: Acute Assessment and Plan: WBC on presentation 44K, in the setting of severe infection and respiratory failure, improving with antibiotic treatment, now slight increase after initiation steroids yesterday (4) Elevated platelet count: Code(s): R79.89 - Other specified abnormal findings of blood chemistry Status: Acute Assessment and Plan: Possibly reactive secondary to infection, improved Monitor (5) Tobacco abuse: Code(s): Z72.0 - Tobacco use Status: Acute Assessment and Plan: She reports she quit 2 months ago (6) PAF (paroxysmal atrial fibrillation): Code(s): I48.0 - Paroxysmal atrial fibrillation Status: Acute Assessment and Plan: Continue metoprolol, titrate dose for better rate control Continue amiodarone Continue anticoagulation with apixaban (7) Protein calorie malnutrition: Qualifiers: Protein-calorie malnutrition severity: unspecified severity Qualified Code(s): E46 - Unspecified protein-calorie malnutrition Code(s): E46 - Unspecified protein-calorie malnutrition Status: Chronic Assessment and Plan: Dietitian evaluation Chronic issue for her likely in the setting of significant comorbid disease (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): Code(s): G40.909 - Epilepsy, unspecified, not intractable, without status epilepticus; I63.9 - Cerebral infarction, unspecified Status: Acute Assessment and Plan: Continue on gabapentin Monitor (9) COPD (chronic obstructive pulmonary disease): Qualifiers: COPD type: unspecified COPD Qualified Code(s): J44.9 - Chronic obstructive pulmonary disease, unspecified Code(s): J44.9 - Chronic obstructive pulmonary disease, unspecified Status: Chronic Assessment and Plan: Continue home inhalers Given her wheezing and productive cough, possible superimposed COPD exacerbation, will give a course of prednisone along with neb treatments with close monitoring. Methyl Pred 05/20- (10) Type 2 diabetes mellitus: Code(s): E11.9 - Type 2 diabetes mellitus without complications Status: Acute Assessment and Plan: Will hold home metformin, resume when stable Accu-Cheks (11) Normocytic anemia: Code(s): D64.9 - Anemia, unspecified Status: Acute Assessment and Plan: Chronic, stable, anemia indices indicate iron deficiency. Continue iron supplementation. (12) Hypertension: Code(s): I10 - Essential (primary) hypertension Status: Acute Assessment and Plan: Hold amlodipine to allow for titration of metoprolol for rate control. Subjective Date/time seen: 05/21/21 08:55 On BiPAP overnight, this morning oxygen by nasal cannula 5 L. she looks more comfortable. She feels her carroll
[2021-05-21] MEDS: AMIODARONE HCL 200 MG TABLET PO (09:54)
[2021-05-21] MEDS: APIXABAN 2.5 MG TABLET PO ×2 (09:55→15:54)
[2021-05-21] MEDS: FERROUS SULFATE 324 MG TABLET PO ×2 (09:55→15:54)
[2021-05-21] MEDS: GABAPENTIN 300 MG CAPSULE 600 MG PO ×4 (09:55→21:20)
[2021-05-21] MEDS: MAGNESIUM OXIDE 400 MG TABLET PO (09:56)
[2021-05-21] MEDS: SOLIFENACIN 5 MG TABLET PO (09:56)
[2021-05-21] MEDS: SERTRALINE HCL 25 MG TABLET PO (09:56)
[2021-05-21] MEDS: METOPROLOL SUCCINATE EXT REL 25 MG TABCR 75 MG PO (09:56)
[2021-05-21] MEDS: BRIMONIDINE TARTRATE 0.1% 5 ML OPHTH DROPS 1 DROP EACH EYE ×2 (09:57→21:21)
--- NOTE | 2021-05-21 10:00 | PCSTNOTE ---
Please refer to the Bedside Swallow Evaluation in the EMR. Please note, silent aspiration cannot be ruled out at bedside.
[2021-05-21] MEDS: methylPREDNISolone SOD SUCC 125 MG VIAL 60 MG IV PUSH (11:33)
--- NOTE | 2021-05-21 11:56 | PCSTNOTE ---
Please refer to the Modified Barium Swallow Evaluation in the EMR.
[2021-05-21] MEDS: MENTHOL 10% / METHYL SALICYLATE 15% 57 GM TUBE 1 APPLIC TOPICAL ×2 (12:16→21:22)
[2021-05-21 12:30] LABS: Glucose Point of Care 236 mg/dl (65-105)
[2021-05-21 17:38] LABS: Glucose Point of Care 178 mg/dl (65-105)
[2021-05-21 20:30] LABS: Glucose Point of Care 197 mg/dl (65-105)
[2021-05-21] MEDS: LATANOPROST 0.005% OP SOLN 2.5 ML BTL 1 DROP EACH EYE (21:21)
[2021-05-21] MEDS: ATORVASTATIN 40 MG TABLET PO (21:21)
[2021-05-22] VITALS (25 sets, daily range): BP systolic 103–131; BP diastolic 49–78; PULSE 62–78; RESP 16–22; TEMP 36.1–36.5; O2SAT 89–99
[2021-05-22] MEDS: ALBUTEROL SULFATE NEB 2.5 MG/0.5 ML INH INHALATION ×4 (01:57→21:21)
[2021-05-22] MEDS: IPRATROPIUM BR 0.02% INH SOLN 0.5 MG/2.5 ML VIAL INHALATION ×4 (01:57→21:21)
[2021-05-22] MEDS: MORPHINE SULFATE (*CRX) 15 MG TABCR PO ×3 (05:30→22:14)
[2021-05-22 06:05] LABS: Basophils Absolute Auto 0.1 K/mm3 (0.0-0.1); Basophils Percent Auto 0.2 % (0.2-1.2); Hematocrit 32.1 % (37.0-47.0); Hemoglobin 9.6 g/dL (12.0-15.0); Immature Granulocyte Absolute 0.27 K/mm3 (0.00-0.031); Immature Granulocyte Percent A 1.1 % (0-0.5); Lymphocytes Absolute Auto 1.17 K/mm3 (0.9-3.2); Lymphocytes Percent Auto 4.6 % (18.3-44.2); Mean Corpuscular HGB Conc 29.9 g/dl (32-36); Mean Corpuscular Hemoglobin 24.9 pg (26-34); Mean Corpuscular Volume 83.4 fl (80-100); Mean Platelet Volume 9.4 fl (7.4-10.4); Monocytes Percent Auto 3.9 % (2.6-8.5); Neutrophils Absolute Auto 22.9 K/mm3 (1.3-6.7); Neutrophils Percent Auto 90.2 % (45.5-73.1); Platelet Count Result 535 k/mm3 (150-375); Red Blood Count 3.85 M/mm3 (4.2-5.4); Red Cell Distribution Width 18.6 % (11.5-14.5); White Blood Count 25.4 K/mm3 (4.5-10.0)
[2021-05-22] MEDS: FERROUS SULFATE 324 MG TABLET PO ×2 (08:46→17:52)
[2021-05-22] MEDS: SERTRALINE HCL 25 MG TABLET PO (08:46)
[2021-05-22] MEDS: GABAPENTIN 300 MG CAPSULE 600 MG PO ×4 (08:46→20:47)
[2021-05-22] MEDS: SOLIFENACIN 5 MG TABLET PO (08:46)
[2021-05-22] MEDS: METOPROLOL SUCCINATE EXT REL 25 MG TABCR 75 MG PO (08:47)
[2021-05-22] MEDS: AMIODARONE HCL 200 MG TABLET PO (08:47)
[2021-05-22] MEDS: APIXABAN 2.5 MG TABLET PO ×2 (08:47→17:52)
[2021-05-22] MEDS: MAGNESIUM OXIDE 400 MG TABLET PO (08:47)
[2021-05-22] MEDS: BRIMONIDINE TARTRATE 0.1% 5 ML OPHTH DROPS 1 DROP EACH EYE ×2 (08:48→20:50)
[2021-05-22 08:50] LABS: Glucose Point of Care 129 mg/dl (65-105)
--- NOTE | 2021-05-22 11:07 | PM.IMPN ---
Progress Note: A&P Assessment and Plan (1) Pneumonia: Qualifiers: Laterality: right Lung location: unspecified part of lung Pneumonia type: due to unspecified organism Qualified Code(s): J18.9 - Pneumonia, unspecified organism Code(s): J18.9 - Pneumonia, unspecified organism Status: Acute Assessment and Plan: Admission chest x-ray bilateral infiltrates, right more than left Ceftriaxone and azithromycin initiated 05/18 Blood cultures NTD Sputum culture growth of normal saran Urinary antigens pending CT chest to better define infiltrates BiPAP support as needed, now O2 wean as tolerated She did have some coughing with oral intake, swallow eval and assess for aspiration 05/21: Single episode of silent trace aspiration with thin liquids during swallow with a straw. Recommendation per speech therapy: cleared but no straw use. (2) Acute hypoxemic respiratory failure: Code(s): J96.01 - Acute respiratory failure with hypoxia Status: Acute Assessment and Plan: In the setting of bilateral pneumonia, management as above (3) Leukocytosis: Qualifiers: Leukocytosis type: unspecified Qualified Code(s): D72.829 - Elevated white blood cell count, unspecified Code(s): D72.829 - Elevated white blood cell count, unspecified Status: Acute Assessment and Plan: WBC on presentation 44K, in the setting of severe infection and respiratory failure, improving with antibiotic treatment, now slight increase after initiation steroids, monitor (4) Elevated platelet count: Code(s): R79.89 - Other specified abnormal findings of blood chemistry Status: Acute Assessment and Plan: Possibly reactive secondary to infection, improved Monitor (5) Tobacco abuse: Code(s): Z72.0 - Tobacco use Status: Acute Assessment and Plan: She reports she quit 2 months ago (6) PAF (paroxysmal atrial fibrillation): Code(s): I48.0 - Paroxysmal atrial fibrillation Status: Acute Assessment and Plan: Continue metoprolol, titrate dose for better rate control Continue amiodarone Continue anticoagulation with apixaban (7) Protein calorie malnutrition: Qualifiers: Protein-calorie malnutrition severity: unspecified severity Qualified Code(s): E46 - Unspecified protein-calorie malnutrition Code(s): E46 - Unspecified protein-calorie malnutrition Status: Chronic Assessment and Plan: Dietitian evaluation Chronic issue for her likely in the setting of significant comorbid disease (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): Code(s): G40.909 - Epilepsy, unspecified, not intractable, without status epilepticus; I63.9 - Cerebral infarction, unspecified Status: Acute Assessment and Plan: Continue on gabapentin Monitor (9) COPD (chronic obstructive pulmonary disease): Qualifiers: COPD type: unspecified COPD Qualified Code(s): J44.9 - Chronic obstructive pulmonary disease, unspecified Code(s): J44.9 - Chronic obstructive pulmonary disease, unspecified Status: Chronic Assessment and Plan: Continue home inhalers Given her wheezing and productive cough, possible superimposed COPD exacerbation, will give a course of prednisone along with neb treatments with close monitoring. Methyl Pred 05/20- (10) Type 2 diabetes mellitus: Code(s): E11.9 - Type 2 diabetes mellitus without complications Status: Acute Assessment and Plan: Will hold home metformin, resume when stable Accu-Cheks (11) Normocytic anemia: Code(s): D64.9 - Anemia, unspecified Status: Acute Assessment and Plan: Chronic, stable, anemia indices indicate iron deficiency. Continue iron supplementation. (12) Hypertension: Code(s): I10 - Essential (primary) hypertension Status: Acute Assessment and Plan: Hold amlodipine to allow for titration of metoprolo
[2021-05-22 12:19] LABS: Glucose Point of Care 147 mg/dl (65-105)
--- NOTE | 2021-05-22 14:17 | PCDIET ---
Nutrition Follow-Up Complete: Nutrition Diagnosis: Increased energy needs related to COPD as evidenced by BMI of 16.9 and recommended caloric needs of 1,667 calories per day (+500). Nutrition Goal: Patient to meet estimated nutritional needs. Goal in progress. Patient has consumed 43% of recorded meals since 05/20/21 on regular diet. Reports tolerating diet well and taking Ensure Compact. Likes both flavors. Recommend increasing Ensure Compact to TID with meals. Last recorded weight is 43 kg which is increased from last review. +I/O. Bowel Motility: No documented BM as of yet. Labs Reviewed: WBC (25.4), RBC (3.85), Hgb (9.6), Hct (32.1), Glu (147) Meds Noted: Albuterol, Pacerone, Lipitor, Zithromax, Symbicort, Rocephin, Ferrous Sulfate, Atrovent, Mag-Ox, Solu Medrol, Toprol XL, MS Contin Additional Notes: Left heel with ulcer. Will continue to monitor with same goal. Nutrition Monitoring and Evaluation:
[2021-05-22] MEDS: methylPREDNISolone SOD SUCC 125 MG VIAL 60 MG IV PUSH (15:27)
[2021-05-22] MEDS: SILVERGEL (ELTA) 45 ML 1 APPLIC TOPICAL (15:27)
[2021-05-22 16:59] LABS: Glucose Point of Care 126 mg/dl (65-105)
[2021-05-22 18:11] LABS: Pneumococcal Antigen Urine Not Detected (Not Detected)
--- NOTE | 2021-05-22 18:49 | ECG_ITS ---
Measurements Intervals Shepherd Rate: 78 P: 148 OR: 161 QRS: -15 QRSD: 111 T: 129 QT: 391 QTc: 447 Interpretive Statements SINUS OR ECTOPIC ATRIAL RHYTHM INCOMPLETE RIGHT BUNDLE BRANCH BLOCK DELAYED PRECORDIAL R/S TRANSITION BORDERLINE ST-T WAVE ABNORMALITY- HIGH LATERAL LEADS BASELINE ARTIFACT- I, II, III, AVR, AVL, AVF, V1-V3 BORDERLINE ECG Electronically Signed On 05-23-2021 6:19:58 CDT by Buck Friend D.O.
[2021-05-22] MEDS: NITROGLYCERIN SL 0.4 MG TABLET SUBLINGUAL (18:51)
--- NOTE | 2021-05-22 19:14 | PM.CNCAR ---
Assessment and Plan Assessment and plan (1) Chest pain: Code(s): R07.9 - Chest pain, unspecified Status: Acute Assessment and Plan: Elderly lady w/ multiple risk factors for CAD, no h/o CAD, c/o chest pain. The current chest pain is atypical for angina, being pleuritic, and more consistent with her pneumonia. However she has an abnormal EKG with some changes in the high lateral leads as well as T wave inversion in V1 and V2, all of which look new c.t. her admitting EKG. She may be experiencing some left ventricular strain due to her pneumonia and mild hypoxemia; ACS is less likely. Agree with obtaining troponins, adding ASA. Continue Eliquis, metoprolol, statin. (2) Pneumonia: Code(s): J18.9 - Pneumonia, unspecified organism Status: Acute Assessment and Plan: On BiPAP, antibiotics, steroid and inhaler (3) Acute hypoxemic respiratory failure: Code(s): J96.01 - Acute respiratory failure with hypoxia Status: Acute (4) PAF (paroxysmal atrial fibrillation): Code(s): I48.0 - Paroxysmal atrial fibrillation Status: Acute Assessment and Plan: Maintaining NSR on amiodarone, Eliqis and metoprolol Additional Plan Thank you for asking us to participate in the care of your patient. Since Dr. Friend is this patient's usual shirring tender, I will turn care over to him tomorrow. History of Present Illness History of Present Illness Consult date/time: 05/22/21 19:14 Requesting physician: Lupe Lam MD Consult reason: chest pain Reason For Visit: Pneumonia Narrative: Ms. Mariam Pérez is an 81-year-old female whom I was asked to see urgently at the request of Dr. Lam for my advice and opinion regarding her chest pain and abnormal EKG in consultation. Mrs. Pérez was admitted on May 18 with respiratory distress secondary to pneumonia. Her COVID screen was negative. She requires BiPAP. She has had problems with some chest discomfort on the right side off and on, radiating around to her back, and also involving the right shoulder and right trapezius upper back area. She describes it as the pleuritic pain like pleurisy. She is still short of breath. She has a history of hypertension, diabetes, hyperlipidemia, paroxysmal atrial fibrillation, PAD status post stents, followed by Dr. Olmstead, neuropathy, COPD, chronic pain. I see she is followed by Dr. greenberg for her paroxysmal atrial fibrillation, last seen 04/19/2021 stable and maintaining NSR with metoprolol, amiodarone, and Eliquis. Workers Compensation Claims Specialist:: 03/16/21 Aortogram with left extremity angiogram: Occluded SFA stent and high grade significant stenosis of popliteal artery; thrombectomy, PTCA with stenting of popliteal and SFA arteries. Echo/MUGA:: 03/01/21 Echo: EF 55-60%, grade II diastolic dysfunction, severe LAE, mild AI/TR, mod MR, RVSP 55 mmHg. Electrophysiology:: 02/27/21 EKG: Sinus rhythm, borderline ST abnormality in lateral leads, QTc 467 ms. 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 Review of Systems Constitutional: Constitutional: Reports fatigue, Reports lethargy and Reports weakness Eyes: Eyes: Reports no additional eye complaints ENT: Denies epistaxis and Denies nasal congestion Cardiovascular: Cardiovascular: Reports chest pain, Denies pedal edema, Denies leg edema, Denies lightheadedness and Denies palpitations Respiratory: Respiratory: Reports dyspnea and Reports dyspnea on exertion Gastrointestinal: Gastrointestinal: Reports abdominal pain (Has irritable bowel syndrome) Genitourinary: Genitourinary: Denies hematuria Musculoskeletal: Musculoskeletal: Reports back pain and Reports arthralgias Comments: Uses a walker at home Integumentary/Breasts: Skin/Breast: Denies rash Neurologic: Denies confusion Psychiatric: Psychiatric: Denies behavioral changes [facility] Past Medical History Medical History
[2021-05-22 20:32] LABS: Troponin I < 0.012 ng/mL (0.000-0.034)
[2021-05-22 20:44] LABS: Glucose Point of Care 167 mg/dl (65-105)
[2021-05-22] MEDS: ASPIRIN 81 MG CHEWABLE TABLET 324 MG PO (20:48)
[2021-05-22] MEDS: MORPHINE SULFATE (*CRX) 2 MG/ML INJ IV PUSH (20:48)
[2021-05-22] MEDS: ATORVASTATIN 40 MG TABLET PO (20:48)
[2021-05-22] MEDS: LATANOPROST 0.005% OP SOLN 2.5 ML BTL 1 DROP EACH EYE (20:51)
[2021-05-22 22:35] LABS: Troponin I < 0.012 ng/mL (0.000-0.034)
[2021-05-23] VITALS (26 sets, daily range): BP systolic 99–133; BP diastolic 40–57; PULSE 57–71; RESP 16–22; TEMP 36–37.1; O2SAT 91–100
[2021-05-23 02:32] LABS: Basophils Absolute Auto 0.1 K/mm3 (0.0-0.1); Basophils Percent Auto 0.2 % (0.2-1.2); Hematocrit 32.7 % (37.0-47.0); Hemoglobin 10.1 g/dL (12.0-15.0); Immature Granulocyte Absolute 0.25 K/mm3 (0.00-0.031); Immature Granulocyte Percent A 0.9 % (0-0.5); Lymphocytes Absolute Auto 0.85 K/mm3 (0.9-3.2); Lymphocytes Percent Auto 2.9 % (18.3-44.2); Mean Corpuscular HGB Conc 30.9 g/dl (32-36); Mean Corpuscular Hemoglobin 24.9 pg (26-34); Mean Corpuscular Volume 80.7 fl (80-100); Mean Platelet Volume 8.9 fl (7.4-10.4); Monocytes Absolute Auto 0.7 K/mm3 (0.1-0.6); Monocytes Percent Auto 2.3 % (2.6-8.5); Neutrophils Absolute Auto 27.4 K/mm3 (1.3-6.7); Neutrophils Percent Auto 93.7 % (45.5-73.1); Platelet Count Result 574 k/mm3 (150-375); Red Blood Count 4.05 M/mm3 (4.2-5.4); Red Cell Distribution Width 18.3 % (11.5-14.5); White Blood Count 29.2 K/mm3 (4.5-10.0)
[2021-05-23] MEDS: ALBUTEROL SULFATE NEB 2.5 MG/0.5 ML INH INHALATION ×4 (02:47→20:36)
[2021-05-23] MEDS: IPRATROPIUM BR 0.02% INH SOLN 0.5 MG/2.5 ML VIAL INHALATION ×4 (02:47→20:36)
[2021-05-23 03:04] LABS: Troponin I < 0.012 ng/mL (0.000-0.034)
[2021-05-23 03:11] LABS: Anisocytosis 1+ (NORMAL); Hypochromasia 1+ (NORMAL); Platelet Estimate Adequate (Adequate)
[2021-05-23] MEDS: MORPHINE SULFATE (*CRX) 15 MG TABCR PO ×3 (06:09→21:07)
[2021-05-23 09:00] LABS: Glucose Point of Care 102 mg/dl (65-105)
[2021-05-23] MEDS: FERROUS SULFATE 324 MG TABLET PO ×2 (10:32→18:23)
[2021-05-23] MEDS: AMIODARONE HCL 200 MG TABLET PO (10:32)
[2021-05-23] MEDS: APIXABAN 2.5 MG TABLET PO ×2 (10:33→18:23)
[2021-05-23] MEDS: MAGNESIUM OXIDE 400 MG TABLET PO (10:34)
[2021-05-23] MEDS: GABAPENTIN 300 MG CAPSULE 600 MG PO ×4 (10:34→21:07)
[2021-05-23] MEDS: SOLIFENACIN 5 MG TABLET PO (10:35)
[2021-05-23] MEDS: SERTRALINE HCL 25 MG TABLET PO (10:35)
[2021-05-23] MEDS: METOPROLOL SUCCINATE EXT REL 25 MG TABCR 75 MG PO (10:35)
[2021-05-23] MEDS: ASPIRIN 81 MG ENTERIC TABLET PO (10:38)
[2021-05-23] MEDS: BRIMONIDINE TARTRATE 0.1% 5 ML OPHTH DROPS 1 DROP EACH EYE ×2 (10:39→21:08)
[2021-05-23] MEDS: methylPREDNISolone SOD SUCC 125 MG VIAL 60 MG IV PUSH (10:39)
[2021-05-23] MEDS: SILVERGEL (ELTA) 45 ML 1 APPLIC TOPICAL (10:43)
--- NOTE | 2021-05-23 10:50 | PM.PNCARD ---
Progress Note: A&P Assessment and Plan (1) Pneumonia: Code(s): J18.9 - Pneumonia, unspecified organism Status: Acute Assessment and Plan: Managed as per hospitalist. (2) Pleural effusion: Code(s): J90 - Pleural effusion, not elsewhere classified Status: Acute Assessment and Plan: Lasix 20 mg IV BID. (3) PAF (paroxysmal atrial fibrillation): Code(s): I48.0 - Paroxysmal atrial fibrillation Status: Acute Assessment and Plan: In sinus rhythm. On Amiodarone. On Eliquis. (4) Hypertension: Code(s): I10 - Essential (primary) hypertension Status: Acute Assessment and Plan: Stable. (5) Type 2 diabetes mellitus: Code(s): E11.9 - Type 2 diabetes mellitus without complications Status: Acute Assessment and Plan: Management as per hospitalist. (6) Dyslipidemia: Code(s): E78.5 - Hyperlipidemia, unspecified Status: Acute Assessment and Plan: On Atrovastatin. Subjective Date/time seen: 05/23/21 10:50 I am resuming care from Dr. Santillan. Patient is sob. Denies chest pains. Exam Const: General: cooperative Resp: Auscultation: no crackles, no rales, no rhonchi, no wheezes and diminished lung sounds Cardio: Jugular venous distension: no JVD Rate: regular rate Rhythm: regular rhythm Heart sounds: no murmurs Peripheral pulses: dorsalis pedis present GI: GI Palp: No abdominal tenderness and Yes Soft to palpation Neuro: General: oriented to person, oriented to place and oriented to time Extrem: Right lower extremity: no edema Left lower extremity: edema (Mild edema of left leg) Objective Data Vital Signs Vital Signs: Vital Signs - 24 hr 05/22/21 12:00 05/22/21 12:24 05/22/21 14:00 Temperature 97.1 F L Pulse Rate 70 70 71 Respiratory Rate 21 H Blood Pressure 122/49 L Pulse Oximetry 94 95 05/22/21 14:09 05/22/21 14:17 05/22/21 16:00 Temperature Pulse Rate 73 71 72 Respiratory Rate 20 20 Blood Pressure Pulse Oximetry 92 05/22/21 17:04 05/22/21 18:00 05/22/21 18:55 Temperature 97.0 F L Pulse Rate 72 70 78 Respiratory Rate 22 H 21 H Blood Pressure 131/70 Pulse Oximetry 95 93 05/22/21 20:00 05/22/21 21:21 05/22/21 21:32 Temperature 97.6 F Pulse Rate 69 68 69 Respiratory Rate 16 16 16 Blood Pressure 122/76 Pulse Oximetry 90 91 05/22/21 21:52 05/22/21 23:43 05/23/21 00:00 Temperature 97.7 F Pulse Rate 70 67 67 Respiratory Rate 20 20 Blood Pressure 118/62 Pulse Oximetry 99 96 05/23/21 02:00 05/23/21 02:47 05/23/21 02:53 Temperature Pulse Rate 70 61 62 Respiratory Rate 16 16 Blood Pressure Pulse Oximetry 05/23/21 04:00 05/23/21 06:00 05/23/21 07:52 Temperature 97.6 F Pulse Rate 68 66 64 Respiratory Rate 20 16 Blood Pressure 126/53 L Pulse Oximetry 93 05/23/21 07:54 05/23/21 08:01 05/23/21 08:21 Temperature 96.8 F L Pulse Rate 63 63 Respiratory Rate 16 20 Blood Pressure 130/44 L Pulse Oximetry 99 100 05/23/21 08:26 05/23/21 10:32 Temperature Pulse Rate 65 Respiratory Rate Blood Pressure Pulse Oximetry 92 Intake/Output Intake/Output: Intake & Output 05/20/21 05/21/21 05/22/21 05/23/21 23:59 23:59 23:59 23:59 Intake Total 1210 1700 1180 200 Output Total 650 1300 1450 450 Balance 560 400 -270 -250 Meds/Results Medications: Active Medications Generic Name Dose Route Start Last Admin Trade Name Tayler PRN Reason Stop Dose Admin Albuterol 2.5 mg 05/20/21 20:00 05/23/21 07:52 Albuterol Sulfate Neb 2.5 Mg/0.5 Ml Inh INHALATION 2.5 mg Q6HRT CHAY Administration Amiodarone HCl 200 mg 05/19/21 14:29 05/23/21 10:32 Amiodarone Hcl 200 Mg Tablet PO 200 mg DAILY CHAY Administration Apixaban 2.5 mg 05/19/21 17:00 05/23/21 10:33 Apixaban 2.5 Mg Tablet PO 2.5 mg BID CHAY Administration Aspirin 81 mg 05/23/21 09:00 05/23/21 10:38 Aspirin 81 M
[2021-05-23 12:16] LABS: Glucose Point of Care 134 mg/dl (65-105)
--- NOTE | 2021-05-23 13:23 | P.PNIM_ITS ---
Progress Note: A&P Assessment and Plan (1) Pneumonia: Qualifiers: Laterality: right Lung location: unspecified part of lung Pneumonia type: due to unspecified organism Qualified Code(s): J18.9 - Pneumonia, unspecified organism Code(s): J18.9 - Pneumonia, unspecified organism Status: Acute Assessment and Plan: Admission chest x-ray bilateral infiltrates, right more than left Ceftriaxone and azithromycin initiated 05/19 Blood cultures NTD Sputum culture growth of normal saran Urinary antigens pending CT chest to better define infiltrates BiPAP support as needed, now O2 wean as tolerated She did have some coughing with oral intake, swallow eval and assess for aspiration 05/21: Single episode of silent trace aspiration with thin liquids during swallow with a straw. Recommendation per speech therapy: cleared but no straw use. (2) Acute hypoxemic respiratory failure: Code(s): J96.01 - Acute respiratory failure with hypoxia Status: Acute Assessment and Plan: In the setting of bilateral pneumonia, management as above (3) Leukocytosis: Qualifiers: Leukocytosis type: unspecified Qualified Code(s): D72.829 - Elevated white blood cell count, unspecified Code(s): D72.829 - Elevated white blood cell count, unspecified Status: Acute Assessment and Plan: WBC on presentation 44K, in the setting of severe infection and respiratory failure, improving with antibiotic treatment, now slight increase after initiation steroids, monitor (4) Elevated platelet count: Code(s): R79.89 - Other specified abnormal findings of blood chemistry Status: Acute Assessment and Plan: Possibly reactive secondary to infection, improved Monitor (5) Tobacco abuse: Code(s): Z72.0 - Tobacco use Status: Acute Assessment and Plan: She reports she quit 2 months ago (6) PAF (paroxysmal atrial fibrillation): Code(s): I48.0 - Paroxysmal atrial fibrillation Status: Acute Assessment and Plan: Continue metoprolol, titrate dose for better rate control Continue amiodarone Continue anticoagulation with apixaban (7) Protein calorie malnutrition: Qualifiers: Protein-calorie malnutrition severity: unspecified severity Qualified Code(s): E46 - Unspecified protein-calorie malnutrition Code(s): E46 - Unspecified protein-calorie malnutrition Status: Chronic Assessment and Plan: Dietitian evaluation Chronic issue for her likely in the setting of significant comorbid disease (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): Code(s): G40.909 - Epilepsy, unspecified, not intractable, without status epilepticus; I63.9 - Cerebral infarction, unspecified Status: Acute Assessment and Plan: Continue on gabapentin Monitor (9) COPD (chronic obstructive pulmonary disease): Qualifiers: COPD type: unspecified COPD Qualified Code(s): J44.9 - Chronic obstructive pulmonary disease, unspecified Code(s): J44.9 - Chronic obstructive pulmonary disease, unspecified Status: Chronic Assessment and Plan: Continue home inhalers Given her wheezing and productive cough, possible superimposed COPD exacerbation, will give a course of prednisone along with neb treatments with close monitoring. Methyl Pred 05/20- (10) Type 2 diabetes mellitus: Code(s): E11.9 - Type 2 diabetes mellitus without complications Status: Acute Assessment and Plan: Will hold home metformin, resume when stable Check glucose
[2021-05-23] MEDS: FUROSEMIDE INJ 40 MG/4 ML VIAL 20 MG IV PUSH ×2 (13:26→18:24)
[2021-05-23 15:30] LABS: Legionella pneumophila Ag Ur Not Detected (Not Detected)
[2021-05-23 16:46] LABS: Glucose Point of Care 137 mg/dl (65-105)
[2021-05-23 20:18] LABS: Glucose Point of Care 200 mg/dl (65-105)
[2021-05-23] MEDS: ATORVASTATIN 40 MG TABLET PO (21:07)
[2021-05-23] MEDS: LATANOPROST 0.005% OP SOLN 2.5 ML BTL 1 DROP EACH EYE (21:08)
[2021-05-24] VITALS (30 sets, daily range): BP systolic 93–133; BP diastolic 35–47; PULSE 53–74; RESP 16–22; TEMP 36.3–36.6; O2SAT 88–97
[2021-05-24] MEDS: IPRATROPIUM BR 0.02% INH SOLN 0.5 MG/2.5 ML VIAL INHALATION ×4 (02:15→20:56)
[2021-05-24] MEDS: ALBUTEROL SULFATE NEB 2.5 MG/0.5 ML INH INHALATION ×4 (02:15→20:55)
[2021-05-24] MEDS: MORPHINE SULFATE (*CRX) 15 MG TABCR PO ×3 (05:41→21:16)
[2021-05-24 07:12] LABS: Basophils Percent Auto 0.1 % (0.2-1.2); Eosinophils Percent Auto 0.1 % (0-4.4); Hematocrit 29.2 % (37.0-47.0); Hemoglobin 9.2 g/dL (12.0-15.0); Immature Granulocyte Absolute 0.15 K/mm3 (0.00-0.031); Immature Granulocyte Percent A 0.8 % (0-0.5); Lymphocytes Absolute Auto 1.58 K/mm3 (0.9-3.2); Lymphocytes Percent Auto 7.9 % (18.3-44.2); Mean Corpuscular HGB Conc 31.5 g/dl (32-36); Mean Corpuscular Hemoglobin 25.2 pg (26-34); Mean Platelet Volume 9.1 fl (7.4-10.4); Monocytes Absolute Auto 0.9 K/mm3 (0.1-0.6); Monocytes Percent Auto 4.3 % (2.6-8.5); Neutrophils Absolute Auto 17.3 K/mm3 (1.3-6.7); Neutrophils Percent Auto 86.8 % (45.5-73.1); Platelet Count Result 496 k/mm3 (150-375); Red Blood Count 3.65 M/mm3 (4.2-5.4); Red Cell Distribution Width 18.1 % (11.5-14.5)
[2021-05-24 07:27] LABS: Anion Gap 3 mmol/L (8-16); Blood Urea Nitrogen 16 mg/dL (7-17); Calcium 7.7 mg/dL (8.4-10.2); Carbon Dioxide 35 mmol/L (22-30); Chloride 95 mmol/L (98-107); Estimated CRCL calculation 63 ml/min; Estimated Glomerular Filt Rate > 60; Glucose 97 mg/dL (65-110); Potassium 3.9 mmol/L (3.4-5.0); Sodium 133 mmol/L (137-145)
[2021-05-24] MEDS: ASPIRIN 81 MG ENTERIC TABLET PO (08:12)
[2021-05-24] MEDS: APIXABAN 2.5 MG TABLET PO ×2 (08:12→18:06)
[2021-05-24] MEDS: SOLIFENACIN 5 MG TABLET PO (08:12)
[2021-05-24] MEDS: GABAPENTIN 300 MG CAPSULE 600 MG PO ×4 (08:12→21:16)
[2021-05-24] MEDS: FERROUS SULFATE 324 MG TABLET PO ×2 (08:12→18:06)
[2021-05-24] MEDS: MAGNESIUM OXIDE 400 MG TABLET PO (08:13)
[2021-05-24] MEDS: SERTRALINE HCL 25 MG TABLET PO (08:13)
[2021-05-24] MEDS: AMIODARONE HCL 200 MG TABLET PO (08:13)
[2021-05-24] MEDS: METOPROLOL SUCCINATE EXT REL 50 MG TABCR PO (08:14)
[2021-05-24] MEDS: SILVERGEL (ELTA) 45 ML 1 APPLIC TOPICAL (08:14)
[2021-05-24] MEDS: FUROSEMIDE INJ 40 MG/4 ML VIAL 20 MG IV PUSH (08:15)
[2021-05-24] MEDS: BRIMONIDINE TARTRATE 0.1% 5 ML OPHTH DROPS 1 DROP EACH EYE ×2 (08:15→21:16)
[2021-05-24] MEDS: MENTHOL 10% / METHYL SALICYLATE 15% 57 GM TUBE 1 APPLIC TOPICAL (08:17)
[2021-05-24 09:03] LABS: Glucose Point of Care 96 mg/dl (65-105)
--- NOTE | 2021-05-24 10:14 | PM.PNCARD ---
Progress Note: A&P Assessment and Plan (1) Pneumonia: Code(s): J18.9 - Pneumonia, unspecified organism Status: Acute Assessment and Plan: Managed as per hospitalist. (2) Pleural effusion: Code(s): J90 - Pleural effusion, not elsewhere classified Status: Acute Assessment and Plan: Probably related to diastolic dysfunction. On Lasix 20 mg IV BID. (3) PAF (paroxysmal atrial fibrillation): Code(s): I48.0 - Paroxysmal atrial fibrillation Status: Acute Assessment and Plan: In sinus rhythm. On Amiodarone. On Eliquis. (4) Hypertension: Code(s): I10 - Essential (primary) hypertension Status: Acute Assessment and Plan: Stable. Decrease Toprol XL 50 mg daily. (5) Type 2 diabetes mellitus: Code(s): E11.9 - Type 2 diabetes mellitus without complications Status: Acute Assessment and Plan: Management as per hospitalist. (6) Dyslipidemia: Code(s): E78.5 - Hyperlipidemia, unspecified Status: Acute Assessment and Plan: On Atrovastatin. Subjective Date/time seen: 05/24/21 10:15 Reports breathing is slightly improving. She has some intermittent right chest discomfort with inspiration. Exam Const: General: cooperative Resp: Auscultation: no crackles, no rales, no rhonchi, no wheezes and diminished lung sounds Cardio: Jugular venous distension: no JVD Rate: regular rate Rhythm: regular rhythm Heart sounds: no murmurs Peripheral pulses: dorsalis pedis present GI: GI Palp: No abdominal tenderness and Yes Soft to palpation Neuro: General: oriented to person, oriented to place and oriented to time Extrem: Right lower extremity: no edema Left lower extremity: no edema Objective Data Vital Signs Vital Signs: Vital Signs - 24 hr 05/23/21 10:32 05/23/21 12:00 05/23/21 12:27 Temperature 97.8 F Pulse Rate 65 62 66 Respiratory Rate 22 H Blood Pressure 111/49 L Pulse Oximetry 93 95 05/23/21 13:59 05/23/21 14:00 05/23/21 14:11 Temperature Pulse Rate 64 62 66 Respiratory Rate 16 16 Blood Pressure Pulse Oximetry 05/23/21 16:00 05/23/21 16:52 05/23/21 20:00 Temperature 98.7 F 97.6 F Pulse Rate 62 64 63 Respiratory Rate 22 H 18 Blood Pressure 99/57 L 133/40 L Pulse Oximetry 95 91 93 05/23/21 20:35 05/23/21 20:45 05/23/21 22:00 Temperature Pulse Rate 68 69 71 Respiratory Rate 18 18 Blood Pressure Pulse Oximetry 05/23/21 23:41 05/24/21 00:00 05/24/21 02:00 Temperature 97.8 F Pulse Rate 57 L 56 L 58 L Respiratory Rate 20 20 Blood Pressure 130/41 L Pulse Oximetry 97 97 05/24/21 02:17 05/24/21 02:23 05/24/21 04:00 Temperature 97.6 F Pulse Rate 73 74 63 Respiratory Rate 18 18 22 H Blood Pressure 105/40 L Pulse Oximetry 94 05/24/21 06:00 05/24/21 08:00 05/24/21 08:10 Temperature 97.3 F L Pulse Rate 68 56 L 59 L Respiratory Rate 18 Blood Pressure 121/35 L Pulse Oximetry 90 93 05/24/21 08:13 05/24/21 08:14 05/24/21 09:33 Temperature 97.9 F Pulse Rate 59 L 59 L 57 L Respiratory Rate 22 H Blood Pressure 124/42 L Pulse Oximetry 88 L 05/24/21 09:37 05/24/21 09:38 05/24/21 10:04 Temperature Pulse Rate 56 L 54 L Respiratory Rate 20 20 Blood Pressure Pulse Oximetry 90 Intake/Output Intake/Output: Intake & Output 05/21/21 05/22/21 05/23/21 05/24/21 23:59 23:59 23:59 23:59 Intake Total 1700 1180 440 220 Output Total 1300 1450 2600 1150 Balance 400 270 -2160 -930 Meds/Results Medications: Active Medications Generic Name Dose Route Start Last Admin Trade Name Freq PRN Reason Stop Dose Admin Albuterol 2.5 mg 05/20/21 20:00 05/24/21 09:36 Albuterol Sulfate Neb 2.5 Mg/0.5 Ml Inh INHALATION 2.5 mg Q6HRT CHAY Administration Amiodarone HCl 200 mg 05/19/21 14:29 05/24/21 08:13 Amiodarone Hcl 200 Mg Tablet PO 200 mg DAILY CHAY Administration Apixaban 2.5 mg
--- NOTE | 2021-05-24 10:41 | PM.IMPN ---
Progress Note: A&P Assessment and Plan (1) Pneumonia: Qualifiers: Laterality: right Lung location: unspecified part of lung Pneumonia type: due to unspecified organism Qualified Code(s): J18.9 - Pneumonia, unspecified organism Code(s): J18.9 - Pneumonia, unspecified organism Status: Acute Assessment and Plan: Admission chest x-ray bilateral infiltrates, right more than left Ceftriaxone and azithromycin course finished Blood cultures NTD Sputum culture growth of normal saran Urinary antigens for legionella and strep pneumo negative BiPAP support as needed, now O2 wean as tolerated (2) Acute hypoxemic respiratory failure: Code(s): J96.01 - Acute respiratory failure with hypoxia Status: Acute Assessment and Plan: In the setting of bilateral pneumonia, management as above Given persistent infiltrates and pleural effusions, will consult pulmonary for evaluation She was not on O2 support at home prior to this Recent echo with diastolic dysfunction, initiated on Lasix per cardiology. She did have some coughing with oral intake, swallow eval and assess for aspiration 05/21: Single episode of silent trace aspiration with thin liquids during swallow with a straw. Recommendation per speech therapy: cleared but no straw use. (3) Leukocytosis: Qualifiers: Leukocytosis type: unspecified Qualified Code(s): D72.829 - Elevated white blood cell count, unspecified Code(s): D72.829 - Elevated white blood cell count, unspecified Status: Acute Assessment and Plan: WBC on presentation 44K, in the setting of severe infection and respiratory failure, improving with antibiotic treatment, now slight increase after initiation steroids, monitor (4) Elevated platelet count: Code(s): R79.89 - Other specified abnormal findings of blood chemistry Status: Acute Assessment and Plan: Possibly reactive secondary to infection, improved Monitor (5) Tobacco abuse: Code(s): Z72.0 - Tobacco use Status: Acute Assessment and Plan: She reports she quit 2 months ago (6) PAF (paroxysmal atrial fibrillation): Code(s): I48.0 - Paroxysmal atrial fibrillation Status: Acute Assessment and Plan: Continue metoprolol, titrate dose for better rate control Continue amiodarone Continue anticoagulation with apixaban (7) Protein calorie malnutrition: Qualifiers: Protein-calorie malnutrition severity: unspecified severity Qualified Code(s): E46 - Unspecified protein-calorie malnutrition Code(s): E46 - Unspecified protein-calorie malnutrition Status: Chronic Assessment and Plan: Chronic issue for her likely in the setting of significant comorbid disease Encouraged p.o. 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): Code(s): G40.909 - Epilepsy, unspecified, not intractable, without status epilepticus; I63.9 - Cerebral infarction, unspecified Status: Acute Assessment and Plan: Continue on gabapentin Monitor (9) COPD (chronic obstructive pulmonary disease): Qualifiers: COPD type: unspecified COPD Qualified Code(s): J44.9 - Chronic obstructive pulmonary disease, unspecified Code(s): J44.9 - Chronic obstructive pulmonary disease, unspecified Status: Chronic Assessment and Plan: Continue home inhalers Given her wheezing and productive cough, possible superimposed COPD exacerbation, will give a course of prednisone along with neb treatments with close monitoring. Methyl Pred 05/20- (10) Type 2 diabetes mellitus: Code(s): E11.9 - Type 2 diabetes mellitus without complications Status: Acute Assessment and Plan: Resume home metformin given she has been stable Accuchecks (11) Normocytic anemia: Code(s): D64.9 - Anemia, unspecified Status: Acute Assessment and Plan: Chronic, stable, anemia indice
[2021-05-24] MEDS: methylPREDNISolone SOD SUCC 125 MG VIAL 60 MG IV PUSH (11:51)
[2021-05-24] MEDS: metFORMIN HCL XR 500 MG TAB.SR.24H PO (11:53)
[2021-05-24 12:38] LABS: Glucose Point of Care 133 mg/dl (65-105)
--- NOTE | 2021-05-24 14:30 | PCPTNOTE ---
Attempted to see patient for PT, however patient O2 was at 86% when first entering patient's room, had patient do some deep breathing exercises, patient's O2 increased to 90%. Asked patient if she felt like doing any therapy or exercises in bed, patient reported no. Therapy agreed that was best at this time.
[2021-05-24 20:37] LABS: Glucose Point of Care 186 mg/dl (65-105)
[2021-05-24] MEDS: ATORVASTATIN 40 MG TABLET PO (21:16)
[2021-05-24] MEDS: LATANOPROST 0.005% OP SOLN 2.5 ML BTL 1 DROP EACH EYE (21:16)
[2021-05-25] VITALS (20 sets, daily range): BP systolic 104–139; BP diastolic 48–69; PULSE 60–70; RESP 16–20; TEMP 36.6–36.7; O2SAT 92–98
[2021-05-25] MEDS: ALBUTEROL SULFATE NEB 2.5 MG/0.5 ML INH INHALATION ×4 (02:18→21:23)
[2021-05-25] MEDS: IPRATROPIUM BR 0.02% INH SOLN 0.5 MG/2.5 ML VIAL INHALATION ×4 (02:19→21:24)
[2021-05-25] MEDS: MORPHINE SULFATE (*CRX) 15 MG TABCR PO ×3 (06:02→22:25)
--- NOTE | 2021-05-25 07:33 | PM.PNCARD ---
Progress Note: A&P Assessment and Plan (1) Pneumonia: Code(s): J18.9 - Pneumonia, unspecified organism Status: Acute Assessment and Plan: Managed as per hospitalist. (2) Pleural effusion: Code(s): J90 - Pleural effusion, not elsewhere classified Status: Acute Assessment and Plan: Probably related to pneumonia but in case there is some contribution from diastolic dysfunction, she was given Lasix. On Lasix 20 mg IV BID and was changed to 20 mg IV daily by hospitalist. However she has persistent effusion and she does not appear overloaded, pulmonology consulted. May need right thoracentesis. May d/c Lasix if clinically indicated. Will sign off. Please call me with any questions. (3) PAF (paroxysmal atrial fibrillation): Code(s): I48.0 - Paroxysmal atrial fibrillation Status: Acute Assessment and Plan: Stable. In sinus rhythm. On Amiodarone. On Eliquis. (4) Hypertension: Code(s): I10 - Essential (primary) hypertension Status: Acute Assessment and Plan: Stable. Decrease Toprol XL 50 mg daily. (5) Type 2 diabetes mellitus: Code(s): E11.9 - Type 2 diabetes mellitus without complications Status: Acute Assessment and Plan: Management as per hospitalist. (6) Dyslipidemia: Code(s): E78.5 - Hyperlipidemia, unspecified Status: Acute Assessment and Plan: On Atrovastatin. (7) Chest pain: Code(s): R07.9 - Chest pain, unspecified Status: Acute Assessment and Plan: Probably pneumonia related. R/O for MD by series of troponin and EKG is OK. Subjective Date/time seen: 05/25/21 07:33 Reports slightly improved breathing. She has at times right chest then left chest discomfort that comes on with inspiration. Exam Const: General: cooperative Resp: Auscultation: no crackles, no rales, no rhonchi, no wheezes and diminished lung sounds Cardio: Jugular venous distension: no JVD Rate: regular rate Rhythm: regular rhythm Heart sounds: no murmurs Peripheral pulses: dorsalis pedis present GI: GI Palp: No abdominal tenderness and Yes Soft to palpation Neuro: General: oriented to person, oriented to place and oriented to time Extrem: Right lower extremity: no edema Left lower extremity: no edema Objective Data Vital Signs Vital Signs: Vital Signs - 24 hr 05/24/21 08:00 05/24/21 08:10 05/24/21 08:13 Temperature 97.3 F L Pulse Rate 56 L 59 L 59 L Respiratory Rate 18 Blood Pressure 121/35 L Pulse Oximetry 90 93 05/24/21 08:14 05/24/21 09:33 05/24/21 09:37 Temperature 97.9 F Pulse Rate 59 L 57 L Respiratory Rate 22 H Blood Pressure 124/42 L Pulse Oximetry 88 L 90 05/24/21 09:38 05/24/21 10:00 05/24/21 10:04 Temperature Pulse Rate 56 L 53 L 54 L Respiratory Rate 20 20 Blood Pressure Pulse Oximetry 05/24/21 12:00 05/24/21 12:39 05/24/21 13:57 Temperature 97.8 F Pulse Rate 67 61 63 Respiratory Rate 18 20 Blood Pressure 93/42 L Pulse Oximetry 95 95 05/24/21 14:00 05/24/21 14:06 05/24/21 16:00 Temperature Pulse Rate 64 62 63 Respiratory Rate 20 Blood Pressure Pulse Oximetry 95 05/24/21 17:38 05/24/21 18:00 05/24/21 19:59 Temperature 97.7 F 97.5 F L Pulse Rate 63 66 64 Respiratory Rate 22 H 18 Blood Pressure 118/45 L 114/42 L Pulse Oximetry 93 95 05/24/21 20:00 05/24/21 20:58 05/24/21 20:59 Temperature Pulse Rate 65 64 Respiratory Rate 16 16 Blood Pressure Pulse Oximetry 93 93 05/24/21 21:04 05/24/21 22:00 05/24/21 23:18 Temperature 97.7 F Pulse Rate 62 69 66 Respiratory Rate 16 18 Blood Pressure 133/47 L Pulse Oximetry 92 05/25/21 00:00 05/25/21 02:00 05/25/21 02:19 Temperature Pulse Rate 64 62 Respiratory Rate 18 Blood Pressure Pulse Oximetry 92 94 05/25/21 02:20 05/25/21 02:30 05/25/21 04:00 Temperature 97.9 F Pulse Rate 62 60 63 Respiratory Rate
[2021-05-25] MEDS: SILVERGEL (ELTA) 45 ML 1 APPLIC TOPICAL (09:21)
[2021-05-25] MEDS: SERTRALINE HCL 25 MG TABLET PO (09:21)
[2021-05-25] MEDS: METOPROLOL SUCCINATE EXT REL 50 MG TABCR PO (09:21)
[2021-05-25] MEDS: SOLIFENACIN 5 MG TABLET PO (09:21)
[2021-05-25] MEDS: GABAPENTIN 300 MG CAPSULE 600 MG PO ×4 (09:22→22:24)
[2021-05-25] MEDS: ASPIRIN 81 MG ENTERIC TABLET PO (09:22)
[2021-05-25] MEDS: FERROUS SULFATE 324 MG TABLET PO ×2 (09:22→18:38)
[2021-05-25] MEDS: AMIODARONE HCL 200 MG TABLET PO (09:22)
[2021-05-25] MEDS: MAGNESIUM OXIDE 400 MG TABLET PO (09:22)
[2021-05-25] MEDS: APIXABAN 2.5 MG TABLET PO ×2 (09:22→18:36)
[2021-05-25] MEDS: FUROSEMIDE INJ 40 MG/4 ML VIAL 20 MG IV PUSH (09:22)
[2021-05-25] MEDS: metFORMIN HCL XR 500 MG TAB.SR.24H PO (09:22)
[2021-05-25] MEDS: BRIMONIDINE TARTRATE 0.1% 5 ML OPHTH DROPS 1 DROP EACH EYE ×2 (09:22→22:24)
[2021-05-25] MEDS: methylPREDNISolone SOD SUCC 125 MG VIAL 60 MG IV PUSH (09:25)
[2021-05-25 10:19] LABS: Glucose Point of Care 87 mg/dl (65-105)
--- NOTE | 2021-05-25 11:47 | P.PNIM_ITS ---
Progress Note: A&P Assessment and Plan (1) Pneumonia: Qualifiers: Laterality: right Lung location: unspecified part of lung Pneumonia type: due to unspecified organism Qualified Code(s): J18.9 - Pneumonia, unspecified organism Code(s): J18.9 - Pneumonia, unspecified organism Status: Acute Assessment and Plan: Admission chest x-ray bilateral infiltrates, right more than left Ceftriaxone and azithromycin course finished Blood cultures NTD Sputum culture growth of normal saran Urinary antigens for legionella and strep pneumo negative BiPAP support as needed, now O2 wean as tolerated (2) Acute hypoxemic respiratory failure: Code(s): J96.01 - Acute respiratory failure with hypoxia Status: Acute Assessment and Plan: In the setting of bilateral pneumonia, management as above Given persistent infiltrates and pleural effusions, will consult pulmonary for evaluation She was not on O2 support at home prior to this Recent echo with diastolic dysfunction, initiated on Lasix per cardiology. She did have some coughing with oral intake, swallow eval and assess for aspiration 05/21: Single episode of silent trace aspiration with thin liquids during swallow with a straw. Recommendation per speech therapy: cleared but no straw use. (3) Leukocytosis: Qualifiers: Leukocytosis type: unspecified Qualified Code(s): D72.829 - Elevated white blood cell count, unspecified Code(s): D72.829 - Elevated white blood cell count, unspecified Status: Acute Assessment and Plan: WBC on presentation 44K, in the setting of severe infection and respiratory failure, improving with antibiotic treatment, now slight increase after initia tion steroids, monitor (4) Elevated platelet count: Code(s): R79.89 - Other specified abnormal findings of blood chemistry Status: Acute Assessment and Plan: Possibly reactive secondary to infection, improved Monitor (5) Tobacco abuse: Code(s): Z72.0 - Tobacco use Status: Acute Assessment and Plan: She reports she quit 2 months ago (6) PAF (paroxysmal atrial fibrillation): Code(s): I48.0 - Paroxysmal atrial fibrillation Status: Acute Assessment and Plan: Continue metoprolol, titrate dose for better rate control Continue amiodarone Continue anticoagulation with apixaban (7) Protein calorie malnutrition: Qualifiers: Protein-calorie malnutrition severity: unspecified severity Qualified Code(s): E46 - Unspecified protein-calorie malnutrition Code(s): E46 - Unspecified protein-calorie malnutrition Status: Chronic Assessment and Plan: Chronic issue for her likely in the setting of significant comorbid disease Encouraged p.o. 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): Code(s): G40.909 - Epilepsy, unspecified, not intractable, without status epilepticus; I63.9 - Cerebral infarction, unspecified Status: Acute Assessment and Plan: Continue on gabapentin Monitor (9) COPD (chronic obstructive pulmonary disease): Qualifiers: COPD type: unspecified COPD Qualified Code(s): J44.9 - Chronic obstructive pulmonary disease, unspecified Code(s): J44.9 - Chronic obstructive pulmonary disease, unspecified Status: Chronic Assessment and Plan: Continue home inhalers Given her wheezing and productive cough, possible superimposed COPD exacerbation, will give a course of prednisone along with neb treatments with close monitoring. Methyl
--- NOTE | 2021-05-25 13:11 | PCDIET ---
Nutrition Follow-Up Complete: Nutrition Diagnosis: Increased energy needs related to COPD as evidenced by BMI of 16.9 and recommended caloric needs of 1,667 calories per day (+500). Nutrition Goal: Patient to meet estimated nutritional needs. Goal in progress. Patient has consumed an average of 60% of recorded meals since last review. Reports taking Ensure Compact TID and feels chin tuck recommended by [employer] has been helping. Patient reports taking 8oz Ensure at home and is agreeable to try Enlive while here. Recommend change from Ensure Compact (220kcal, 9g protein) TID to Ensure Enlive (350kcal, 20g protein) TID. Regular diet remains appropriate, as tolerated, and would suggest adjusting glycemic medications as much as possible before limiting diet. Last recorded weight is 43.8 kg which is slightly increased from last review. Bowel Motility: +BM today. Labs Reviewed: Glu (186) Meds Noted: Albuterol, Pacerone, Lipitor, Symbicort, Ferrous Sulfate, Lasix, Atrovent, Mag-Ox, Glucophage, Solu Medrol, Toprol XL, MS Contin, Lasix Additional Notes: Left heel diabetic ulcer. Will continue to monitor with same goal. Nutrition Monitoring and Evaluation: Follow up in 5 days.
[2021-05-25 13:34] LABS: Glucose Point of Care 143 mg/dl (65-105)
--- NOTE | 2021-05-25 14:25 | PC.NURSE ---
This patient, Mariam Pérez, was transferred to [facility] on 05/25/21 at 1425. Personal belongings sent with patient. Report given to Virginia CARRASCO. Appropriate documentation sent with patient.
[2021-05-25 16:56] LABS: Glucose Point of Care 170 mg/dl (65-105)
[2021-05-25] MEDS: ATORVASTATIN 40 MG TABLET PO (22:24)
[2021-05-25] MEDS: LATANOPROST 0.005% OP SOLN 2.5 ML BTL 1 DROP EACH EYE (22:25)
[2021-05-26] VITALS (16 sets, daily range): BP systolic 119–145; BP diastolic 40–55; PULSE 56–69; RESP 16–18; TEMP 36.2–36.8; O2SAT 91–100
[2021-05-26] MEDS: ALBUTEROL SULFATE NEB 2.5 MG/0.5 ML INH INHALATION ×4 (02:48→20:35)
[2021-05-26] MEDS: IPRATROPIUM BR 0.02% INH SOLN 0.5 MG/2.5 ML VIAL INHALATION ×3 (02:48→14:10)
[2021-05-26] MEDS: MORPHINE SULFATE (*CRX) 15 MG TABCR PO ×3 (06:12→21:34)
[2021-05-26 08:08] LABS: Glucose Point of Care 75 mg/dl (65-105)
[2021-05-26] MEDS: metFORMIN HCL XR 500 MG TAB.SR.24H PO (08:36)
[2021-05-26] MEDS: GABAPENTIN 300 MG CAPSULE 600 MG PO ×4 (08:36→21:33)
[2021-05-26] MEDS: ASPIRIN 81 MG ENTERIC TABLET PO (08:36)
[2021-05-26] MEDS: APIXABAN 2.5 MG TABLET PO ×2 (08:37→18:22)
[2021-05-26] MEDS: FERROUS SULFATE 324 MG TABLET PO ×2 (08:37→18:22)
[2021-05-26] MEDS: MAGNESIUM OXIDE 400 MG TABLET PO (08:37)
[2021-05-26] MEDS: AMIODARONE HCL 200 MG TABLET PO (08:37)
[2021-05-26] MEDS: SOLIFENACIN 5 MG TABLET PO (08:37)
[2021-05-26] MEDS: SILVERGEL (ELTA) 45 ML 1 APPLIC TOPICAL (08:37)
[2021-05-26] MEDS: methylPREDNISolone SOD SUCC 125 MG VIAL 60 MG IV PUSH (08:37)
[2021-05-26] MEDS: METOPROLOL SUCCINATE EXT REL 50 MG TABCR PO (08:38)
[2021-05-26] MEDS: SERTRALINE HCL 25 MG TABLET PO (08:38)
[2021-05-26] MEDS: FUROSEMIDE INJ 40 MG/4 ML VIAL 20 MG IV PUSH (08:38)
[2021-05-26] MEDS: BRIMONIDINE TARTRATE 0.1% 5 ML OPHTH DROPS 1 DROP EACH EYE ×2 (08:38→21:34)
[2021-05-26 09:25] LABS: Hematocrit 37.2 % (37.0-47.0); Hemoglobin 11.3 g/dL (12.0-15.0); Mean Corpuscular HGB Conc 30.4 g/dl (32-36); Mean Corpuscular Hemoglobin 24.5 pg (26-34); Mean Corpuscular Volume 80.7 fl (80-100); Mean Platelet Volume 9.2 fl (7.4-10.4); Platelet Count Result 638 k/mm3 (150-375); Red Blood Count 4.61 M/mm3 (4.2-5.4); Red Cell Distribution Width 18.4 % (11.5-14.5); White Blood Count 25.4 K/mm3 (4.5-10.0)
--- NOTE | 2021-05-26 09:35 | PCOTNOTE ---
Attempted to see pt this am for ot session, however, pt was getting back into bed and experiencing severe pain on the right side and left heel. pt expressed that she would like to be seen later today following rest. will attempt to see pt this pm if able to.
[2021-05-26 10:03] LABS: Lymphocytes Absolute Manual 3.55 K/mm3 (1.1-4.5); Monocytes Percent Manual 2 % (3-9); Neutrophils Percent Manual 84 % (46-73); Total Cells Counted 100
[2021-05-26 10:04] LABS: Platelet Estimate Increased (Adequate)
[2021-05-26] MEDS: MORPHINE SULFATE (*CRX) 2 MG/ML INJ IV PUSH (11:09)
[2021-05-26 12:09] LABS: Glucose Point of Care 119 mg/dl (65-105)
--- NOTE | 2021-05-26 12:16 | PCOTNOTE ---
Attempted to see pt for the 2nd attempt, however pt was eating lunch and states that she was not up to it and would try again tomorrow. Will continue per poc duration/frequency tomorrow.
--- NOTE | 2021-05-26 16:18 | PM.CNPUL ---
Assessment and Plan Assessment and plan (1) Pneumonia: Code(s): J18.9 - Pneumonia, unspecified organism Status: Acute Assessment and Plan: She has community acquired pneumonia with a loculated right pleural effusion, no septations noted. Her WBC is lower, Na+ is improved, O2 need is lower. She had 5 days of ceftriaxone and azith. Needs to continue treatment. She may be able to get medical treatment and not have to have drainage catheter or surgery. She may have had low grade chronic aspiration and seeded the RLL for a while. She was not on antibiotics before arrival May 18. PLAN Restart ceftriaxone; adding Flagyl for anaerobes, she has a history of C diff so Flagyl has a risk for recurrent C diff and lowering her seizure threshold. Will give lower dose, 250 mg IV Q 6 hours. Stop IV solumedrol, start oral prednisone Apixaban; needs to be off FridayMay 27, and can restart FridayMay 29; those hold orders were entered Stop ipratropium with glaucoma Wean O2 as tolerated; was 89% on 3 L/min today; increased to 4 L/min. She was on 80% at admission, so she is much better. (2) Pleural effusion: Code(s): J90 - Pleural effusion, not elsewhere classified Status: Acute Assessment and Plan: moderate size loculated parapneumonic effusion, no septations; thoracentesis planned for FridayMay 28 fungal studies added to labs (3) Multiple lung nodules: Code(s): R91.8 - Other nonspecific abnormal finding of lung field Status: Acute Assessment and Plan: seen on HRCT May 20; may represent infection No need for evaluation at this time; will follow (4) COPD (chronic obstructive pulmonary disease): Qualifiers: COPD type: unspecified COPD Qualified Code(s): J44.9 - Chronic obstructive pulmonary disease, unspecified Code(s): J44.9 - Chronic obstructive pulmonary disease, unspecified Status: Chronic Assessment and Plan: Long standing, on Symbicort, albuterol prn Stop ipratropium with glaucoma, anticholinergic meds can increased eye pressure (5) Former heavy tobacco smoker: Code(s): Z87.891 - Personal history of nicotine dependence Status: Acute Assessment and Plan: Smoked > 50 years, still was having a few when she was admitted, mostly quit March 15 > 50 pack year History of Present Illness History of Present Illness Consult date: 05/26/21 Requesting physician: Lupe Lam MD Chief complaint: Pneumonia Narrative: NEW: Mariam Pérez is an 81 year old female with COPD, former smoker, quit 2 months ago. She has been on disability since 1990 due to her back, had several surgeries, chronic pain, now sees a pain specialist, gets injections and take oral morphine tablets daily. Her back pain is the main reason why she is limited in her exertion, although she does get short of breath with little exertion. She was admitted May 18 with extreme respiratory distress after a subacute course, no fever or chills, no sore throat or change in sputum which was yellow; she required bipap to oxygenate, 80% FiO2, pO2 was 48; she had infiltrates R>L, and leukocytosis 44K with thrombocytosis platelet count 700K. Na+ was low 125. She had negative COVID test, negative urine antigens for Legionella and pneumococcus. Seh had IV Lasix for possible diastolic dysfunction, LE dopplers were negative, CXR showed bilateral infiltrates R>L, and HRCT 05/20 loculated a moderate size right pleural effusion as well as infiltrates R>L. She is better, on 3 L/min O2, but still has shortness of breath and chest pain in the sternum and right shoulder when she take
[2021-05-26 16:42] LABS: Glucose Point of Care 173 mg/dl (65-105)
[2021-05-26] MEDS: ONDANSETRON INJ 4 MG/2 ML VIAL IV PUSH (18:25)
[2021-05-26] MEDS: LATANOPROST 0.005% OP SOLN 2.5 ML BTL 1 DROP EACH EYE (21:34)
[2021-05-26] MEDS: ATORVASTATIN 40 MG TABLET PO (21:34)
[2021-05-26 22:22] LABS: Glucose Point of Care 131 mg/dl (65-105)
[2021-05-26] MEDS: metroNIDAZOLE 250MG/ISO 50 ML 250 MG/50 ML BAG 50 MG IVPB (23:15)
[2021-05-27] VITALS (19 sets, daily range): BP systolic 110–128; BP diastolic 38–61; PULSE 31–64; RESP 16–20; TEMP 36.1–36.7; O2SAT 89–98
[2021-05-27] MEDS: ALBUTEROL SULFATE NEB 2.5 MG/0.5 ML INH INHALATION ×4 (02:47→21:48)
[2021-05-27] MEDS: metroNIDAZOLE 250MG/ISO 50 ML 250 MG/50 ML BAG 50 MG IVPB ×4 (05:10→21:22)
[2021-05-27] MEDS: MORPHINE SULFATE (*CRX) 15 MG TABCR PO ×3 (06:19→20:20)
[2021-05-27 06:26] LABS: Basophils Percent Auto 0.1 % (0.2-1.2); Eosinophils Percent Auto 0.1 % (0-4.4); Hematocrit 30.6 % (37.0-47.0); Hemoglobin 9.3 g/dL (12.0-15.0); Immature Granulocyte Absolute 0.24 K/mm3 (0.00-0.031); Immature Granulocyte Percent A 1.1 % (0-0.5); Lymphocytes Absolute Auto 1.72 K/mm3 (0.9-3.2); Lymphocytes Percent Auto 7.9 % (18.3-44.2); Mean Corpuscular HGB Conc 30.4 g/dl (32-36); Mean Corpuscular Hemoglobin 24.9 pg (26-34); Mean Platelet Volume 9.5 fl (7.4-10.4); Monocytes Absolute Auto 0.7 K/mm3 (0.1-0.6); Monocytes Percent Auto 3.4 % (2.6-8.5); Neutrophils Absolute Auto 18.9 K/mm3 (1.3-6.7); Neutrophils Percent Auto 87.4 % (45.5-73.1); Platelet Count Result 576 k/mm3 (150-375); Red Blood Count 3.73 M/mm3 (4.2-5.4); White Blood Count 21.7 K/mm3 (4.5-10.0)
[2021-05-27 08:10] LABS: Glucose Point of Care 71 mg/dl (65-105)
--- NOTE | 2021-05-27 09:37 | PM.IMPN ---
Progress Note: A&P Assessment and Plan (1) Pneumonia: Qualifiers: Laterality: right Lung location: unspecified part of lung Pneumonia type: due to unspecified organism Qualified Code(s): J18.9 - Pneumonia, unspecified organism Code(s): J18.9 - Pneumonia, unspecified organism Status: Acute Assessment and Plan: Admission chest x-ray bilateral infiltrates, right more than left Ceftriaxone and azithromycin course finished, given persistent infiltrates, pulmonary recommended re-initiation of ceftriaxone, and added Flagyl 05/26- Blood cultures NTD Sputum culture growth of normal saran Urinary antigens for legionella and strep pneumo negative BiPAP support as needed, now O2 wean as tolerated (2) Acute hypoxemic respiratory failure: Code(s): J96.01 - Acute respiratory failure with hypoxia Status: Acute Assessment and Plan: In the setting of bilateral pneumonia, management as above Given persistent infiltrates and pleural effusions, Consulted pulmonary for evaluation, appreciate help Antibiotics were initiated with ceftriaxone and Flagyl 05/26 Plan for thoracentesis 05/28, will hold apixaban today and resume after procedure She was not on O2 support at home prior to this Recent echo with diastolic dysfunction, initiated on Lasix per cardiology. She did have some coughing with oral intake, swallow eval to assess for aspiration 05/21: Single episode of silent trace aspiration with thin liquids during swallow with a straw. Recommendation per speech therapy: cleared but no straw use. (3) Leukocytosis: Qualifiers: Leukocytosis type: unspecified Qualified Code(s): D72.829 - Elevated white blood cell count, unspecified Code(s): D72.829 - Elevated white blood cell count, unspecified Status: Acute Assessment and Plan: WBC on presentation 44K, in the setting of severe infection and respiratory failure, improving with antibiotic treatment, now slight increase after initiation steroids, monitor (4) Elevated platelet count: Code(s): R79.89 - Other specified abnormal findings of blood chemistry Status: Acute Assessment and Plan: Possibly reactive secondary to infection, improved Monitor (5) Tobacco abuse: Code(s): Z72.0 - Tobacco use Status: Acute Assessment and Plan: She reports she quit 2 months ago (6) PAF (paroxysmal atrial fibrillation): Code(s): I48.0 - Paroxysmal atrial fibrillation Status: Acute Assessment and Plan: Continue amiodarone Continue metoprolol, titrate dose for better rate control, will decrease metoprolol to 25 mg 05/27 given some HR dips into the 40s. Continue anticoagulation with apixaban after planned thoracentesis 05/28 (7) Protein calorie malnutrition: Qualifiers: Protein-calorie malnutrition severity: unspecified severity Qualified Code(s): E46 - Unspecified protein-calorie malnutrition Code(s): E46 - Unspecified protein-calorie malnutrition Status: Chronic Assessment and Plan: Chronic issue for her likely in the setting of significant comorbid disease Encouraged p.o. 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): Code(s): G40.909 - Epilepsy, unspecified, not intractable, without status epilepticus; I63.9 - Cerebral infarction, unspecified Status: Acute Assessment and Plan: Continue on gabapentin Monitor (9) COPD (chronic obstructive pulmonary disease): Qualifiers: COPD type: unspecified COPD Qualified Code(s): J44.9 - Chronic obstructive pulmonary disease, unspecified Code(s): J44.9 - Chronic obstructive pulmonary disease, unspecified Status: Chronic Assessment and Plan: Continue home inhalers Given her wheezing and productive cough, possible superimposed COPD exacerbation, will give a course of prednisone along with neb treatments with close monitoring. Methyl Pred 05/20-05/16
[2021-05-27] MEDS: GABAPENTIN 300 MG CAPSULE 600 MG PO ×4 (09:59→20:21)
[2021-05-27] MEDS: AMIODARONE HCL 200 MG TABLET PO (10:00)
[2021-05-27] MEDS: metFORMIN HCL XR 500 MG TAB.SR.24H PO (10:01)
[2021-05-27] MEDS: FERROUS SULFATE 324 MG TABLET PO ×2 (10:01→17:28)
[2021-05-27] MEDS: SILVERGEL (ELTA) 45 ML 1 APPLIC TOPICAL (10:01)
[2021-05-27] MEDS: SERTRALINE HCL 25 MG TABLET PO (10:01)
[2021-05-27] MEDS: SOLIFENACIN 5 MG TABLET PO (10:01)
[2021-05-27] MEDS: predniSONE 20 MG TABLET 40 MG PO (10:02)
[2021-05-27] MEDS: METOPROLOL SUCCINATE EXT REL 50 MG TABCR PO (10:03)
[2021-05-27] MEDS: MAGNESIUM OXIDE 400 MG TABLET PO (10:03)
[2021-05-27] MEDS: BRIMONIDINE TARTRATE 0.1% 5 ML OPHTH DROPS 1 DROP EACH EYE ×2 (10:03→20:22)
[2021-05-27] MEDS: LIDOCAINE 5% PATCH 2 PATCH TRANSDERM (11:36)
[2021-05-27 12:03] LABS: Glucose Point of Care 136 mg/dl (65-105)
[2021-05-27 17:13] LABS: Glucose Point of Care 186 mg/dl (65-105)
[2021-05-27] MEDS: ATORVASTATIN 40 MG TABLET PO (20:22)
[2021-05-27] MEDS: LATANOPROST 0.005% OP SOLN 2.5 ML BTL 1 DROP EACH EYE (20:22)
[2021-05-28] VITALS (20 sets, daily range): BP systolic 115–155; BP diastolic 44–51; PULSE 55–82; RESP 12–20; TEMP 36.5–37; O2SAT 84–100
[2021-05-28 01:40] LABS: Glucose Point of Care 172 mg/dl (65-105)
[2021-05-28] MEDS: ALBUTEROL SULFATE NEB 2.5 MG/0.5 ML INH INHALATION ×4 (03:20→20:29)
[2021-05-28] MEDS: metroNIDAZOLE 250MG/ISO 50 ML 250 MG/50 ML BAG 50 MG IVPB ×4 (04:30→22:24)
[2021-05-28 05:25] LABS: Basophils Percent Auto 0.1 % (0.2-1.2); Hematocrit 29.3 % (37.0-47.0); Immature Granulocyte Absolute 0.16 K/mm3 (0.00-0.031); Immature Granulocyte Percent A 0.8 % (0-0.5); Lymphocytes Absolute Auto 1.33 K/mm3 (0.9-3.2); Lymphocytes Percent Auto 6.5 % (18.3-44.2); Mean Corpuscular HGB Conc 30.7 g/dl (32-36); Mean Corpuscular Hemoglobin 24.6 pg (26-34); Mean Corpuscular Volume 80.1 fl (80-100); Mean Platelet Volume 9.3 fl (7.4-10.4); Monocytes Absolute Auto 0.6 K/mm3 (0.1-0.6); Neutrophils Absolute Auto 18.4 K/mm3 (1.3-6.7); Neutrophils Percent Auto 89.6 % (45.5-73.1); Platelet Count Result 544 k/mm3 (150-375); Red Blood Count 3.66 M/mm3 (4.2-5.4); Red Cell Distribution Width 18.3 % (11.5-14.5); White Blood Count 20.5 K/mm3 (4.5-10.0)
[2021-05-28 05:36] LABS: Lactate Dehydrogenase 529 U/L (313-618)
[2021-05-28] MEDS: MORPHINE SULFATE (*CRX) 15 MG TABCR PO ×3 (06:38→21:09)
[2021-05-28 08:06] LABS: Glucose Point of Care 68 mg/dl (65-105)
[2021-05-28] MEDS: LIDOCAINE 5% PATCH 2 PATCH TRANSDERM (08:30)
[2021-05-28] MEDS: predniSONE 20 MG TABLET 40 MG PO (08:31)
[2021-05-28] MEDS: SERTRALINE HCL 25 MG TABLET PO (08:32)
[2021-05-28] MEDS: AMIODARONE HCL 200 MG TABLET PO (08:32)
[2021-05-28] MEDS: BRIMONIDINE TARTRATE 0.1% 5 ML OPHTH DROPS 1 DROP EACH EYE ×2 (08:32→20:47)
[2021-05-28] MEDS: SOLIFENACIN 5 MG TABLET PO (08:32)
[2021-05-28] MEDS: FERROUS SULFATE 324 MG TABLET PO ×2 (08:32→17:38)
[2021-05-28] MEDS: MAGNESIUM OXIDE 400 MG TABLET PO (08:32)
[2021-05-28] MEDS: METOPROLOL SUCCINATE EXT REL 25 MG TABCR PO (08:35)
[2021-05-28] MEDS: GABAPENTIN 300 MG CAPSULE 600 MG PO ×4 (08:35→20:47)
[2021-05-28] MEDS: SILVERGEL (ELTA) 45 ML 1 APPLIC TOPICAL (08:36)
--- NOTE | 2021-05-28 08:36 | PM.PNPUL ---
Progress Note: A&P Assessment and Plan (1) Pneumonia: Code(s): J18.9 - Pneumonia, unspecified organism Status: Acute Assessment and Plan: Patient with minimal to moderate clinical improvement, improved oxygenation and improved chest x-ray on ceftriaxone and Flagyl now. She is afebrile but remains with a leukocytosis. She is scheduled for a right thoracentesis later today. She received ceftriaxone and azithromycin on 05/18 and 05/19. sputum culture on 05/19 was normal saran. She was COVID negative on 05/18. Agree with ceftriaxone and Flagyl for now. (2) Pleural effusion: Code(s): J90 - Pleural effusion, not elsewhere classified Status: Acute Assessment and Plan: Patient with right pleural effusion with component of loculation on high-resolution CT scan from 05/20/2021. CT scan from 02/28/2021 of the abdomen showed no right pleural effusion. Patient is scheduled to have a thoracentesis later today to determine if this is a transudate, exudate or empyema. (3) COPD (chronic obstructive pulmonary disease): Qualifiers: COPD type: unspecified COPD Qualified Code(s): J44.9 - Chronic obstructive pulmonary disease, unspecified Code(s): J44.9 - Chronic obstructive pulmonary disease, unspecified Status: Chronic Assessment and Plan: Patient has no wheezing today and I will discontinue prednisone. She has received systemic steroids since 05/18. I will continue albuterol nebulizers Q 6 hours and continue her Symbicort. Will follow with you. Subjective Date/time seen: 05/28/21 08:36 Interval history: 05/26 NEW: Mariam Pérez is an 81 year old female with COPD, former smoker, quit 2 months ago. She has been on disability since 1990 due to her back, had several surgeries, chronic pain, now sees a pain specialist, gets injections and take oral morphine tablets daily. Her back pain is the main reason why she is limited in her exertion, although she does get short of breath with little exertion. She was admitted May 18 with extreme respiratory distress after a subacute course, no fever or chills, no sore throat or change in sputum which was yellow; she required bipap to oxygenate, 80% FiO2, pO2 was 48; she had infiltrates R>L, and leukocytosis 44K with thrombocytosis platelet count 700K. Na+ was low 125. She had negative COVID test, negative urine antigens for Legionella and pneumococcus. Seh had IV Lasix for possible diastolic dysfunction, LE dopplers were negative, CXR showed bilateral infiltrates R>L, and HRCT 05/20 loculated a moderate size right pleural effusion as well as infiltrates R>L. She is better, on 3 L/min O2, but still has shortness of breath and chest pain in the sternum and right shoulder when she takes a breath in. She says that she has had thick dark discolored sputum for several months, initially was brown and dark, now cryptozoologist yellow. It improved when she stopped smoking around early March. She uses albuterol rescue inhaler a couple times a day, and nebulizer with COPD controller meds BID. She has minimal aspiration of fluids with swallowing. She denies significant problems with swallowing. She has dental implants on the lower teeth with no molars, and upper dentures. Today May 26, her WBC is 24.5K, lower than admission, on 3 L/min with saturation 89%, increased to 4 L/min. She has right shoulder and substernal chest pain with coughing. She is having abdominal pain with rumbling bowel sounds. She has a moderate loculated right pleural effusion on HRCT May 20. This needs to be tapped, and I talked with her about this. Dr. Lam has ordered the thoracentesis for Friday. She completed 5 days of ceftriaxone and azithromycin. With this effusion, I am going to add coverage for anaerobes. She still has a leukocytosis, O2 deficit, chest pain with deep breathing, and likely is still infected. She may have had chronic aspiration with an abnormal swallow study She was g
[2021-05-28 09:03] LABS: Partial Thromboplastin Time 28.4 SECONDS (22.3-36.8); Prothrombin Time 13.5 Seconds (11.1-14.7)
--- NOTE | 2021-05-28 09:23 | PCSTNOTE ---
Today, this patient stated that she does not want to continue with direct swallowing treatment; she indicated that she feels her swallowing is fine and that she no longer requires direct treatment. Therapist notified nursing and hospitalist of patient's request.
[2021-05-28 09:52] LABS: Glucose Point of Care 88 mg/dl (65-105)
--- NOTE | 2021-05-28 10:23 | PM.IMPN ---
Progress Note: A&P Assessment and Plan (1) Pneumonia: Qualifiers: Laterality: right Lung location: unspecified part of lung Pneumonia type: due to unspecified organism Qualified Code(s): J18.9 - Pneumonia, unspecified organism Code(s): J18.9 - Pneumonia, unspecified organism Status: Acute Assessment and Plan: Admission chest x-ray bilateral infiltrates, right more than left Ceftriaxone and azithromycin course finished, given persistent infiltrates, pulmonary recommended re-initiation of ceftriaxone, and added Flagyl 05/26- Blood cultures NTD Sputum culture growth of normal saran Urinary antigens for legionella and strep pneumo negative BiPAP support as needed, now O2 wean as tolerated pulm on board, appreciate recs - for now continue ctx & flagyl, d/c steroids Follow results of Rt sided thora later today (2) Acute hypoxemic respiratory failure: Code(s): J96.01 - Acute respiratory failure with hypoxia Status: Acute Assessment and Plan: In the setting of bilateral pneumonia, management as above Given persistent infiltrates and pleural effusions, Consulted pulmonary for evaluation, appreciate help Antibiotics were initiated with ceftriaxone and Flagyl 05/26 Plan for thoracentesis 05/28, will hold apixaban today and resume after procedure She was not on O2 support at home prior to this Recent echo with diastolic dysfunction, initiated on Lasix per cardiology. She did have some coughing with oral intake, swallow eval to assess for aspiration 05/21: Single episode of silent trace aspiration with thin liquids during swallow with a straw. Recommendation per speech therapy: cleared but no straw use. (3) Leukocytosis: Qualifiers: Leukocytosis type: unspecified Qualified Code(s): D72.829 - Elevated white blood cell count, unspecified Code(s): D72.829 - Elevated white blood cell count, unspecified Status: Acute Assessment and Plan: WBC on presentation 44K, in the setting of severe infection and respiratory failure, improving with antibiotic treatment, now slight increase after initiation steroids, monitor (4) Elevated platelet count: Code(s): R79.89 - Other specified abnormal findings of blood chemistry Status: Acute Assessment and Plan: Possibly reactive secondary to infection, improved Monitor (5) Tobacco abuse: Code(s): Z72.0 - Tobacco use Status: Acute Assessment and Plan: She reports she quit 2 months ago nicotine patch as needed will discuss cessation in detail this admission (6) PAF (paroxysmal atrial fibrillation): Code(s): I48.0 - Paroxysmal atrial fibrillation Status: Acute Assessment and Plan: Continue amiodarone Continue metoprolol, titrate dose for better rate control, will decrease metoprolol to 25 mg 05/27 given some HR dips into the 40s. Continue anticoagulation with apixaban after planned thoracentesis 05/28 (7) Protein calorie malnutrition: Qualifiers: Protein-calorie malnutrition severity: unspecified severity Qualified Code(s): E46 - Unspecified protein-calorie malnutrition Code(s): E46 - Unspecified protein-calorie malnutrition Status: Chronic Assessment and Plan: Chronic issue for her likely in the setting of significant comorbid disease Encouraged p.o. 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
--- NOTE | 2021-05-28 11:28 | PCPTNOTE ---
Attempted to see patient for PT at this time, however patient refused. Patient reported she is supposed to get a procedure done at noon and does not feel like doing therapy today.
--- NOTE | 2021-05-28 11:45 | PCOTNOTE ---
Attempted to see patient for OT, patient stated she was going for a thoracentesis procedure and declined to participate in therapy today. Will continue plan of care tomorrow, 05/29/21.
[2021-05-28 12:21] LABS: Glucose Point of Care 98 mg/dl (65-105)
[2021-05-28 13:59] LABS: pH Pleural Fluid 7.077 (7.210-7.500)
--- NOTE | 2021-05-28 16:16 | PCRCNOTE ---
Window of time for administration has passed. See next scheduled administration.
[2021-05-28 17:17] LABS: Glucose Point of Care 177 mg/dl (65-105)
[2021-05-28] MEDS: AZTREONAM 2 GM in DEXTROSE 5% 100 ML 200 ML IVPB (17:48)
[2021-05-28 20:33] LABS: Pleural fluid source Pleural fluid
[2021-05-28 20:34] LABS: Appearance Pleural Fluid Cloudy (Clear); Color Pleural Fluid Yellow (Colorless); Lymphocytes Pleural Fluid 8 %; Monocytes Pleural Fluid 5 %; Neutrophils Pleural Fluid 87 % (0-25); Nucleated Cell Pleural Fluid 2469 /uL (0-1000); RBC Pleural Fluid 4367 /uL (0-0)
[2021-05-28] MEDS: LATANOPROST 0.005% OP SOLN 2.5 ML BTL 1 DROP EACH EYE (20:47)
[2021-05-28] MEDS: ATORVASTATIN 40 MG TABLET PO (20:47)
[2021-05-28 21:44] LABS: Glucose Point of Care 169 mg/dl (65-105)
[2021-05-29] VITALS (18 sets, daily range): BP systolic 111–136; BP diastolic 40–53; PULSE 50–79; RESP 16–20; TEMP 36.3–36.7; O2SAT 94–100
[2021-05-29] MEDS: ALBUTEROL SULFATE NEB 2.5 MG/0.5 ML INH INHALATION ×4 (02:01→20:53)
[2021-05-29] MEDS: AZTREONAM 2 GM in DEXTROSE 5% 100 ML 200 ML IVPB ×3 (02:37→17:43)
[2021-05-29] MEDS: metroNIDAZOLE 250MG/ISO 50 ML 250 MG/50 ML BAG 50 MG IVPB ×4 (03:15→21:20)
[2021-05-29] MEDS: MORPHINE SULFATE (*CRX) 15 MG TABCR PO ×3 (05:07→21:19)
[2021-05-29 06:08] LABS: Basophils Percent Auto 0.1 % (0.2-1.2); Eosinophils Absolute Auto 0.2 K/mm3 (0-0.3); Eosinophils Percent Auto 0.7 % (0-4.4); Hematocrit 30.2 % (37.0-47.0); Hemoglobin 9.2 g/dL (12.0-15.0); Immature Granulocyte Absolute 0.22 K/mm3 (0.00-0.031); Lymphocytes Percent Auto 6.6 % (18.3-44.2); Mean Corpuscular HGB Conc 30.5 g/dl (32-36); Mean Corpuscular Volume 82.1 fl (80-100); Mean Platelet Volume 9.5 fl (7.4-10.4); Monocytes Absolute Auto 0.6 K/mm3 (0.1-0.6); Monocytes Percent Auto 2.7 % (2.6-8.5); Neutrophils Absolute Auto 20.1 K/mm3 (1.3-6.7); Neutrophils Percent Auto 88.9 % (45.5-73.1); Platelet Count Result 562 k/mm3 (150-375); Red Blood Count 3.68 M/mm3 (4.2-5.4); Red Cell Distribution Width 18.5 % (11.5-14.5); White Blood Count 22.7 K/mm3 (4.5-10.0)
[2021-05-29 06:20] LABS: Alanine Aminotransferase 32 U/L (4-35); Albumin Level 2.1 g/dL (3.5-5.1); Alkaline Phosphatase 124 U/L (38-126); Anion Gap 2 mmol/L (8-16); Aspartate Amino Transferase 28 U/L (14-36); Bilirubin,Total 0.2 mg/dL (0.2-1.3); Blood Urea Nitrogen 15 mg/dL (7-17); Calcium 7.4 mg/dL (8.4-10.2); Carbon Dioxide 35 mmol/L (22-30); Chloride 95 mmol/L (98-107); Estimated CRCL calculation 65 ml/min; Estimated Glomerular Filt Rate > 60; Glucose 81 mg/dL (65-110); Magnesium 1.9 mg/dL (1.6-2.3); Phosphorus 3.2 mg/dL (2.5-4.5); Potassium 4.2 mmol/L (3.4-5.0); Sodium 132 mmol/L (137-145)
--- NOTE | 2021-05-29 07:50 | PM.PNPUL ---
Progress Note: A&P Assessment and Plan (1) Pneumonia: Code(s): J18.9 - Pneumonia, unspecified organism Status: Acute Assessment and Plan: 05/28 Patient with minimal to moderate clinical improvement, improved oxygenation and improved chest x-ray on ceftriaxone and Flagyl now. She is afebrile but remains with a leukocytosis. She is scheduled for a right thoracentesis later today. She received ceftriaxone and azithromycin on 05/18 and 05/19. sputum culture on 05/19 was normal saran. She was COVID negative on 05/18. urine Legionella antigen and urine pneumococcal antigen are negative on 05/19/2021. Agree with ceftriaxone and Flagyl for now. 05/29 clinically the patient is unchanged. white blood cell remains elevated at 22.7. Patient has a complicated loculated right pleural effusion with a pH of 7.077. G stain shows no organisms. patient placed on vancomycin and aztreonam on 05/28 pending cultures from the pleural space. (2) Pleural effusion: Code(s): J90 - Pleural effusion, not elsewhere classified Status: Acute Assessment and Plan: 05/28 Patient with right pleural effusion with component of loculation on high-resolution CT scan from 05/20/2021. CT scan from 02/28/2021 of the abdomen showed no right pleural effusion. Patient is scheduled to have a thoracentesis later today to determine if this is a transudate, exudate or empyema. 05/29 patient with a complicated loculated right pleural effusion with a pH of 7.077, g stain with white blood cells but no organisms, cell count demonstrates neutrophil 87%, lymphocytes 8%, monocytes 5%. Remainder of chemistries and cultures are pending. Agree with referral to higher level of care for thoracic surgery consultation regarding chest tube drainage. [facility] on 05/28. (3) COPD (chronic obstructive pulmonary disease): Qualifiers: COPD type: unspecified COPD Qualified Code(s): J44.9 - Chronic obstructive pulmonary disease, unspecified Code(s): J44.9 - Chronic obstructive pulmonary disease, unspecified Status: Chronic Assessment and Plan: Patient carries a diagnosis of COPD from tobacco exposure from age 26 to 3 months ago at 3/4 pack day for 41 pack years. No PFTs available. 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 At home her baseline is walking around the house. She previously were no oxygen at home. she was maintained on Symbicort 160-4.5 at 2 puffs b.i.d. 05/28 Patient has no wheezing today. recieved morning dose of prednisone 40 and I will discontinue prednisone. She has received systemic steroids since 05/18. I will continue albuterol nebulizers Q 6 hours and continue her Symbicort. 05/29 No wheezes on exam. I will continue Symbicort 160-4.5 at 2 puffs b.i.d. and standing albuterol 2.5 mg nebs Q 6 hours for now. Will follow with you. Subjective Date/time seen: 05/29/21 07:50 Interval history: 05/26 NEW: Mariam Pérez is an 81 year old female with COPD, former smoker, quit 2 months ago. She has been on disability since 1990 due to her back, had several surgeries, chronic pain, now sees a pain specialist, gets injections and take oral morphine tablets daily. Her back pain is the main reason why she is limited in her exertion, although she does get short of breath with little exertion. She was admitted May 18 with extreme respiratory distress after a subacute course, no fever or chills, no sore throat or change in sputum which was yellow; she required bipap to oxygenate, 80% FiO2, pO2 was 48; she had infiltrates R>L, and leukocytosis 44K with thrombocytosis platelet count 700K. Na+ was low 125. She had negative COVID test, negative urine antigens for Legionella and pneumococcus. [facility] had IV Lasix for possible diastolic dysfunction, LE dopplers were negative, CXR showed bilateral infiltrates R>L, and HRCT 05/20 loculated a moderate size r
[2021-05-29 08:26] LABS: Glucose Point of Care 66 mg/dl (65-105)
[2021-05-29] MEDS: AMIODARONE HCL 200 MG TABLET PO (08:33)
[2021-05-29] MEDS: MAGNESIUM OXIDE 400 MG TABLET PO (08:33)
[2021-05-29] MEDS: SERTRALINE HCL 25 MG TABLET PO (08:33)
[2021-05-29] MEDS: METOPROLOL SUCCINATE EXT REL 25 MG TABCR PO (08:33)
[2021-05-29] MEDS: SOLIFENACIN 5 MG TABLET PO (08:34)
[2021-05-29] MEDS: FERROUS SULFATE 324 MG TABLET PO ×2 (08:34→17:16)
[2021-05-29] MEDS: GABAPENTIN 300 MG CAPSULE 600 MG PO ×4 (08:34→20:21)
[2021-05-29] MEDS: BRIMONIDINE TARTRATE 0.1% 5 ML OPHTH DROPS 1 DROP EACH EYE ×2 (08:34→20:21)
[2021-05-29] MEDS: LIDOCAINE 5% PATCH 2 PATCH TRANSDERM (09:06)
[2021-05-29] MEDS: SILVERGEL (ELTA) 45 ML 1 APPLIC TOPICAL (09:11)
--- NOTE | 2021-05-29 09:24 | PC.NURSE ---
received a call from [facility] transfer unit stating that they are waiting on their respiratory to consult as to which unit they want pt to be transferred into and a discharge from that unit which should be sometime today; current pt vitals given as requested in anticipation of transfer
[2021-05-29 12:15] LABS: Glucose Point of Care 96 mg/dl (65-105)
[2021-05-29 12:39] LABS: Glucose Point of Care 92 mg/dl (65-105)
--- NOTE | 2021-05-29 13:10 | PCNFU ---
Nutrition Follow-Up Complete: Increased energy needs related to COPD as evidenced by BMI of 16.9 and recommended caloric needs of 1,667 calories per day (+500). Goal: Patient to meet estimated nutritional needs. Patient is progressing towards goal. We will continue current goal. Pt current nutrition is Regular with Ensure Compact TID. Last recorded weight is 45 kg up from 42 kg on admit. Bowel Motility:+BM reported 05/27. Labs Reviewed:Cr 0.4,Alb 2.1, Na 132, Hct 30.2,Hgb 9.2 Meds Noted:Mag Ox,Toprol, Zoloft,Flagyl. Additional Notes: Nutrition follow up. Patient had Thoracentesis 05/28. Possible Transfer to other hospital for management of chest tube. Oral Intake today 75% at breakfast and 120 ml of Ensure Compact. Agree with current diet orders. Monitor patient's labs, medications, weight, and oral intake every 5 days.
--- NOTE | 2021-05-29 14:00 | PCOTNOTE ---
Attempted to see patient this pm, however patient refused stating, No, I just got back to bed. I sat up 4 different times today on the commode, and that's enough.
[2021-05-29] MEDS: hydrOXYzine HCL 25 MG TABLET PO (17:14)
[2021-05-29] MEDS: APIXABAN 2.5 MG TABLET PO (17:16)
[2021-05-29 17:34] LABS: Glucose Point of Care 112 mg/dl (65-105)
[2021-05-29] MEDS: ATORVASTATIN 40 MG TABLET PO (20:21)
[2021-05-29] MEDS: LATANOPROST 0.005% OP SOLN 2.5 ML BTL 1 DROP EACH EYE (20:21)
[2021-05-29 20:57] LABS: Glucose Point of Care 175 mg/dl (65-105)
[2021-05-29 20:57] LABS: Glucose Point of Care 59 mg/dl (65-105)
[2021-05-30] VITALS (14 sets, daily range): BP systolic 135–151; BP diastolic 45–76; PULSE 52–71; RESP 16–20; TEMP 36.4–37; O2SAT 94–98
[2021-05-30] MEDS: AZTREONAM 2 GM in DEXTROSE 5% 100 ML 200 ML IVPB ×3 (01:19→18:53)
[2021-05-30] MEDS: ALBUTEROL SULFATE NEB 2.5 MG/0.5 ML INH INHALATION (02:03)
[2021-05-30] MEDS: metroNIDAZOLE 250MG/ISO 50 ML 250 MG/50 ML BAG 50 MG IVPB ×4 (03:32→21:21)
[2021-05-30] MEDS: MORPHINE SULFATE (*CRX) 15 MG TABCR PO ×3 (05:55→21:22)
[2021-05-30 06:03] LABS: Basophils Percent Auto 0.2 % (0.2-1.2); Eosinophils Absolute Auto 0.3 K/mm3 (0-0.3); Eosinophils Percent Auto 1.2 % (0-4.4); Hematocrit 31.7 % (37.0-47.0); Hemoglobin 9.8 g/dL (12.0-15.0); Immature Granulocyte Absolute 0.21 K/mm3 (0.00-0.031); Immature Granulocyte Percent A 0.9 % (0-0.5); Lymphocytes Absolute Auto 1.54 K/mm3 (0.9-3.2); Lymphocytes Percent Auto 6.4 % (18.3-44.2); Mean Corpuscular HGB Conc 30.9 g/dl (32-36); Mean Corpuscular Hemoglobin 25.5 pg (26-34); Mean Corpuscular Volume 82.3 fl (80-100); Mean Platelet Volume 9.2 fl (7.4-10.4); Monocytes Absolute Auto 0.7 K/mm3 (0.1-0.6); Neutrophils Absolute Auto 21.3 K/mm3 (1.3-6.7); Neutrophils Percent Auto 88.3 % (45.5-73.1); Platelet Count Result 559 k/mm3 (150-375); Red Blood Count 3.85 M/mm3 (4.2-5.4); Red Cell Distribution Width 18.8 % (11.5-14.5); White Blood Count 24.1 K/mm3 (4.5-10.0)
[2021-05-30 06:18] LABS: Alanine Aminotransferase 28 U/L (4-35); Albumin Level 2.1 g/dL (3.5-5.1); Alkaline Phosphatase 127 U/L (38-126); Anion Gap 1 mmol/L (8-16); Aspartate Amino Transferase 30 U/L (14-36); Bilirubin,Total < 0.1 mg/dL (0.2-1.3); Blood Urea Nitrogen 15 mg/dL (7-17); Calcium 7.4 mg/dL (8.4-10.2); Carbon Dioxide 33 mmol/L (22-30); Chloride 97 mmol/L (98-107); Estimated CRCL calculation 65 ml/min; Estimated Glomerular Filt Rate > 60; Glucose 85 mg/dL (65-110); Magnesium 1.9 mg/dL (1.6-2.3); Phosphorus 3.6 mg/dL (2.5-4.5); Potassium 4.3 mmol/L (3.4-5.0); Sodium 131 mmol/L (137-145)
[2021-05-30 08:21] LABS: Glucose Point of Care 82 mg/dl (65-105)
[2021-05-30 08:34] LABS: Glucose Point of Care 70 mg/dl (65-105)
--- NOTE | 2021-05-30 09:16 | PM.PNPUL ---
Progress Note: A&P Assessment and Plan (1) Pneumonia: Code(s): J18.9 - Pneumonia, unspecified organism Status: Acute Assessment and Plan: 05/28 Patient with minimal to moderate clinical improvement, improved oxygenation and improved chest x-ray on ceftriaxone and Flagyl now. She is afebrile but remains with a leukocytosis. She is scheduled for a right thoracentesis later today. She received ceftriaxone and azithromycin on 05/18 and 05/19. sputum culture on 05/19 was normal saran. She was COVID negative on 05/18. urine Legionella antigen and urine pneumococcal antigen are negative on 05/19/2021. Agree with ceftriaxone and Flagyl for now. 05/29 clinically the patient is unchanged. white blood cell remains elevated at 22.7. Patient has a complicated loculated right pleural effusion with a pH of 7.077. G stain shows no organisms. patient placed on vancomycin and aztreonam on 05/28 pending cultures from the pleural space. 05/30 Minimal improvement with rising white count on vanc, aztreonam and Flagyl. I will order CT chest with contrast today to reassess complicated pleural effusion. (2) Pleural effusion: Code(s): J90 - Pleural effusion, not elsewhere classified Status: Acute Assessment and Plan: 05/28 Patient with right pleural effusion with component of loculation on high-resolution CT scan from 05/20/2021. CT scan from 02/28/2021 of the abdomen showed no right pleural effusion. Patient is scheduled to have a thoracentesis later today to determine if this is a transudate, exudate or empyema. 05/29 patient with a complicated loculated right pleural effusion with a pH of 7.077, g stain with white blood cells but no organisms, cell count demonstrates neutrophil 87%, lymphocytes 8%, monocytes 5%. Remainder of chemistries and cultures are pending. Agree with referral to higher level of care for thoracic surgery consultation regarding chest tube drainage. [facility] on 05/[facility]. 05/30 Still awaiting referral for thoracic surgery consultation regarding complicated right pleural effusion. As mentioned above will obtain CT scan of the chest with IV contrast today. (3) COPD (chronic obstructive pulmonary disease): Qualifiers: COPD type: unspecified COPD Qualified Code(s): J44.9 - Chronic obstructive pulmonary disease, unspecified Code(s): J44.9 - Chronic obstructive pulmonary disease, unspecified Status: Chronic Assessment and Plan: Patient carries a diagnosis of COPD from tobacco exposure from age 26 to 3 months ago at 3/4 pack day for 41 pack years. No PFTs available. 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 At home her baseline is walking around the house. She previously were no oxygen at home. she was maintained on Symbicort 160-4.5 at 2 puffs b.i.d. 05/28 Patient has no wheezing today. recieved morning dose of prednisone 40 and I will discontinue prednisone. She has received systemic steroids since 05/18. I will continue albuterol nebulizers Q 6 hours and continue her Symbicort. 05/29 No wheezes on exam. I will continue Symbicort 160-4.5 at 2 puffs b.i.d. and standing albuterol 2.5 mg nebs Q 6 hours for now. 05/30 No wheezes on exam. off systemic steroids for 48 hours now. Continue Symbicort 160-4.5 at 2 puffs b.i.d. and change standing albuterol to p.r.n.. Will follow with you. Subjective Date/time seen: 05/30/21 09:16 Interval history: 05/26 NEW: Mariam Pérez is an 81 year old female with COPD, former smoker, quit 2 months ago. She has been on disability since 1990 due to her back, had several surgeries, chronic pain, now sees a pain specialist, gets injections and take oral morphine tablets daily. Her back pain is the main reason why she is limited in her exertion, although she does get short of breath with little exertion. She was admitted May 18 with extreme respira
[2021-05-30] MEDS: FERROUS SULFATE 324 MG TABLET PO ×2 (09:23→17:07)
[2021-05-30] MEDS: APIXABAN 2.5 MG TABLET PO ×2 (09:27→17:07)
[2021-05-30] MEDS: AMIODARONE HCL 200 MG TABLET PO (09:28)
[2021-05-30] MEDS: BRIMONIDINE TARTRATE 0.1% 5 ML OPHTH DROPS 1 DROP EACH EYE ×2 (09:28→21:22)
[2021-05-30] MEDS: GABAPENTIN 300 MG CAPSULE 600 MG PO ×4 (09:30→21:22)
[2021-05-30] MEDS: LIDOCAINE 5% PATCH 2 PATCH TRANSDERM (09:30)
[2021-05-30] MEDS: MAGNESIUM OXIDE 400 MG TABLET PO (09:31)
[2021-05-30] MEDS: METOPROLOL SUCCINATE EXT REL 25 MG TABCR PO (09:31)
[2021-05-30] MEDS: SERTRALINE HCL 25 MG TABLET PO (09:32)
[2021-05-30] MEDS: SILVERGEL (ELTA) 45 ML 1 APPLIC TOPICAL (09:32)
[2021-05-30] MEDS: SOLIFENACIN 5 MG TABLET PO (09:32)
--- NOTE | 2021-05-30 10:10 | PCPTNOTE ---
Attempted to see patient for PT, however patient refused to complete therapy session. Patient completed ankle pumps, quad sets, glut sets, and heel slides, then reported she was done. Educated patient on the importance of therapy and the importance of performing LE exercises correctly, however patient refused education.
[2021-05-30 12:15] LABS: Glucose Point of Care 112 mg/dl (65-105)
--- NOTE | 2021-05-30 13:45 | PCOTNOTE ---
Attempted to see patient this pm, however patient declined due to pain stating, Can I just rest? Pt declined activity out of bed at this time.
--- NOTE | 2021-05-30 15:42 | PC.NURSE ---
On 05/30/21, the student, Perla Marcos, provided care and completed [facility] documentation on this patient. I have reviewed the student's documentation and agree with the findings.
[2021-05-30 17:04] LABS: Glucose Point of Care 79 mg/dl (65-105)
--- NOTE | 2021-05-30 17:08 | PCRCNOTE ---
Window of time for administration has passed. See next scheduled administration.
[2021-05-30 21:08] LABS: Glucose Pleural Fluid 24 mg/dL; LDH Pleural Fluid 3710 U/L; Total Protein Pleural Fluid <3.0 g/dL
[2021-05-30] MEDS: LATANOPROST 0.005% OP SOLN 2.5 ML BTL 1 DROP EACH EYE (21:21)
[2021-05-30] MEDS: ATORVASTATIN 40 MG TABLET PO (21:22)
[2021-05-30 22:56] LABS: Glucose Point of Care 143 mg/dl (65-105)
[2021-05-30 23:45] LABS: Vancomycin Trough 9.1 ug/mL (10.0-20.0)
[2021-05-31] VITALS (14 sets, daily range): BP systolic 124–135; BP diastolic 43–51; PULSE 55–72; RESP 16–20; TEMP 36–36.4; O2SAT 91–98
[2021-05-31] MEDS: AZTREONAM 2 GM in DEXTROSE 5% 100 ML 200 ML IVPB ×3 (02:17→18:02)
[2021-05-31] MEDS: metroNIDAZOLE 250MG/ISO 50 ML 250 MG/50 ML BAG 50 MG IVPB ×3 (03:39→16:55)
[2021-05-31] MEDS: ACETAMINOPHEN 500 MG TABLET 1000 MG PO (04:16)
[2021-05-31 04:55] LABS: Basophils Percent Auto 0.2 % (0.2-1.2); Eosinophils Absolute Auto 0.2 K/mm3 (0-0.3); Hematocrit 28.8 % (37.0-47.0); Hemoglobin 9.1 g/dL (12.0-15.0); Immature Granulocyte Absolute 0.12 K/mm3 (0.00-0.031); Immature Granulocyte Percent A 0.6 % (0-0.5); Lymphocytes Absolute Auto 1.73 K/mm3 (0.9-3.2); Lymphocytes Percent Auto 8.8 % (18.3-44.2); Mean Corpuscular HGB Conc 31.6 g/dl (32-36); Mean Corpuscular Hemoglobin 25.3 pg (26-34); Mean Platelet Volume 9.1 fl (7.4-10.4); Monocytes Absolute Auto 0.7 K/mm3 (0.1-0.6); Monocytes Percent Auto 3.8 % (2.6-8.5); Neutrophils Absolute Auto 16.8 K/mm3 (1.3-6.7); Neutrophils Percent Auto 85.6 % (45.5-73.1); Platelet Count Result 501 k/mm3 (150-375); Red Cell Distribution Width 18.5 % (11.5-14.5); White Blood Count 19.6 K/mm3 (4.5-10.0)
[2021-05-31 05:07] LABS: Alanine Aminotransferase 25 U/L (4-35); Alkaline Phosphatase 133 U/L (38-126); Anion Gap -1 mmol/L (8-16); Aspartate Amino Transferase 26 U/L (14-36); Bilirubin,Total 0.1 mg/dL (0.2-1.3); Blood Urea Nitrogen 14 mg/dL (7-17); Calcium 7.4 mg/dL (8.4-10.2); Carbon Dioxide 34 mmol/L (22-30); Chloride 98 mmol/L (98-107); Estimated CRCL calculation 65 ml/min; Estimated Glomerular Filt Rate > 60; Glucose 99 mg/dL (65-110); Magnesium 1.8 mg/dL (1.6-2.3); Phosphorus 3.5 mg/dL (2.5-4.5); Potassium 4.2 mmol/L (3.4-5.0); Sodium 131 mmol/L (137-145)
[2021-05-31] MEDS: MORPHINE SULFATE (*CRX) 15 MG TABCR PO ×3 (05:10→20:37)
[2021-05-31 08:15] LABS: Glucose Point of Care 83 mg/dl (65-105)
[2021-05-31] MEDS: SILVERGEL (ELTA) 45 ML 1 APPLIC TOPICAL (08:18)
[2021-05-31] MEDS: LIDOCAINE 5% PATCH 2 PATCH TRANSDERM (08:24)
[2021-05-31] MEDS: APIXABAN 2.5 MG TABLET PO ×2 (08:25→16:59)
[2021-05-31] MEDS: GABAPENTIN 300 MG CAPSULE 600 MG PO ×4 (08:25→20:37)
[2021-05-31] MEDS: SOLIFENACIN 5 MG TABLET PO (08:26)
[2021-05-31] MEDS: FERROUS SULFATE 324 MG TABLET PO ×2 (08:26→16:59)
[2021-05-31] MEDS: AMIODARONE HCL 200 MG TABLET PO (08:26)
[2021-05-31] MEDS: MAGNESIUM OXIDE 400 MG TABLET PO (08:26)
[2021-05-31] MEDS: SERTRALINE HCL 25 MG TABLET PO (08:29)
[2021-05-31] MEDS: METOPROLOL SUCCINATE EXT REL 25 MG TABCR PO (08:29)
[2021-05-31] MEDS: BRIMONIDINE TARTRATE 0.1% 5 ML OPHTH DROPS 1 DROP EACH EYE ×2 (08:30→20:37)
--- NOTE | 2021-05-31 09:00 | PM.PNPUL ---
Progress Note: A&P Assessment and Plan (1) Pneumonia: Code(s): J18.9 - Pneumonia, unspecified organism Status: Acute Assessment and Plan: 05/28 Patient with minimal to moderate clinical improvement, improved oxygenation and improved chest x-ray on ceftriaxone and Flagyl now. She is afebrile but remains with a leukocytosis. She is scheduled for a right thoracentesis later today. She received ceftriaxone and azithromycin on 05/18 and 05/19. sputum culture on 05/19 was normal saran. She was COVID negative on 05/18. urine Legionella antigen and urine pneumococcal antigen are negative on 05/19/2021. Agree with ceftriaxone and Flagyl for now. 05/29 clinically the patient is unchanged. white blood cell remains elevated at 22.7. Patient has a complicated loculated right pleural effusion with a pH of 7.077. G stain shows no organisms. patient placed on vancomycin and aztreonam on 05/28 pending cultures from the pleural space. 05/30 Minimal improvement with rising white count on vanc (started 05/28), aztreonam (started 05/28) and Flagyl (started 05/26). I will order CT chest with contrast today to reassess complicated pleural effusion. 05/31 Clinically she is slowly improving. CT scan of the chest yesterday with contrast demonstrated a moderate size right pleural effusions with loculations pleural thickening suggestive of an empyema, improved pneumonia. Awaiting transfer to facility with ability to place chest tube with thoracic surgery consultation. (2) Pleural effusion: Code(s): J90 - Pleural effusion, not elsewhere classified Status: Acute Assessment and Plan: 05/28 Patient with right pleural effusion with component of loculation on high-resolution CT scan from 05/20/2021. CT scan from 02/28/2021 of the abdomen showed no right pleural effusion. Patient is scheduled to have a thoracentesis later today to determine if this is a transudate, exudate or empyema. 05/29 patient with a complicated loculated right pleural effusion with a pH of 7.077, g stain with white blood cells but no organisms, cell count demonstrates neutrophil 87%, lymphocytes 8%, monocytes 5%. Remainder of chemistries and cultures are pending. Agree with referral to higher level of care for thoracic surgery consultation regarding chest tube drainage. [facility] on 05[facility]. 05/30 Still awaiting referral for thoracic surgery consultation regarding complicated right pleural effusion. As mentioned above will obtain CT scan of the chest with IV contrast today. 05/[address] scan on 05/30 with loculations and thickened pleura with a low pH and low glucose this is a complicated parapneumonic effusion, Cultures are negative likely as was on antibiotics at time of thoricentesis. Pathology on the pleural space fluid demonstrated no malignancies with abundant neutrophils. LDH was 3710 with a serum of 529 resulting in a ratio of 7.01. Pleural total protein less than 3.0 with a serum of 5.0. Unable to calculate a ratio. Glucose 24 with a serum glucose of 112. Triglycerides were 18. Cultures remain negative. (3) COPD (chronic obstructive pulmonary disease): Qualifiers: COPD type: unspecified COPD Qualified Code(s): J44.9 - Chronic obstructive pulmonary disease, unspecified Code(s): J44.9 - Chronic obstructive pulmonary disease, unspecified Status: Chronic Assessment and Plan: Patient carries a diagnosis of COPD from tobacco exposure from age 26 to 3 months ago at 3/4 pack day for 41 pack years. No PFTs available. 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 At home her baseline is walking around the house. She previously were no oxygen at home. she was maintained on Symbicort 160-4.5 at 2 puffs b.i.d. 05/28 Patient has no wheezing today. recieved morning dose of prednisone 40 and I will discontinue prednisone. She has receiv
--- NOTE | 2021-05-31 09:19 | PM.IMPN ---
Progress Note: A&P Assessment and Plan (1) Pneumonia: Qualifiers: Laterality: right Lung location: unspecified part of lung Pneumonia type: due to unspecified organism Qualified Code(s): J18.9 - Pneumonia, unspecified organism Code(s): J18.9 - Pneumonia, unspecified organism Status: Acute Assessment and Plan: Admission chest x-ray bilateral infiltrates, right more than left Ceftriaxone and azithromycin course finished, given persistent infiltrates, pulmonary recommended re-initiation of ceftriaxone, and added Flagyl 05/26- Blood cultures NTD Sputum culture growth of normal saran Urinary antigens for legionella and strep pneumo negative BiPAP support as needed, now O2 wean as tolerated (2) Acute hypoxemic respiratory failure: Code(s): J96.01 - Acute respiratory failure with hypoxia Status: Acute Assessment and Plan: In the setting of bilateral pneumonia, management as above Given persistent infiltrates and pleural effusions, Consulted pulmonary for evaluation She was not on O2 support at home prior to this Recent echo with diastolic dysfunction, initiated on Lasix per cardiology. She did have some coughing with oral intake, swallow eval to assess for aspiration 05/21: Single episode of silent trace aspiration with thin liquids during swallow with a straw. Recommendation per speech therapy: cleared but no straw use. (3) Leukocytosis: Qualifiers: Leukocytosis type: unspecified Qualified Code(s): D72.829 - Elevated white blood cell count, unspecified Code(s): D72.829 - Elevated white blood cell count, unspecified Status: Acute Assessment and Plan: WBC on presentation 44K, in the setting of severe infection and respiratory failure, improving with antibiotic treatment, now slight increase after initiation steroids, monitor (4) Elevated platelet count: Code(s): R79.89 - Other specified abnormal findings of blood chemistry Status: Acute Assessment and Plan: Possibly reactive secondary to infection, improved Monitor (5) Tobacco abuse: Code(s): Z72.0 - Tobacco use Status: Acute Assessment and Plan: She reports she quit 2 months ago nicotine patch as needed will discuss cessation in detail this admission (6) PAF (paroxysmal atrial fibrillation): Code(s): I48.0 - Paroxysmal atrial fibrillation Status: Acute Assessment and Plan: Continue amiodarone Continue metoprolol, titrate dose for better rate control, will decrease metoprolol to 25 mg 05/27 given some HR dips into the 40s. Continue anticoagulation with apixaban after planned thoracentesis 05/28 (7) Protein calorie malnutrition: Qualifiers: Protein-calorie malnutrition severity: unspecified severity Qualified Code(s): E46 - Unspecified protein-calorie malnutrition Code(s): E46 - Unspecified protein-calorie malnutrition Status: Chronic Assessment and Plan: Chronic issue for her likely in the setting of significant comorbid disease Encouraged p.o. 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): Code(s): G40.909 - Epilepsy, unspecified, not intractable, without status epilepticus; I63.9 - Cerebral infarction, unspecified Status: Acute Assessment and Plan: Continue on gabapentin Monitor (9) COPD (chronic obstructive pulmonary disease): Qualifiers: COPD type: unspecified COPD Qualified Code(s): J44.9 - Chronic obstructive pulmonary disease, unspecified Code(s): J44.9 - Chronic obstructive pulmonary disease, unspecified Status: Chronic Assessment and Plan: Continue home inhalers Given her wheezing and productive cough, possible superimposed COPD exacerbation, will give a course of prednisone along with neb treatments with close monitoring. Methyl Pred 05/20-05/26, prednisone 40 mg started 05/27 per pulmonary. (10) Type 2 diabetes mellitus:
--- NOTE | 2021-05-31 11:01 | PCNFU ---
Nutrition Follow-Up Complete: Increased energy needs related to COPD as evidenced by BMI of 16.9 and recommended caloric needs of 1,667 calories per day (+500). Goal; Patient to meet estimated nutritional needs. Patient is progressing towards goal. We will continue current goal. Pt current nutrition is Regular. Last recorded weight is 44.9 kg, up from 42 gms of admit. Bowel Motility:+BM reported 05/30 Labs Reviewed:Na 131,Alb 2.0,Hct 28.8,Hgb 9.1 Meds Noted:Zoloft, Pacerone, Eliquis, Toprol. Additional Notes: Patient seen today for nutrition follow up. Patient is currently on a regular diet, eating 75-100% of meals. Diet supplement: Ensure Compact TID providing an additional 220 kcals and 9 gms protein. Agree with diet orders. Monitor patient's labs, medications, weight, and oral intake every 5 days.
[2021-05-31 12:09] LABS: Glucose Point of Care 110 mg/dl (65-105)
--- NOTE | 2021-05-31 13:06 | PCOTNOTE ---
Attempted to see patient, patient declined. Patient educated over importance of participating in therapy and 3-day refusal rule. Patient verbalized she understood non-compliance therapy rule and said, Go ahead and discharge me then, I feel like I'm getting lots of therapy here. Patient to be discharged by OT.
--- NOTE | 2021-05-31 15:02 | PC.NURSE ---
On 05/31/21, the student, Alissa Moreira, provided care and completed [employer] documentation on this patient. I have reviewed the student's documentation and agree with the findings.
[2021-05-31 17:17] LABS: Glucose Point of Care 72 mg/dl (65-105)
[2021-05-31] MEDS: ATORVASTATIN 40 MG TABLET PO (20:37)
[2021-05-31] MEDS: LATANOPROST 0.005% OP SOLN 2.5 ML BTL 1 DROP EACH EYE (20:37)
[2021-05-31 23:12] LABS: Albumin Pleural Fluid 0.7 g/dL
--- NOTE | 2021-06-10 18:33 | PM.TDS ---
Transfer Discharge Sum: Prov Provider Date of admission: 05/20/21 11:07 Primary care physician: Chente Sheth MD Admitting clinician: Bharti Browne MD Consults: 05/19/21 Consult to Dietitian Routine Reason for Consult:: Protein calorie malnutrition with significant weight loss 05/22/21 Consult to Physician Routine Comment: Consulting Provider: Sakina Santillan Reason for consultation: Chest pain Has provider been notified: Yes 05/23/21 Consult to Physician Routine Comment: Consulting Provider: Buck Friend Reason for consultation: add to list Has provider been notified: Yes 05/24/21 Consult to Physician Routine Comment: Domenico Zabala will be here within the hour (,) Consulting Provider: Yaz Caraballo call center agent/MD group to consult: Pulmonary Medicine Reason for consultation: Persistent dyspnea, lung infiltrates, pleural effusions Has provider been notified: Yes DS: Admitting Diagnosis Discharge Date 05/31/21 Admitting Diagnosis acute hypoxic respiratory failure DS: Discharge Diagnosis Discharge Diagnosis (1) Pneumonia: Code(s): J18.9 - Pneumonia, unspecified organism Status: Acute Transfer Discharge Sum: Med Medications Active and Home Medications: Home Medications ferrous sulfate 325 mg PO BID #60 tablet 11/29/20 [Rx Confirmed 05/19/21] amiodarone 200 mg tablet 200 mg PO DAILY tablet 01/17/21 [History Confirmed 05/19/21] Alphagan P 1 drp EACH EYE BID 02/28/21 [History Confirmed 05/19/21] latanoprost 1 drp EACH EYE HS 02/28/21 [History Confirmed 05/19/21] morphine 15 mg PO Q8H 02/28/21 [History Confirmed 05/19/21] magnesium oxide 400 mg PO DAILY 14 Days #14 tablet 03/02/21 [Rx Confirmed 05/19/21] nitroglycerin 0.4 mg sublingual tablet 0.4 mg SUBLINGUAL Q5M PRN #30 tablet 03/15/21 [Rx Confirmed 05/19/21] atorvastatin 40 mg tablet 40 mg PO QHS #90 tablet 04/04/21 [Rx Confirmed 05/19/21] sertraline 25 mg tablet 25 mg PO DAILY #90 tablet 04/09/21 [Rx Confirmed 05/19/21] budesonide-formoterol HFA 160 mcg-4.5 mcg/actuation aerosol inhaler 2 puff INHALATION Q12H #10.2 g 04/13/21 [Rx Confirmed 05/19/21] gabapentin 600 mg tablet 600 mg PO QID #360 tablet 04/13/21 [Rx Confirmed 05/19/21] amlodipine 5 mg tablet 5 mg PO QAM #90 tablet 04/23/21 [Rx Confirmed 05/19/21] hydroxyzine HCl 25 mg tablet 25 mg PO TID PRN #90 tablet 04/23/21 [Rx Confirmed 05/19/21] apixaban 2.5 mg tablet 2.5 mg PO BID #180 tablet 05/18/21 [Rx Confirmed 05/19/21] metformin 500 mg PO DAILY 05/19/21 [History Confirmed 05/19/21] metoprolol succinate 50 mg PO DAILY 05/19/21 [History Confirmed 05/19/21] solifenacin [Vesicare] 5 mg PO DAILY 05/19/21 [History Confirmed 05/19/21] Transfer Discharge Sum: Hosp Hospital Course Hospital course: Mairam Pérez is a 81 year old female with past medical history complicated, including epilepsy related to CVA, Atrial fibrillation, dyslipidemia, iron deficiency anemia, diabetes, smoking history, presenting with acute hypoxic respiratory failure. Initially treated with antibiotics for pneumonia, however imaging further to in context of patient's symptoms not improving. Found to have significantly large pleural effusion on his right hand side. Upon obtaining thoracentesis, fluid appeared loculated, and based on light's criteria, significant concern for an exudate of effusion, potentially a empyema. Despite breathing treatments, antibiotics, therapeutic thoracentesis,, and respiratory support, patient's symptoms were not improving. counting machine operator was on consult, and decision was made to transfer her some place where a chest tube could be placed with thoracic surgery backup in case of complications. As result patient was transferred to outside facility, after communicating with several facilities to see who had a bed. Time Spent with Patient Time attestation: Total time spent providing and/or coordinating transfer services: Exam Const: General: no acute d
== END 2021-05-31 21:05 | disposition short-term general hospital (02) | DRG 177 ==
LOC: ANHED 23:20 → ANHIMU 05-19 00:27 → ANH3MEDSUR 05-25 15:51
PROVIDERS: Internal Medicine Nephrology; Admitting Provider Internal Medicine; Emergency Provider Emergency Medicine; PCP Family Medicine; Visit Provider Internal Medicine
DX: J86.9 Pyothorax without fistula (principal); J18.9 Pneumonia, unspecified organism; J96.01 Acute respiratory failure with hypoxia; E46 Unspecified protein-calorie malnutrition; Z68.1 Body mass index [BMI] 19.9 or less, adult; J90 Pleural effusion, not elsewhere classified; G40.802 Other epilepsy, not intractable, without status epilepticus; I69.398 Other sequelae of cerebral infarction; Z20.822 Contact with and (suspected) exposure to COVID-19; D72.829 Elevated white blood cell count, unspecified; I48.0 Paroxysmal atrial fibrillation; J43.9 Emphysema, unspecified; D50.9 Iron deficiency anemia, unspecified; F43.10 Post-traumatic stress disorder, unspecified; R91.8 Other nonspecific abnormal finding of lung field; E11.42 Type 2 diabetes mellitus with diabetic polyneuropathy; I25.10 Atherosclerotic heart disease of native coronary artery without angina pectoris; E78.5 Hyperlipidemia, unspecified; M81.8 Other osteoporosis without current pathological fracture; Z96.641 Presence of right artificial hip joint; Z90.710 Acquired absence of both cervix and uterus; H40.9 Unspecified glaucoma; Z95.820 Peripheral vascular angioplasty status with implants and grafts; Z90.49 Acquired absence of other specified parts of digestive tract; Z87.891 Personal history of nicotine dependence
CPT/HCPCS: 32555; 36415; 36569; 36600; 71045; 71250; 71260; 80048; 80053; 80076; 80202; 82042; 82607; 82728; 82746; 82805; 82945; 82948; 83540; 83550; 83605; 83615; 83735; 83986; 84100; 84155; 84157; 84478; 84484; 85025; 85046; 85055; 85060; 85610; 85730; 87015; 87040; 87070; 87075; 87102; 87116; 87205; 87206; 87426; 87449; 87899; 88104; 88108; 88305; 89051; 92526; 92610; 92611; 93005; 94002; 94003; 94640; 96361; 96365; 96366; 96367; 96375; 97110; 97116; 97162; 97165; 97530; 97535; 99285; A9270; C1751; C9803; G0378; J0131; J0456; J0696; J1940; J2270; J2405; J2930; J3370; J7030; J7512; Q9967